=== PATIENT | female | born 1965 | race Caucasian/White ===

== ENCOUNTER 2023-07-24 09:09 | Outpatient (OUT) | payer MEDICARE, MEDICAID, SELFPAY ==
[2023-07-24 09:40] LABS: Hematocrit 47.3 % (36.0-48.0); Hemoglobin 15.9 g/dL (12.0-16.0)
[2023-07-24 09:42] LABS: Bilirubin Urine NEGATIVE (NEGATIVE); Blood Urine NEGATIVE (NEGATIVE); Clarity Urine CLEAR (CLEAR); Color Urine LT. YELLOW (YELLOW); Glucose Urine UA NEGATIVE (NEGATIVE); Ketones Urine NEGATIVE (NEGATIVE); Leukocyte Esterase Urine NEGATIVE (NEGATIVE); Nitrite Urine NEGATIVE (NEGATIVE); Protein Urine NEGATIVE (NEG/TRACE); Specific Gravity Urine <=1.005 (1.005-1.025); Urobilinogen Urine 0.2 EU/dL (0.2-1.0); pH Urine 5.5 (5.0-9.0)
[2023-07-24 09:51] LABS: Bacteria Urine NONE SEEN #/HPF (NONE SEEN); Cast Seen? NONE SEEN #/LPF (NONE SEEN); Crystals Seen? None Seen #/HPF (None Seen); Mucus Urine NONE SEEN (NONE SEEN); RBC Urine 0-2 #/HPF (0-2); Squamous Epithelial Cell Urine RARE #/LPF (NONE/RARE); Urine Culture Indicated NO; WBC Urine 0-2 #/HPF (NONE SEEN)
[2023-07-24 11:53] LABS: Creatinine Urine Random 17.96 mg/dL (20.00-300.00)
[2023-07-24 11:56] LABS: Protein Creatinine Ratio Urine 0.33; Total Protein Urine Random <6.0 mg/dL (<=11.9)
[2023-07-24 13:15] LABS: Albumin Level 3.8 g/dL (3.4-5.0); Anion Gap 16.3; BUN Creatinine Ratio 10.1; Calcium 9.7 mg/dL (8.5-10.1); Carbon Dioxide 26.9 mmol/L (21.0-32.0); Chloride 102 mmol/L (98-107); Estimated GFR (African America 52 (>=60); Estimated GFR (Non-African Ame 43 (>=60); Glucose 92 mg/dL (74-106); Magnesium 1.8 mg/dL (1.8-2.4); Potassium 4.2 mmol/L (3.5-5.1); Sodium 141 mmol/L (136-145); Uric Acid 7.2 mg/dL (2.6-6.0)
[2023-07-25 13:08] LABS: PTH, Intact 34 pg/mL (15-65)
== END 2023-07-24 09:10 | disposition home or self-care (01) ==
PROVIDERS: PCP Nurse Practitioner; Visit Provider Internal Medicine
DX: I12.9 Hypertensive chronic kidney disease with stage 1 through stage 4 chronic kidney disease, or unspecified chronic kidney disease (principal); N18.30 Chronic kidney disease, stage 3 unspecified; E55.9 Vitamin D deficiency, unspecified; E79.0 Hyperuricemia without signs of inflammatory arthritis and tophaceous disease; E87.6 Hypokalemia; E83.42 Hypomagnesemia
CPT/HCPCS: 36415; 80069; 81001; 82306; 82570; 83735; 83970; 84156; 84550; 85014; 85018

== ENCOUNTER 2023-09-24 08:15 | Outpatient (OUT) | payer MEDICARE, MEDICAID, SELFPAY ==
--- NOTE | 2023-09-24 08:18 | MM_ITS ---
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 MG MAMM SCREEN 3D KYLEE CAD, 05/16/2021. MG MAMM RT DIAG W CAD, 08/29/2020. MG MAMM KYLEE SCRN W CAD DIG, 04/23/2013. INDICATIONS: Screening Calculator Name NCI Breast Cancer Risk Assessment Tool 5 Year Breast Cancer Risk 1.00% Lifetime Breast Cancer Risk 6.30% Personal Breast Cancer No Personal Ovarian Cancer No Treatments None Family Cancers Father with lung cancer at age 60. LOCATION: [facility] BREAST COMPOSITION: Scattered areas fibroglandular density. FINDINGS: DIAGNOSTIC CATEGORY 2--BENIGN FINDING: RIGHT BREAST: No significant suspicious finding. No significant change has occurred. LEFT BREAST: No significant suspicious finding. Stable biopsy marker clip upper-outer quadrant. No significant change has occurred. RECOMMENDATIONS: ROUTINE MAMMOGRAM AND CLINICAL EVALUATION IN 12 MONTHS. PLEASE NOTE: A NORMAL MAMMOGRAM DOES NOT EXCLUDE THE POSSIBILITY OF BREAST CANCER. A CLINICALLY SUSPICIOUS PALPABLE LUMP SHOULD BE BIOPSIED. Dictated by: Jim Gabriel M.D. on 09/29/2023 at 12:40 Approved by: Jim Gabriel M.D. on 09/29/2023 at 12:45
== END 2023-09-24 08:16 | disposition home or self-care (01) ==
LOC: MAMMO 08:16
PROVIDERS: PCP Nurse Practitioner; Visit Provider Nurse Practitioner
DX: Z12.31 Encounter for screening mammogram for malignant neoplasm of breast (principal)
CPT/HCPCS: 77063; 77067

== ENCOUNTER 2024-02-17 08:21 | Outpatient (OUT) | payer MEDICARE, MEDICAID, SELFPAY ==
--- OUTSIDE RECORDS SUMMARY | 2024-02-17 08:26 | XMS_ITS | CCD ---
Author Organization [facility] Care Team Providers Care Blind Stitch Machine Operator Name Role Phone Michael Mcguire Unavailable Berny, Rosanna Unavailable AICHHOLZ, ANODE MACHINE OPERATOR ZEE Primary Care Unavailable AICHHOLZ, ANODE MACHINE OPERATOR ZEE Admitting Unavailable AICHHOLZ, ANODE MACHINE OPERATOR ZEE Consulting Unavailable AICHHOLZ, ANODE MACHINE OPERATOR ZEE Attending Unavailable AICHHOLZ, ANODE MACHINE OPERATOR ZEE Attending Unavailable AICHHOLZ, ANODE MACHINE OPERATOR ZEE Consulting Unavailable AICHHOLZ, ANODE MACHINE OPERATOR ZEE Primary Care Unavailable AICHHOLZ, ANODE MACHINE OPERATOR ZEE Admitting Unavailable BERNY, ROSANNA Consulting Unavailable BERNY, ROSANNA Attending Unavailable BERNY, ROSANNA Admitting Unavailable FAWWAD, HARVEY H Primary Care Unavailable AICHHOLZ, ANODE MACHINE OPERATOR ZEE Attending Unavailable AICHHOLZ, ANODE MACHINE OPERATOR ZEE Consulting Unavailable AICHHOLZ, ANODE MACHINE OPERATOR ZEE Primary Care Unavailable AICHHOLZ, ANODE MACHINE OPERATOR ZEE Admitting Unavailable AICHHOLZ, ANODE MACHINE OPERATOR ZEE Attending Unavailable AICHHOLZ, ANODE MACHINE OPERATOR ZEE Primary Care Unavailable AICHHOLZ, ANODE MACHINE OPERATOR ZEE Admitting Unavailable DR MICHAEL PATTERSON V Consulting Unavailable AICHHOLZ, ANODE MACHINE OPERATOR ZEE Consulting Unavailable AICHHOLZ, ANODE MACHINE OPERATOR ZEE Attending Unavailable AICHHOLZ, ANODE MACHINE OPERATOR ZEE Primary Care Unavailable AICHHOLZ, ANODE MACHINE OPERATOR ZEE Consulting Unavailable AICHHOLZ, ANODE MACHINE OPERATOR ZEE Admitting Unavailable BERNY, ROSANNA Admitting Unavailable BERNY, ROSANNA Consulting Unavailable BERNY, ROSANNA Attending Unavailable AICHHOLZ, ANODE MACHINE OPERATOR ZEE Primary Care Unavailable AICHHOLZ, ANODE MACHINE OPERATOR ZEE Attending Unavailable AICHHOLZ, ANODE MACHINE OPERATOR ZEE Primary Care Unavailable DR MICHAEL PATTERSON V Consulting Unavailable AICHHOLZ, ANODE MACHINE OPERATOR ZEE Admitting Unavailable AICHHOLZ, ANODE MACHINE OPERATOR ZEE Consulting Unavailable AICHHOLZ, ANODE MACHINE OPERATOR ZEE Attending Unavailable PRAVIN STEVENS Primary Care Unavailable PRAVIN STEVENS Consulting Unavailable PRAVIN STEVENS Admitting Unavailable Ry Tillman MD Primary Care Provider [phone] ZEE STEVENS Attending Unavailable Allergies Allergy Classification Reported Allergen(s) Allergy Type Date of Onset Reaction(s) Facility (1 source) Codeine Drug Allergy 06-18-2023 [facility] Work Phone: Medications Current Medications Medication Drug Class(es) Dates Sig (Normalized) Sig (Original) [id number] 200 actuat albuterol 0.09 mg/actuat metered dose inhaler (6 sources) beta2-Adrenergic Agonist Start: 04-15-2023 take 2 puff(s) by mouth every six hours as needed for wheezing albuterol HFA 90 mcg/act inhaler INHALE 2 PUFFS BY MOUTH EVERY 6 HOURS NEEDED FOR WHEEZING SHORTNESS OF BREATH 0 04/15/2023 Active albuterol (2.5 M G/3ML) 0.083% nebulizer solution Take 3 mL by nebulization every 6 (six) hours if needed for wheezing or shortness of breath 0 Active amitriptyline hydrochloride 150 mg oral tablet (8 sources) Tricyclic Antidepressant Start: 11-07-2023 take 1 tablet by mouth at bedtime amitriptyline (Elavil) 150 MG tablet Indications: Polyneuropathy, unspecified Take 1 tablet (150 mg) by mouth at bedtime 30 tablet 5 11/07/2023 Active take 1 tablet by juanita th every twenty-four hours Amitriptyline HCl 150 MG 1 tablet at bedtime Orally Once a day Active amoxicillin 875 mg / clavulanate 125 mg oral tablet (5 sources) Penicillin-class Antibacterial Start: 01-13-2024 End: 01-23-2024 take 1 tablet by mouth in the morning amoxicillin-clavulanate (Augmentin) 875-125 MG tablet Indications: Acute non-recurrent sinusitis of other sinus Take 1 tablet (875 mg) by mouth in the morning and 1 tablet (875 mg) before bedtime. Do all this for 10 days. 20 tablet 0 01/13/2024 01/23/2024 Active Start: 04-15-2023 take 1 tablet by juanita th in the morning amoxicillin-clavulanate (Augmentin) 875-125 MG tablet Take 1 tablet by mouth in the morning and 1 tablet in the evening. Take with meals. 0 04/15/2023 Active atorvastatin 80 mg oral tablet (8 sources) HMG-CoA Reductase Inhibitor Start: 12-22-2023 End: 03-21-2024 take 1 tablet by mouth in the morning atorvastatin (Lipitor) 80 MG tablet Indications: Hyperlipidemia, unspecified (CMS/HCC) Take 1 tablet (80 mg) by mouth in the morning. 90 tablet 0 12/22/2023 03/21/2024 Active take 1 tablet by mouth once anshul y Atorvastatin Calcium 80 MG TAKE 1 TABLET BY MOUTH DAILY Oral for 30 Active benzonatate 100 mg oral capsule (2 sources) Non-narcotic Antitussive Start: 04-15-2023 End: 01-13-2024 take 1 capsule by mouth every eight hours as needed benzonatate (Tessalon) 100 MG capsule TAKE 1 CAPSULE BY MOUTH EVERY 8 HOURS NEEDED (with full glass OF water) 0 04/15/2023 01/13/2024 Discontinued (Therapy completed) calcium carbonate 1250 mg / cholecalciferol 600 unt chewable tablet (3 sources) Vitamin D take 1 tablet by mouth every twenty-four hours Os-Osvaldo 500-600 MG-UNIT 1 tablet with a meal Orally Once a day Active celecoxib 200 mg oral capsule (3 sources) Nonsteroidal Anti-inflammatory Drug Start: 10-15-2023 take 1 capsule by mouth in the morning celecoxib (CeleBREX) 200 MG capsule Take 1 capsule by mouth in the morning. 0 10/15/2023 Active cholecalciferol 1.25 mg oral capsule (1 source) Vitamin D take 1 capsule by mouth every week Vitamin D3 1.25 MG (19527 UT) 1 capsule Orally once a week Active ciclopirox 7.7 mg/ml topical cream (3 sources) Start: 12-09-2022 ciclopirox (Loprox) 0.77 % cream APPLY TO THE AFFECTED AREA(S) TWICE DAILY NEEDED 0 12/09/2022 Active cyclobenzaprine hydrochloride 10 mg oral tablet (8 sources) Muscle Relaxant take 1 tablet by mouth at bedtime cyclobenzaprine (Flexeril) 10 MG tablet Take 10 mg by mouth at bedtime. 0 Active DULoxetine 60 mg delayed release oral capsule (8 sources) Serotonin and Norepinephrine Reuptake Inhibitor Start: 12-22-2023 End: 03-21-2024 take 1 capsule by mouth in the morning DULoxetine (Cymbalta) [address] capsule Indications: Depression, unspecified (CMS/HCC) Take 1 capsule (60 mg) by mouth in the morning. 90 capsule 0 12/22/2023 03/21/2024 Active take 1 capsule by mo ut every twenty-four hours DULoxetine HCl 60 MG 1 capsule Orally Once a day Active ergocalciferol 1.25 mg oral capsule (7 sources) Provitamin D2 Compound Start: 12-22-2023 End: 03-15-2024 take 1 capsule by mouth every week ergocalciferol (Vitamin D2) 1.25 MG (52104 UT) capsule Indications: Vitamin D deficiency, unspecified Take 1 capsule (1.25 mg) by mouth 1 (one) time per week 12 capsule 0 12/22/2023 03/15/2024 Active take 1 capsule by mouth every we ek Vitamin D (Ergocalciferol) 50 MCG (1999 UT) 1 capsule Orally once a week Active take 1 capsule by mo uth every twenty-four hours Vitamin D (Ergocalciferol) 50 MCG (1999 UT) 1 capsule Orally Once a day Active gabapentin 600 mg oral tablet (8 sources) Anti-epileptic Agent Start: 11-07-2023 take 1 tablet by mouth every eight hours gabapentin (Neurontin) 600 MG tablet Indications: Fibromyalgia Take 1 tablet (600 mg) by mouth every 8 (eight) hours 90 tablet 5 11/07/2023 Active take 1 tablet by mouth every eig ht hours Gabapentin 600 MG 1 tablet Orally three times a day Active levothyroxine sodium 0.137 mg oral tablet (8 sources) l-Thyroxine Start: 11-07-2023 take 1 tablet by mouth before mealtime levothyroxine (Synthroid, Levoxyl) 137 MCG tablet Indications: Hypothyroidism, unspecified (CMS/HCC) Take 137 mcg by mouth in the morning. Take before meals. 30 tablet 5 11/07/2023 Active take 1 tablet by juanita th once daily in the morning Levoxyl 137 MCG 1 tablet in the morning on an empty stomach Orally Once a day Active take 1 tablet by juanita th once daily in the morning Levoxyl 125 MCG 1 tablet in the morning on an empty stomach Orally Once a day Active linaclotide 0.145 mg oral capsule (8 sources) Guanylate Cyclase-C Agonist Start: 11-21-2022 Linzess 145 MCG capsule TAKE 1 CAPSULE BY MOUTH 30 MINUTES BEFORE the first meal OF the day ON AN EMPTY STOMACH 0 11/21/2022 Active Start: 08-01-2021 Linzess 145 MC G 1 capsule at least 30 minutes before the first meal of the day on an empty stomach Orally Once a day for 30 day(s) Aug, Active magnesium oxide 400 mg oral tablet (5 sources) Start: 06-06-2022 take 1 tablet by mouth in the morning magnesium oxide (Mag-Ox) 400 (240 Mg) MG tablet Take 400 mg by mouth in the morning. 0 06/18/2023 Active Magnesium Oxide -Mg Supplement 400 (240 Mg) MG (1 source) take 1 tablet by mouth once daily Magnesium Oxide -Mg Supplement 400 (240 Mg) MG TAKE 1 TABLET BY MOUTH DAILY for 90 Active 24 hr metoprolol succinate 100 mg extended release oral tablet (8 sources) beta-Adrenergic Arsenio Start: 05-20-2023 take 1 tablet by mouth every twenty-four hours in the morning metoprolol succinate XL (Toprol-XL) 100 MG 24 hr tablet Take 100 mg by mouth in the morning. 0 05/20/2023 Active take 1 tablet by juanita th every twenty-four hours Toprol XL 100 MG 1 tablet Orally Once a day Active take 1 tablet by juanita th every twenty-four hours Toprol XL 50 MG 1 tablet Orally Once a day Active Multiple Vitamin (Tab-A-Flavio) tablet (3 sources) Start: 11-21-2022 take 1 tablet by mouth in the morning Multiple Vitamin (Tab-A-Flavio) tablet Take 1 tablet by mouth in the morning. 0 11/21/2022 Active omeprazole 40 mg delayed release oral capsule (5 sources) Proton Pump Inhibitor take 1 capsule by mouth once daily Omeprazole 40 MG 1 capsule 30 minutes before morning meal Orally Once a day Active pantoprazole 40 mg delayed release oral tablet (3 sources) Proton Pump Inhibitor Start: 11-07-2023 take 1 tablet by mouth in the morning pantoprazole (ProtoNix) 40 MG EC tablet Indications: Gastro-esophageal reflux disease without esophagitis Take 1 tablet (40 mg) by mouth in the morning. 30 tablet 5 11/07/2023 Active phentermine hydrochloride 37.5 mg oral tablet (2 sources) Sympathomimetic Amine Anorectic Start: 01-13-2024 End: 02-12-2024 take 1 tablet by mouth before mealtime phentermine (Adipex-P) 37.5 MG tablet Indications: BMI 40.0-44.9, adult (CMS/HCC) Take 1 tablet (37.5 mg) by mouth in the morning. Take before meals. 30 tablet 0 01/13/2024 02/12/2024 Active spironolactone 50 mg oral tablet (8 sources) Aldosterone Antagonist Start: 05-20-2023 take 1 tablet by mouth in the morning spironolactone (Aldactone) 50 MG tablet Take 50 mg by mouth in the morning. 0 05/20/2023 Active Tab-A-Flavio - (4 sources) take 1 tablet by mouth every twenty-four hours Tab-A-Flavio - 1 tablet Orally Once a day Active traMADol hydrochloride 50 mg oral tablet (3 sources) Opioid Agonist traMADol (Ultram ) 50 MG tablet Take by mouth. 0 Active Completed/Discontinued Medications Medication Drug Class(es) Dates Sig (Normalized) Sig (Original) dicyclomine hydrochloride 20 mg oral tablet (4 sources) Anticholinergic Start: 09-12-2021 take 1 tablet by mouth twice daily as needed Dicyclomine HCl 20 MG 1 tablet Orally TWICE A DAY prn for 30 day(s) Aug, Not-Taking ondansetron 4 mg oral tablet (7 sources) Serotonin-3 Receptor Antagonist Start: 08-01-2021 take 1 tablet by mouth three times daily as needed Ondansetron HCl 4 MG 1 tablet Orally TID PRN for 30 day(s) Aug, Not-Taking Problems Active Problems Problem Classification Problem Date Documented Da te Episodic/Chronic Anxiety disorders (2 sources) Mixed anxiety and depressive disorder; Translations: [Anxiety disorder, unspecified] Onset: 4 01-13-2024 Chronic Chronic kidney disease (10 sources) Chronic kidney disease stage 3; Translations: [Chronic kidney disease, stage 3 (moderate)] Onset: 4 01-13-2024 Chronic Chronic kidney disease (5 sources) Chronic kidney disease; Translations: [Chronic kidney disease, stage III (moderate)] Onset: 1 Resolved: Chronic obstructive pulmonary disease and bronchiectasis (3 sources) Chronic obstructive lung disease; Translations: [Chronic obstructive pulmonary disease, unspecified] Onset: 4 01-13-2024 Chronic Disorders of lipid metabolism (6 sources) Hyperlipidemia, unspecified; Translations: [Hyperlipidemia] Onset: 3 01-13-2024 Chronic Esophageal disorders (3 sources) Gastroesophageal reflux disease; Translations: [Gastro-esophageal reflux disease without esophagitis] Onset: 4 01-13-2024 Chronic Essential hypertension (11 sources) Hypertensive disorder; Translations: [Essential (primary) hypertension] Onset: 3 01-13-2024 Chronic Fluid and electrolyte disorders (3 sources) Hypokalemia; Translations: [HYPOKALEMIA] Onset: Resolved: Episodic Headache; including migraine (3 sources) Migraine; Translations: [Migraine, unspecified, not intractable, without status migrainosus] Onset: 4 01-13-2024 Chronic Hypertension with complications and secondary hypertension (11 sources) Chronic kidney disease due to hypertension; Translations: [Hypertensive chronic kidney disease with stage 1 through stage 4 chronic kidney disease, or unspecified chronic kidney disease] Onset: 1 Resolved: 1 Chronic Immunizations and screening for infectious disease (3 sources) Anti-nuclear factor positive; Translations: [Other specified abnormal immunological findings in serum] Onset: 4 01-13-2024 Episodic Mood disorders (3 sources) Major depressive disorder; Translations: [Major depressive disorder, single episode, unspecified] Onset: 4 01-13-2024 Chronic Nausea and vomiting (5 sources) Nausea; Translations: [Nausea] Episodic Nutritional deficiencies (11 sources) Vitamin D deficiency; Translations: [Vitamin D deficiency, unspecified] Onset: 1 Resolved: 1 Chronic Nutritional deficiencies (4 sources) Deficiency of other specified B group vitamins; Translations: [Cobalamin deficiency] Onset: 3 01-13-2024 Episodic Other acquired deformities (3 sources) Spondylolisthesis; Translations: [Spondylolisthesis, site unspecified] Onset: 4 01-13-2024 Episodic Other circulatory disease (3 sources) Raynaud's phenomenon; Translations: [Raynaud's syndrome without gangrene] Onset: 4 01-13-2024 Chronic Other connective tissue disease (3 sources) Fibromyalgia; Translations: [Fibromyalgia] Onset: 4 01-13-2024 Episodic Other disorders of stomach and duodenum (5 sources) Gastroparesis syndrome; Translations: [Gastroparesis] Episodic Other gastrointestinal disorders (5 sources) Irritable bowel syndrome characterized by constipation; Translations: [Irritable bowel syndrome with constipation] Chronic Other gastrointestinal disorders (1 source) Irritable bowel syndrome with constipation; Translations: [Irritable bowel syndrome with constipation K58.1] Onset: 1 Resolved: 1 Chronic Other gastrointestinal disorders (8 sources) Constipation; Translations: [Constipation, unspecified] Onset: 4 01-13-2024 Episodic Other liver diseases (3 sources) Alkaline phosphatase raised; Translations: [Abnormal levels of other serum enzymes] Onset: 4 01-13-2024 Episodic Other nervous system disorders (3 sources) Peripheral nerve disease ; Translations: [Polyneuropathy, unspecified] Onset: 4 01-13-2024 Chronic Other nervous system disorders (3 sources) Paresthesia of lower extremity; Translations: [Paresthesia of skin] Onset: 4 01-13-2024 Episodic Other nutritional; endocrine; and metabolic disorders (2 sources) Hypomagnesemia; Translations: [Hypomagnesemia] Chronic Other nutritional; endocrine; and metabolic disorders (1 source) Hypomagnesemia Chronic Other nutritional; endocrine; and metabolic disorders (4 sources) Body mass index 40+ - severely obese; Translations: [Body mass index (BMI) 40.0-44.9, adult] Onset: 4 01-13-2024 Chronic Other nutritional; endocrine; and metabolic disorders (4 sources) Severe obesity; Translations: [Morbid (severe) obesity due to excess calories] Onset: 4 01-13-2024 Chronic Other nutritional; endocrine; and metabolic disorders (3 sources) Hyperuricemia without signs of inflammatory arthritis and tophaceous disease; Translations: [HU W/O SIGNS IA AND TOPHACEOUS DZ] Onset: 1 Resolved: 1 Episodic Other nutritional; endocrine; and metabolic disorders (3 sources) Hyperuricemia; Translations: [Hyperuricemia without signs of inflammatory arthritis and tophaceous disease] Onset: 4 01-13-2024 Episodic Other upper respiratory disease (3 sources) Allergic disposition; Translations: [Other allergic rhinitis] Onset: 4 01-13-2024 Chronic Other upper respiratory infections (4 sources) Acute sinusitis; Translations: [Other acute sinusitis] Onset: 4 01-13-2024 Episodic Peripheral and visceral atherosclerosis (4 sources) Peripheral vascular disease, unspecified; Translations: [PERIPHERAL VASCULAR DISEASE UNS] Onset: 2 Chronic Residual codes; unclassified (5 sources) Obstructive sleep apnea syndrome; Translations: [Obstructive sleep apnea (adult) (pediatric)] Onset: 4 01-13-2024 Chronic Residual codes; unclassified (5 sources) Tobacco user; Translations: [Tobacco use] Onset: 4 01-13-2024 Episodic Spondylosis; intervertebral disc disorders; other back problems (16 sources) Intervertebral disc disorder of cervical region with myelopathy; Translations: [Cervical disc disorder with myelopathy, unspecified cervical region] Onset: 4 01-13-2024 Chronic Spondylosis; intervertebral disc disorders; other back problems (3 sources) Spinal stenosis; Translations: [Spinal stenosis, site unspecified] Onset: 4 01-13-2024 Episodic Thyroid disorders (15 sources) Hypothyroidism; Translations: [Unspecified hypothyroidism] Onset: 2 Chronic Unclassified (4 sources) CHRN KIDNEY DISEASE STG 3 UNSP; Translations: [CHRN KIDNEY DISEASE STG 3 UNSP] Onset: 2 Past or Other Problems Problem Classification Problem Date Documented Da te Episodic/Chronic Abdominal pain (1 source) Upper abdominal pain, unspecified; Translations: [Upper abdominal pain R10.10] Onset: 09-12-2021 Resolved: 09-12-2021 Episodic Malaise and fatigue (4 sources) Other fatigue; Translations: [OTHER FATIGUE] Onset: 03-05-2022 Episodic Other disorders of stomach and duodenum (1 source) Gastroparesis; Translations: [Gastroparesis K31.84] Onset: 09-12-2021 Resolved: 09-12-2021 Episodic Other gastrointestinal disorders (1 source) Constipation, unspecified Onset: 06-27-2022 Resolved: 06-27-2022 Episodic Other liver diseases (4 sources) Abnormal levels of other serum enzymes; Translations: [ABNORMAL LEVELS OTHER SERUM ENZYMES] Onset: 03-29-2022 Episodic Other screening for suspected conditions (not mental disorders or infectious disease) (4 sources) Encounter for screening mammogram for malignant neoplasm of breast; Translations: [ENC SCR MAMMO MALIG NEOPLASM BREAST] Onset: 08-13-2022 Episodic Residual codes; unclassified (1 source) Family history of malignant neoplasm of trachea, bronchus and lung; Translations: [FAM HX MALIG NEOPLSM TRACH BRON LNG] Onset: 08-18-2022 Episodic Thyroid disorders (3 sources) Disorder of thyroid gland; Translations: [Disorder of thyroid, unspecified] Onset: 10-16-2023 Resolved: 10-16-2023 10-16-2023 Episodic Unclassified (1 source) CHRN KIDNEY DISEASE STG 3 UNSP; Translations: [CHRN KIDNEY DISEASE STG 3 UNSP] Onset: 12-31-2022 Results Test Name Value Interpretation Reference Range Facility FREE T4on 02-03-2023 Free T4 [Mass/Vol] 1.10 ng/dL Normal 0.76-1.46 [facility] Comment on above: Performed By: #### U AMIC #### [facility] [address] [address] [address] Son Higgins TSHon 02-03-2023 TSH 1.871 uIU/mL Normal 0.358-3.740 [facility] Comment on above: Performed By: #### U AMIC #### [facility] [address] [place], [place] [address] Dr. Son Higgins PTH INTACTon 01-01-2023 PTH, Intact 18 pg/mL Normal 15-65 [facility] Comment on above: Performed By: #### P THINT #### [facility] [address] [place] [address] Dr. Son Higgins HEMOGRAM AND PLATELon 2022 Hematocrit (Bld) [Volume fraction] 47.4 % Normal 36.0-48.0 [facility] Comment on above: Performed By: #### U AMIC #### [facility] [address] [place] [address] Dr. Son Higgins Hemoglobin (Bld) [Mass/Vol] 15.5 g/dL Normal 12.0-16.0 [facility] Comment on above: Performed By: #### U AMIC #### [facility] [address] [place] [address] Dr. Son Higgins MCH (RBC) [Entitic mass] 30.3 pg Normal 26.7-34.0 [facility] Comment on above: Performed By: #### U AMIC #### [facility] [address] [place] [address] Dr. Son Higgins MCHC (RBC) [Mass/Vol] 32.7 g/dL Normal 29.9-35.2 [facility] Comment on above: Performed By: #### U AMIC #### [facility] [address] [place] [address] Dr. Son Higgins MCV (RBC) [Entitic vol] 92.6 fL Normal 81.0-99.0 [facility] Comment on above: Performed By: #### U AMIC #### [facility] [address] [place] [address] Dr. Son Higgins PLT 271 103/ul Normal 150-450 [facility] Comment on above: Performed By: #### U AMIC #### [facility] [address] [place] [address] Dr. Son Higgins RBC 5.12 106/ul Normal 4.20-5.40 [facility] Comment on above: Performed By: #### U AMIC #### [facility] [address] [place] [address] Dr. Son Higgins WBC 11.5 103/ul Critically high 4.0-11.0 [facility] Comment on above: Performed By: #### U AMIC #### [facility] [address] [address] [address] Son Higgins MAGNESIUMon 12-31-2022 Magnesium [Mass/Vol] 1.5 mg/dL Critically low 1.8-2.4 [facility] Comment on above: Performed By: #### M G, URIC, RENAL #### [facility] [address] [address] [address] Son Higgins RENAL FUNCTION PANELon 12-31 Albumin [Mass/Vol] 3.6 g/dL Normal 3.4-5.0 [facility] Comment on above: Performed By: #### M G, URIC, RENAL #### [facility] [address] [place] [address] Dr. Son Higgins Calcium [Mass/Vol] 9.5 mg/dL Normal 8.5-10.1 [facility] Comment on above: Performed By: #### M G, URIC, RENAL #### [facility] [address] [place] [address] Dr. Son Higgins Chloride [Moles/Vol] 100 mmol/L Normal 98-107 [facility] Comment on above: Performed By: #### M G, URIC, RENAL #### [facility] [address] [place] [address] Dr. Son Higgins CO2 [Moles/Vol] 29.3 mmol/L Normal 21.0-32.0 [facility] Comment on above: Performed By: #### M G, URIC, RENAL #### [facility] [address] [place] [address] Dr. Son Higgins Creatinine [Mass/Vol] 1.32 mg/dL Critically high 0.55-1.02 [facility] Comment on above: Performed By: #### M G, URIC, RENAL #### [facility] [address] [place] [address] Dr. Son Higgins EGFR-AF NEPALESE 51 mL/min/1.73m2 Critically low >=60 [facility] Comment on above: Performed By: #### M G, URIC, RENAL #### [facility] [address] [address] [address] Son Higgins EGFR-NON AF NEPALESE 42 mL/min/1.73m2 Critically low >=60 [facility] Comment on above: Performed By: #### M G, URIC, RENAL #### [facility] [address] [address] [address] Son Higgins Glucose [Mass/Vol] 110 mg/dL Critically high 74-106 [facility] Comment on above: Performed By: #### M G, URIC, RENAL #### [facility] [address] [address] [address] Son Higgins Phosphate [Mass/Vol] 4.3 mg/dL Normal 2.6-4.7 [facility] Comment on above: Performed By: #### M G, URIC, RENAL #### [facility] [address] [address] [address] Son Higgins Potassium [Moles/Vol] 3.5 mmol/L Normal 3.5-5.1 [facility] Comment on above: Performed By: #### M G, URIC, RENAL #### [facility] [address] [address] [address] Son Higgins Sodium [Moles/Vol] 140 mmol/L Normal 136-145 [facility] Comment on above: Performed By: #### M G, URIC, RENAL #### [facility] [address] [address] [address] Son Higgins Urea nitrogen [Mass/Vol] 12.0 mg/dL Normal 7.0-18.0 [facility] Comment on above: Performed By: #### M G, URIC, RENAL #### [facility] [address] [address] [address] Son Higgins UA RANDOM W/MICROSCOPICon BACTERIA NONE SEEN Normal NONE SEEN [facility] Comment on above: Performed By: #### U AMIC #### [facility] [address] [address] [address] Son Higgins Bilirubin Ql (U) Negative Normal NEGATIVE [facility] Comment on above: Performed By: #### U AMIC #### [facility] [address] [address] [address] Son Higgins CAST NONE SEEN Normal NONE SEEN [facility] Comment on above: Performed By: #### U AMIC #### [facility] [address] [address] [address] Son Higgins Clarity (U) CLEAR Normal CLEAR [facility] Comment on above: Performed By: #### U AMIC #### [facility] [address] [address] [address] Son Higgins Color (U) LT. YELLOW Normal YELLOW [facility] Comment on above: Performed By: #### U AMIC #### [facility] [address] [address] [address] Son Higgins Crystals LM Nom (Urine sed) NONE SEEN Normal NONE SEEN [facility] Comment on above: Performed By: #### U AMIC #### [facility] [address] [address] [address] Son Higgins Epithelial cells LM Ql (Urine sed) NONE SEEN Normal NONE SEEN /RARE [facility] Comment on above: Performed By: #### U AMIC #### [facility] [address] [place] [address] Dr. Son Higgins Glucose Ql (U) Negative Normal NEGATIVE [facility] Comment on above: Performed By: #### U AMIC #### [facility] [address] [address] [address] Son Higgins Hemoglobin Ql (U) Negative Normal NEGATIVE [facility] Comment on above: Performed By: #### U AMIC #### [facility] [address] [address] [address] Son Higgins Ketones Ql (U) Negative Normal NEGATIVE [facility] Comment on above: Performed By: #### U AMIC #### [facility] [address] [address] [address] Son Higgins LEUKOCYTES Negative Normal NEGATIVE [facility] Comment on above: Performed By: #### U AMIC #### [facility] [address] [address] [address] Son Higgins MUCOUS NONE SEEN Normal NONE SEEN [facility] Comment on above: Performed By: #### U AMIC #### [facility] [address] [address] [address] Son Higgins Nitrite Ql (U) Negative Normal NEGATIVE [facility] Comment on above: Performed By: #### U AMIC #### [facility] [address] [place] [address] Dr. Son Higgins pH (U) 5.5 [pH] Normal 5-9 [facility] Comment on above: Performed By: #### U AMIC #### [facility] [address] [place] [address] Dr. Son Higgins RBC 0-2 Normal 0-2 [facility] Comment on above: Performed By: #### U AMIC #### [facility] [address] [place] [address] Dr. Son Higgins SPEC GRAVITY <=1.005 Abnormal 1.005-<=1.025 [facility] Comment on above: Performed By: #### U AMIC #### [facility] [address] [address] [address] Son Higgins UA PROTEIN Negative Normal NEGATIVE/ TRACE [facility] Comment on above: Performed By: #### U AMIC #### [facility] [address] [place] [address] Dr. Son Higgins Urobilinogen Qn (U) 0.2 {Lopez'U}/dL Normal 0.2 - 1. 0 [facility] Comment on above: Performed By: #### U AMIC #### [facility] [address] [place] [address] Dr. Son Higgins WBC NONE SEEN Normal NONE SEEN [facility] Comment on above: Performed By: #### U AMIC #### [facility] [address] [place] [address] Dr. Son Higgins URIC ACID SERUMon 12-31-2022 Urate [Mass/Vol] 6.8 mg/dL Critically high 2.6-6.0 [facility] Comment on above: Performed By: #### M G, URIC, RENAL #### [facility] [address] [place] [address] Dr. Son Higgins URINE T PROTEIN CREAT RATIOo n 12-31-2022 UR PROT CREAT RAT 0.37 Normal [facility] Comment on above: Result Comment: Prev iously reported as: 0.30 On 12/31/2022 09:37 By [email or web address] Performed By: #### M G, URIC, RENAL #### [facility] [address] [place] [address] Dr. Son Higgins UR TOTAL PROTEIN <6.0 Normal <=12.0 [facility] Comment on above: Result Comment: Prev iously reported as: 4.8 On 12/31/2022 09:37 By [email or web address] Performed By: #### M G, URIC, RENAL #### [facility] [address] [place] [address] Dr. Son Higgins URINE CREAT 16.27 mg/dL Critically low 20.00-300.00 [facility] Comment on above: Performed By: #### M G, URIC, RENAL #### [facility] [address] [place] [address] Dr. Son Higgins VITAMIN D 25 OHon 12-31-2022 VIT D 25-OH 45.7 ng/mL Normal [facility] Comment on above: Performed By: #### V ITAD #### [facility] [address] [place] [address] Dr. Son Higgins VIT D RANGES SEE BELOW Normal [facility] Comment on above: Result Comment: <20 ng/mL Vit D deficient 20 - <30 ng/mL Vit D insufficient 30 - 100 ng/mL Vit D sufficient >100 ng/mL Potential Toxicity Performed By: #### V ITAD #### [facility] [address] [place] [address] Dr. Son Higgins CBC AUTO DIFFon 12-10-2022 BASO # 0.1 103/ul Normal 0.0-0.1 [facility] Comment on above: Performed By: #### C BC #### [facility] [address] [address] [address] Son Higgins Basophils/100 WBC (Bld) 0.9 % Normal 0.2-2.0 [facility] Comment on above: Performed By: #### C BC #### [facility] [address] [place] [address] Dr. Son Higgins EO # 0.4 103/ul Normal 0.0-0.7 [facility] Comment on above: Performed By: #### C BC #### [facility] [address] [place] [address] Dr. Son Higgins Eosinophils/100 WBC (Bld) 3.1 % Normal 0.9-7.0 [facility] Comment on above: Performed By: #### C BC #### [facility] [address] [place] [address] Dr. Son Higgins Erythrocyte distribution width (RBC) [Ratio] 15.0 % Normal 11.0-15.0 [facility] Comment on above: Performed By: #### C BC #### [facility] [address] [place] [address] Dr. Son Higgins Hematocrit (Bld) [Volume fraction] 44.5 % Normal 36.0-48.0 [facility] Comment on above: Performed By: #### C BC #### [facility] [address] [place] [address] Dr. Son Higgins Hemoglobin (Bld) [Mass/Vol] 15.0 g/dL Normal 12.0-16.0 [facility] Comment on above: Performed By: #### C BC #### [facility] [address] [place] [address] Dr. Son Higgins IG # 0.07 10e3/ul Critically high 0.00-0.03 [facility] Comment on above: Performed By: #### C BC #### [facility] [address] [place] [address] Dr. Son Higgins IG % 0.6 % Critically high 0.0-0.5 [facility] Comment on above: Performed By: #### C BC #### [facility] [address] [place] [address] Dr. Son Higgins LYMPH # 3.7 103/ul Normal 1.2-3.8 [facility] Comment on above: Performed By: #### C BC #### [facility] [address] [place] [address] Dr. Son Higgins Lymphocytes/100 WBC (Bld) 31.8 % Normal 20.5-60.0 [facility] Comment on above: Performed By: #### C BC #### [facility] [address] [place] [address] Dr. Son Higgins MANUAL DIFF REQ NO Normal [facility] Comment on above: Performed By: #### C BC #### [facility] [address] [place] [address] Dr. Son Higgins MCH (RBC) [Entitic mass] 30.4 pg Normal 26.7-34.0 [facility] Comment on above: Performed By: #### C BC #### [facility] [address] [place] [address] Dr. Son Higgins MCHC (RBC) [Mass/Vol] 33.7 g/dL Normal 29.9-35.2 [facility] Comment on above: Performed By: #### C BC #### [facility] [address] [place] [address] Dr. Son Higgins MCV (RBC) [Entitic vol] 90.3 fL Normal 81.0-99.0 [facility] Comment on above: Performed By: #### C BC #### [facility] [address] [place] [address] Dr. Son Higgins MONO # 0.6 103/ul Normal 0.3-0.8 [facility] Comment on above: Performed By: #### C BC #### [facility] [address] [place] [address] Dr. Son Higgins Monocytes/100 WBC (Bld) 5.1 % Normal 1.7-12.0 [facility] Comment on above: Performed By: #### C BC #### [facility] [address] [place] [address] Dr. Son Higgins NEUT # 6.8 103/ul Critically high 1.4-6.5 [facility] Comment on above: Performed By: #### C BC #### [facility] [address] [address] [address] Son Higgins Neutrophils/100 WBC (Bld) 58.5 % Normal 43.0-75.0 [facility] Comment on above: Performed By: #### C BC #### [facility] [address] [address] [address] Son Higgins Platelet mean volume (Bld) [Entitic vol] 10.5 fL Normal 9.5-13.5 [facility] Comment on above: Performed By: #### C BC #### [facility] [address] [place] [address] Dr. Son Higgins PLT 300 103/ul Normal 150-450 [facility] Comment on above: Performed By: #### C BC #### [facility] [address] [address] [address] Son Higgins RBC 4.93 106/ul Normal 4.20-5.40 [facility] Comment on above: Performed By: #### C BC #### [facility] [address] [address] [address] Son Higgins WBC 11.7 103/ul Critically high 4.0-11.0 [facility] Comment on above: Performed By: #### C BC #### [facility] [address] [place] [address] Dr. Son Higgins FREE T4on 12-10-2022 Free T4 [Mass/Vol] 0.99 ng/dL Normal 0.76-1.46 [facility] Comment on above: Performed By: #### M G, URIC, RENAL #### [facility] [address] [place] [address] Dr. Son Higgins LIPID PROFILEon 12-10-2022 CHOL-HDL RATIO NORM SEE BELOW Normal [facility] Comment on above: Result Comment: 3.3 - 4.4 LOW RISK 4.4 - 7.1 AVERAGE RISK 7.1 - 11.0 MODERATE RISK >11.0 HIGH RISK Performed By: #### M G, URIC, RENAL #### [facility] [address] [address] [address] Son Higgins Cholesterol [Mass/Vol] 160 mg/dL Normal <=200 [facility] Comment on above: Performed By: #### M G, URIC, RENAL #### [facility] [address] [address] [address] Son Higgins Cholesterol in HDL [Mass/Vol] 37 mg/dL Critically low 40-60 [facility] Comment on above: Performed By: #### M G, URIC, RENAL #### [facility] [address] [address] [address] Son Higgins Cholesterol in LDL [Mass/Vol] 86.4 mg/dL Normal [facility] Comment on above: Performed By: #### M G, URIC, RENAL #### [facility] [address] [address] [address] Son Higgins Cholesterol.total/C holesterol in HDL [Mass ratio] 4.3 {ratio} Normal [facility] Comment on above: Performed By: #### M G, URIC, RENAL #### [facility] [address] [address] [address] Son Higgins HDL NORMAL > or = 60 mg/dl - LO W CARDIOVASCULAR RISK <40 mg/dl - HIGH CARDIOVASCULAR RISK Normal [facility] Comment on above: Performed By: #### M G, URIC, RENAL #### [facility] [address] [address] [address] Son Higgins LDL CALC NORMAL SEE BELOW Normal [facility] Comment on above: Result Comment: <100 mg/dl OPTIMAL 100 - 129 mg/dl NEAR OR ABOVE OPTIMAL 130 - 159 mg/dl BORDERLINE HIGH 160 - 189 mg/dl HIGH >190 mg/dl VERY HIGH Performed By: #### M G, URIC, RENAL #### [facility] [address] [address] [address] Son Higgins Triglyceride [Mass/Vol] 183 mg/dL Critically high <=150 [facility] Comment on above: Performed By: #### M G, URIC, RENAL #### [facility] [address] [address] [address] Son Higgnis VLDL CALC 36.6 mg/dL Normal [facility] Comment on above: Performed By: #### M G, URIC, RENAL #### [facility] [address] [address] [address] Son Higgins PROF 14(COMP METB)on 023 Albumin [Mass/Vol] 3.7 g/dL Normal 3.4-5.0 [facility] Comment on above: Performed By: #### U AMIC #### [facility] [address] [address] [address] Son Higgins Albumin/Globulin [Mass ratio] 0.8 {ratio} Normal [facility] Comment on above: Performed By: #### U AMIC #### [facility] [address] [place] [address] Dr. Son Higgins ALP [Catalytic activity/Vol] 135 U/L Critically high 46-116 [facility] Comment on above: Performed By: #### U AMIC #### [facility] [address] [address] [address] Son Higgins ALT [Catalytic activity/Vol] 39 U/L Normal 14-59 [facility] Comment on above: Performed By: #### U AMIC #### [facility] [address] [address] [address] Son Higgins Anion gap [Moles/Vol] 14.0 mmol/L Normal [facility] Comment on above: Performed By: #### U AMIC #### [facility] [address] [address] [address] Son Higgins AST [Catalytic activity/Vol] 36 U/L Normal 15-37 [facility] Comment on above: Performed By: #### U AMIC #### [facility] [address] [address] [address] Son Higgins Bilirubin [Mass/Vol] 0.5 mg/dL Normal 0.2-1.0 [facility] Comment on above: Performed By: #### U AMIC #### [facility] [address] [address] [address] Son Higgins Calcium [Mass/Vol] 9.4 mg/dL Normal 8.5-10.1 [facility] Comment on above: Performed By: #### U AMIC #### [facility] [address] [address] [address] Son Higgins Chloride [Moles/Vol] 101 mmol/L Normal 98-107 [facility] Comment on above: Performed By: #### U AMIC #### [facility] [address] [address] [address] Son Higgins CO2 [Moles/Vol] 30.5 mmol/L Normal 21.0-32.0 [facility] Comment on above: Performed By: #### U AMIC #### [facility] [address] [address] [address] Son Higgins Creatinine [Mass/Vol] 1.40 mg/dL Critically high 0.55-1.02 [facility] Comment on above: Performed By: #### U AMIC #### [facility] [address] [address] [address] Son Higgins EGFR-AF NEPALESE 47 mL/min/1.73m2 Critically low >=60 [facility] Comment on above: Performed By: #### U AMIC #### [facility] [address] [address] [address] Son Higgins EGFR-NON AF NEPALESE 39 mL/min/1.73m2 Critically low >=60 [facility] Comment on above: Performed By: #### U AMIC #### [facility] [address] [address] [address] Son Higgins Globulin (S) [Mass/Vol] 4.9 g/dL Normal [facility] Comment on above: Performed By: #### U AMIC #### [facility] [address] [address] [address] Son Higgins Glucose [Mass/Vol] 92 mg/dL Normal 74-106 [facility] Comment on above: Performed By: #### U AMIC #### [facility] [address] [address] [address] Son Higgins Potassium [Moles/Vol] 3.5 mmol/L Normal 3.5-5.1 [facility] Comment on above: Performed By: #### U AMIC #### [facility] [address] [address] [address] Son Higgins Protein [Mass/Vol] 8.6 g/dL Critically high 6.4-8.2 [facility] Comment on above: Performed By: #### U AMIC #### [facility] [address] [address] [address] Son Higgins Sodium [Moles/Vol] 142 mmol/L Normal 136-145 [facility] Comment on above: Performed By: #### U AMIC #### [facility] [address] [place] [address] Dr. Son Higgins Urea nitrogen [Mass/Vol] 12.0 mg/dL Normal 7.0-18.0 [facility] Comment on above: Performed By: #### U AMIC #### [facility] [address] [address] [address] Son Higgins Urea nitrogen/Creatinine [Mass ratio] 8.6 mg/mg Normal [facility] Comment on above: Performed By: #### U AMIC #### [facility] [address] [place] [address] Dr. Son Higgins TSHon 12-10-2022 TSH 4.005 uIU/mL Critically high 0.358-3.740 [facility] Comment on above: Performed By: #### M G, URIC, RENAL #### [facility] [id number] Son Higgins UA RANDOM W/MICROSCOPICon BACTERIA NONE SEEN Normal NONE SEEN [facility] Comment on above: Performed By: #### U AMIC #### [facility] [address] [address] [address] Son Higgins Bilirubin Ql (U) Negative Normal NEGATIVE [facility] Comment on above: Performed By: #### U AMIC #### [facility] [address] [address] [address] Son Higgins CAST NONE SEEN Normal NONE SEEN [facility] Comment on above: Performed By: #### U AMIC #### [facility] [address] [address] [address] Son Higgins Clarity (U) CLEAR Normal CLEAR [facility] Comment on above: Performed By: #### U AMIC #### [facility] [address] [address] [address] Son Higgins Color (U) LT. YELLOW Normal YELLOW [facility] Comment on above: Performed By: #### U AMIC #### [facility] [address] [address] [address] Son Higgins Crystals LM Nom (Urine sed) NONE SEEN Normal NONE SEEN [facility] Comment on above: Performed By: #### U AMIC #### [facility] [address] [place] [address] Dr. Son Higgins Epithelial cells LM Ql (Urine sed) FEW Abnormal NONE SEEN /RARE [facility] Comment on above: Performed By: #### U AMIC #### [facility] [address] [place] [address] Dr. Son Higgins Glucose Ql (U) Negative Normal NEGATIVE [facility] Comment on above: Performed By: #### U AMIC #### [facility] [address] [place] [address] Dr. Son Higgins Hemoglobin Ql (U) Negative Normal NEGATIVE [facility] Comment on above: Performed By: #### U AMIC #### [facility] [address] [place] [address] Dr. Son Higgins Ketones Ql (U) Negative Normal NEGATIVE [facility] Comment on above: Performed By: #### U AMIC #### [facility] [address] [address] [address] Son Higgins LEUKOCYTES Negative Normal NEGATIVE [facility] Comment on above: Performed By: #### U AMIC #### [facility] [address] [address] [address] Son Higgins MUCOUS NONE SEEN Normal NONE SEEN [facility] Comment on above: Performed By: #### U AMIC #### [facility] [address] [address] [address] Son Higgins Nitrite Ql (U) Negative Normal NEGATIVE [facility] Comment on above: Performed By: #### U AMIC #### [facility] [id number] Son Higgins pH (U) 6.0 [pH] Normal 5-9 [facility] Comment on above: Performed By: #### U AMIC #### [facility] [address] [address] [address] Son Higgins RBC 0-2 Normal 0-2 [facility] Comment on above: Performed By: #### U AMIC #### [facility] [address] [place] [address] Dr. Son Higgins SPEC GRAVITY <=1.005 Abnormal 1.005-<=1.025 [facility] Comment on above: Performed By: #### U AMIC #### [facility] [address] [place] [address] Dr. Son Higgins UA PROTEIN Negative Normal NEGATIVE/ TRACE [facility] Comment on above: Performed By: #### U AMIC #### [facility] [address] [place] [address] Dr. Son Higgins Urobilinogen Qn (U) 0.2 {Lopez'U}/dL Normal 0.2 - 1. 0 [facility] Comment on above: Performed By: #### U AMIC #### [facility] [address] [place] [address] Dr. Son Higgins WBC NONE SEEN Normal NONE SEEN [facility] Comment on above: Performed By: #### U AMIC #### [facility] [address] [place] [address] Dr. Son iHggins VITAMIN B12on 12-10-2022 Cobalamin (Vitamin B12) [Mass/Vol] 448.0 pg/mL Normal 193.0-986.0 [facility] Comment on above: Performed By: #### M G, URIC, RENAL #### [facility] [address] [place], [place] [address] Dr. Son Higgins VITAMIN D 25 OHon 12-10-2022 VIT D 25-OH 48.2 ng/mL Normal [facility] Comment on above: Performed By: #### M G, URIC, RENAL #### [facility] [address] [place], [place] [address] Dr. Son Higgins VIT D RANGES SEE BELOW Normal [facility] Comment on above: Result Comment: <20 ng/mL Vit D deficient 20 - <30 ng/mL Vit D insufficient 30 - 100 ng/mL Vit D sufficient >100 ng/mL Potential Toxicity Performed By: #### M G, URIC, RENAL #### [facility] [id number] Son Higgins MG MAMM SCREEN 3D KYLEE CADon 08-13-2022 MG MAMM SCREEN 3D KYLEE CAD Patient: DAMIEN DOVER Exam Date: 08/13/2022 : 1965 Gender:F Ordering : [facility] Admission #: [id number] Family : Order #: [id number] CLICK HERE TO VIEW EXAM RADIOLOGY REPORT PROCEDURE: MAMMOGRAM SCREENING 3D BILATERAL CAD COMPARISON: MG MAMM RT DIAG W CAD, 08/29/2020. MG MAMM SCREEN 3D KYLEE CAD, 05/16/2021. INDICATIONS: Screening mammography Calculator Name NCI Breast Cancer Risk Assessment Tool 5 Year Breast Cancer Risk 0.90% Lifetime Breast Cancer Risk 6.40% Personal Breast Cancer No Personal Ovarian Cancer No Treatments None Family Cancers Father with lung cancer at age 60. LOCATION: [facility] BREAST COMPOSITION: Scattered areas fibroglandular density. FINDINGS: DIAGNOSTIC CATEGORY 2--BENIGN FINDING. NO CHANGE FROM COMPARISON. Scattered benign-appearing calcifications are present. Scattered benign-appearing lymph nodes are present. RIGHT BREAST: No significant suspicious finding. LEFT BREAST: No significant suspicious finding. Stable nodule upper outer quadrant mid breast with micro clip marker. RECOMMENDATIONS: ROUTINE MAMMOGRAM AND CLINICAL EVALUATION IN 12 MONTHS. PLEASE NOTE: A NORMAL MAMMOGRAM DOES NOT EXCLUDE THE POSSIBILITY OF BREAST CANCER. A CLINICALLY SUSPICIOUS PALPABLE LUMP SHOULD BE BIOPSIED. Dictated by: Michael Patterson MD on 08/13/2022 at 13:41 Approved by: Michael Patterson MD on 08/13/2022 at 13:43 Normal [facility] US THYROIDon 08-13-2022 US THYROID EXAMINATION: US THYR OID HISTORY: Non-toxic uninodular goiter COMPARISON: No relevant comparison available. TECHNIQUE: Sonographic images of the thyroid gland were obtained. FINDINGS: The right thyroid lobe is small in size measuring 3.4 x 1.5 x 1.0 cm. Heterogeneous echotexture with no solid nodules. The thyroid isthmus measures 3 mm, heterogeneous. The left thyroid lobe is small in size measuring 2.2 x 1.0 x 0.8 cm. Heterogeneous echotexture with no solid nodules IMPRESSION: Atrophic heterogeneous thyroid gland with no focal nodule Electronically authenticated by: MICHAEL PATTERSON Date: 2022-08-13 15:05 Normal [facility] PTH INTACTon 05-29-2022 PTH, Intact 49 pg/mL Normal 15-65 [facility] Comment on above: Performed By: #### M G, URIC, RENAL #### [facility] [address] [address] [address] Son Higgins HEMOGRAM AND PLATELon 2021 Hematocrit (Bld) [Volume fraction] 43.1 % Normal 36.0-48.0 [facility] Comment on above: Performed By: #### U AMIC #### [facility] [address] [place] [address] Dr. Son Higgins Hemoglobin (Bld) [Mass/Vol] 14.0 g/dL Normal 12.0-16.0 [facility] Comment on above: Performed By: #### U AMIC #### [facility] [address] [place] [address] Dr. Son Higgins MCH (RBC) [Entitic mass] 30.4 pg Normal 26.7-34.0 [facility] Comment on above: Performed By: #### U AMIC #### [facility] [address] [place] [address] Dr. Son Higgins MCHC (RBC) [Mass/Vol] 32.5 g/dL Normal 29.9-35.2 [facility] Comment on above: Performed By: #### U AMIC #### [facility] [address] [address] [address] Son Higgins MCV (RBC) [Entitic vol] 93.5 fL Normal 81.0-99.0 [facility] Comment on above: Performed By: #### U AMIC #### [facility] [address] [address] [address] Son Higgins PLT 218 103/ul Normal 150-450 [facility] Comment on above: Performed By: #### U AMIC #### [facility] [address] [address] [address] Son Higgins RBC 4.61 106/ul Normal 4.20-5.40 [facility] Comment on above: Performed By: #### U AMIC #### [facility] [address] [place] [address] Dr. Son Higgins WBC 9.0 103/ul Normal 4.0-11.0 [facility] Comment on above: Performed By: #### U AMIC #### [facility] [address] [place] [address] Dr. Son Higgins MAGNESIUMon 05-28-2022 Magnesium [Mass/Vol] 1.7 mg/dL Critically low 1.8-2.4 [facility] Comment on above: Performed By: #### M G, URIC, RENAL #### [facility] [address] [place] [address] Dr. Son Higgins RENAL FUNCTION PANELon 05-28 Albumin [Mass/Vol] 3.3 g/dL Critically low 3.4-5.0 [facility] Comment on above: Performed By: #### M G, URIC, RENAL #### [facility] [address] [place] [address] Dr. Son Higgins Calcium [Mass/Vol] 8.9 mg/dL Normal 8.5-10.1 [facility] Comment on above: Performed By: #### M G, URIC, RENAL #### [facility] [address] [place] [address] Dr. Son Higgins Chloride [Moles/Vol] 107 mmol/L Normal 98-107 [facility] Comment on above: Performed By: #### M G, URIC, RENAL #### [facility] [address] [place] [address] Dr. Son Higgins CO2 [Moles/Vol] 29.1 mmol/L Normal 21.0-32.0 [facility] Comment on above: Performed By: #### M G, URIC, RENAL #### [facility] [address] [place] [address] Dr. Son Higgins Creatinine [Mass/Vol] 1.36 mg/dL Critically high 0.55-1.02 [facility] Comment on above: Performed By: #### M G, URIC, RENAL #### [facility] [address] [place] [address] Dr. Son Higgins EGFR-AF NEPALESE 49 mL/min/1.73m2 Critically low >=60 [facility] Comment on above: Performed By: #### M G, URIC, RENAL #### [facility] [address] [place] [address] Dr. Son Higgins EGFR-NON AF NEPALESE 41 mL/min/1.73m2 Critically low >=60 [facility] Comment on above: Performed By: #### M G, URIC, RENAL #### [facility] [address] [place] [address] Dr. Son Higgins Glucose [Mass/Vol] 91 mg/dL Normal 74-106 [facility] Comment on above: Performed By: #### M G, URIC, RENAL #### [facility] [address] [place] [address] Dr. Son Higgins Phosphate [Mass/Vol] 3.6 mg/dL Normal 2.6-4.7 [facility] Comment on above: Performed By: #### M G, URIC, RENAL #### [facility] [address] [place] [address] Dr. Son Higgins Potassium [Moles/Vol] 3.8 mmol/L Normal 3.5-5.1 [facility] Comment on above: Performed By: #### M G, URIC, RENAL #### [facility] [address] [place] [address] Dr. Son Higgins Sodium [Moles/Vol] 143 mmol/L Normal 136-145 [facility] Comment on above: Performed By: #### M G, URIC, RENAL #### [facility] [address] [place] [address] Dr. Son Higgins Urea nitrogen [Mass/Vol] 9.0 mg/dL Normal 7.0-18.0 [facility] Comment on above: Performed By: #### M G, URIC, RENAL #### [facility] [address] [place] [address] Dr. Son Higgins UA RANDOM W/MICROSCOPICon BACTERIA NONE SEEN Normal NONE SEEN [facility] Comment on above: Performed By: #### M G, URIC, RENAL #### [facility] [address] [place] [address] Dr. Son Higgins Bilirubin Ql (U) Negative Normal NEGATIVE [facility] Comment on above: Performed By: #### M G, URIC, RENAL #### [facility] [address] [place] [address] Dr. Son Higgins CAST NONE SEEN Normal NONE SEEN [facility] Comment on above: Performed By: #### M G, URIC, RENAL #### [facility] [address] [place] [address] Dr. Son Higgins Clarity (U) CLEAR Normal CLEAR [facility] Comment on above: Performed By: #### M G, URIC, RENAL #### [facility] [address] [place] [address] Dr. Son Higgins Color (U) LT. YELLOW Normal YELLOW [facility] Comment on above: Performed By: #### M G, URIC, RENAL #### [facility] [address] [place] [address] Dr. Son Higgins Crystals LM Nom (Urine sed) NONE SEEN Normal NONE SEEN [facility] Comment on above: Performed By: #### M G, URIC, RENAL #### [facility] [address] [place] [address] Dr. Son Higgins Epithelial cells LM Ql (Urine sed) RARE Normal NONE SEEN /RARE [facility] Comment on above: Performed By: #### M G, URIC, RENAL #### [facility] [address] [address] [address] Son Higgins Glucose Ql (U) Negative Normal NEGATIVE [facility] Comment on above: Performed By: #### M G, URIC, RENAL #### [facility] [address] [address] [address] Son Higgins Hemoglobin Ql (U) Negative Normal NEGATIVE [facility] Comment on above: Performed By: #### M G, URIC, RENAL #### [facility] [address] [address] [address] Son Higgins Ketones Ql (U) Negative Normal NEGATIVE [facility] Comment on above: Performed By: #### M G, URIC, RENAL #### [facility] [address] [address] [address] Son Higgins LEUKOCYTES Negative Normal NEGATIVE [facility] Comment on above: Performed By: #### M G, URIC, RENAL #### [facility] [address] [address] [address] Son Higgins MUCOUS NONE SEEN Normal NONE SEEN [facility] Comment on above: Performed By: #### M G, URIC, RENAL #### [facility] [address] [address] [address] Son Higgins Nitrite Ql (U) Negative Normal NEGATIVE [facility] Comment on above: Performed By: #### M G, URIC, RENAL #### [facility] [address] [address] [address] Son Higgins pH (U) 6.0 [pH] Normal 5-9 [facility] Comment on above: Performed By: #### M G, URIC, RENAL #### [facility] [address] [address] [address] Son Higgins RBC NONE SEEN Abnormal 0-2 [facility] Comment on above: Performed By: #### M G, URIC, RENAL #### [facility] [address] [place] [address] Dr. Son Higgins SPEC GRAVITY <=1.005 Abnormal 1.005-<=1.025 [facility] Comment on above: Performed By: #### M G, URIC, RENAL #### [facility] [address] [address] [address] Son Higgins UA PROTEIN Negative Normal NEGATIVE/ TRACE [facility] Comment on above: Performed By: #### M G, URIC, RENAL #### [facility] [address] [place] [address] Dr. Son Higgins Urobilinogen Qn (U) 0.2 {Lopez'U}/dL Normal 0.2 - 1. 0 [facility] Comment on above: Performed By: #### M G, URIC, RENAL #### [facility] [address] [place] [address] Dr. Son Higgins WBC NONE SEEN Normal NONE SEEN [facility] Comment on above: Performed By: #### M G, URIC, RENAL #### [facility] [address] [place] [address] Dr. Son Higgisn URIC ACID SERUMon 05-28-2022 Urate [Mass/Vol] 6.7 mg/dL Critically high 2.6-6.0 [facility] Comment on above: Performed By: #### M G, URIC, RENAL #### [facility] [address] [place] [address] Dr. Son Higgins URINE T PROTEIN CREAT RATIOo n 05-28-2022 UR TOTAL PROTEIN <6.0 Normal <=12.0 [facility] Comment on above: Performed By: #### U RTPCR #### [facility] [address] [place] [address] Dr. Son Higgins URINE CREAT 9.79 mg/dL Critically low 20.00-300.00 [facility] Comment on above: Performed By: #### U RTPCR #### [facility] [address] [place] [address] Dr. Son Higgins VITAMIN D 25 OHon 05-28-2022 VIT D 25-OH 38.3 ng/mL Normal [facility] Comment on above: Performed By: #### U AMIC #### [facility] [address] [place] [address] Dr. Son Higgins VIT D RANGES SEE BELOW Normal [facility] Comment on above: Result Comment: <20 ng/mL Vit D deficient 20 - <30 ng/mL Vit D insufficient 30 - 100 ng/mL Vit D sufficient >100 ng/mL Potential Toxicity Performed By: #### U AMIC #### [facility] [address] [address] [address] Son Higgins US SINGLE QUAD RT UPPERon US SINGLE QUAD RT UPPER EXAMINATION: US SINGLE QUAD RT UPPER HISTORY: High enzyme level in serum COMPARISON: No relevant comparison available. FINDINGS: The liver is normal in size and contour. Diffuse increase in hepatic echotexture with no focal mass. Normal hepatopedal flow in the main portal vein with a velocity of 3 cm/s. The gallbladder is absent. The common bile measures 6.4 mm. Negative sonographic Longo sign. The visualized pancreas is normal in appearance The right kidney measures 9.0 x 5.2 x 4.7 cm. No solid mass or hydronephrosis. The cortex measures 1.2 cm thick IMPRESSION: Increase in hepatic echotexture suggesting hepatic steatosis Electronically authenticated by: MICHAEL PATTERSON Date: 2022-03-29 10:00 Normal [facility] LIVER PROFILEon 03-26-2022 Albumin [Mass/Vol] 3.6 g/dL Normal 3.4-5.0 [facility] Comment on above: Performed By: #### U AMIC #### [facility] [address] [place] [address] Dr. Son Higgins Albumin/Globulin [Mass ratio] 0.8 {ratio} Normal [facility] Comment on above: Performed By: #### U AMIC #### [facility] [address] [address] [address] Son Higgins ALP [Catalytic activity/Vol] 141 U/L Critically high 46-116 [facility] Comment on above: Performed By: #### U AMIC #### [facility] [address] [address] [address] Son Higgins ALT [Catalytic activity/Vol] 50 U/L Normal 14-59 [facility] Comment on above: Performed By: #### U AMIC #### [facility] [address] [address] [address] Son Higgins AST [Catalytic activity/Vol] 32 U/L Normal 15-37 [facility] Comment on above: Performed By: #### U AMIC #### [facility] [address] [place] [address] Dr. Son Higgins BILI, CONJUGATED 0.1 mg/dL Normal 0.0-0.2 [facility] Comment on above: Performed By: #### U AMIC #### [facility] [address] [place] [address] Dr. Son Higgins Bilirubin [Mass/Vol] 0.5 mg/dL Normal 0.2-1.0 [facility] Comment on above: Performed By: #### U AMIC #### [facility] [address] [place] [address] Dr. Son Higgins Globulin (S) [Mass/Vol] 4.4 g/dL Normal [facility] Comment on above: Performed By: #### U AMIC #### [facility] [address] [place] [address] Dr. Son Higgins Protein [Mass/Vol] 8.0 g/dL Normal 6.1-8.2 [facility] Comment on above: Performed By: #### U AMIC #### [facility] [address] [place] [address] Dr. Son Higgins CBC AUTO DIFFon 03-05-2022 BASO # 0.1 103/ul Normal 0.0-0.1 [facility] Comment on above: Performed By: #### C BC #### [facility] [address] [place] [address] Dr. Son Higgins Basophils/100 WBC (Bld) 0.6 % Normal 0.2-2.0 [facility] Comment on above: Performed By: #### C BC #### [facility] [address] [place] [address] Dr. Son Higgins EO # 0.3 103/ul Normal 0.0-0.7 [facility] Comment on above: Performed By: #### C BC #### [facility] [address] [place] [address] Dr. Son Higgins Eosinophils/100 WBC (Bld) 3.2 % Normal 0.9-7.0 [facility] Comment on above: Performed By: #### C BC #### [facility] [address] [place] [address] Dr. Son Higgins Erythrocyte distribution width (RBC) [Ratio] 15.9 % Critically high 11.0-15.0 [facility] Comment on above: Performed By: #### C BC #### [facility] [address] [place] [address] Dr. Son Higgins Hematocrit (Bld) [Volume fraction] 43.6 % Normal 36.0-48.0 [facility] Comment on above: Performed By: #### C BC #### [facility] [address] [place] [address] Dr. Son Higgins Hemoglobin (Bld) [Mass/Vol] 14.1 g/dL Normal 12.0-16.0 [facility] Comment on above: Performed By: #### C BC #### [facility] [address] [place] [address] Dr. Son Higgins IG # 0.04 10e3/ul Critically high 0.00-0.03 [facility] Comment on above: Performed By: #### C BC #### [facility] [address] [place] [address] Dr. Son Higgins IG % 0.4 % Normal 0.0-0.5 [facility] Comment on above: Performed By: #### C BC #### [facility] [address] [place] [address] Dr. Son Higgins LYMPH # 2.9 103/ul Normal 1.2-3.8 [facility] Comment on above: Performed By: #### C BC #### [facility] [address] [place] [address] Dr. Son Higgins Lymphocytes/100 WBC (Bld) 29.5 % Normal 20.5-60.0 [facility] Comment on above: Performed By: #### C BC #### [facility] [address] [place] [address] Dr. Son Higgins MANUAL DIFF REQ NO Normal [facility] Comment on above: Performed By: #### C BC #### [facility] [address] [place] [address] Dr. Son Higgins MCH (RBC) [Entitic mass] 30.3 pg Normal 26.7-34.0 [facility] Comment on above: Performed By: #### C BC #### [facility] [address] [place] [address] Dr. Son Higgins MCHC (RBC) [Mass/Vol] 32.3 g/dL Normal 29.9-35.2 [facility] Comment on above: Performed By: #### C BC #### [facility] [address] [place] [address] Dr. Son Higgins MCV (RBC) [Entitic vol] 93.6 fL Normal 81.0-99.0 [facility] Comment on above: Performed By: #### C BC #### [facility] [address] [place] [address] Dr. Sno Higgins MONO # 0.5 103/ul Normal 0.3-0.8 [facility] Comment on above: Performed By: #### C BC #### [facility] [address] [place] [address] Dr. Son Higgins Monocytes/100 WBC (Bld) 4.8 % Normal 1.7-12.0 [facility] Comment on above: Performed By: #### C BC #### [facility] [address] [place] [address] Dr. Son Higgins NEUT # 6.1 103/ul Normal 1.4-6.5 [facility] Comment on above: Performed By: #### C BC #### [facility] [address] [place] [address] Dr. Son Higgins Neutrophils/100 WBC (Bld) 61.5 % Normal 43.0-75.0 [facility] Comment on above: Performed By: #### C BC #### [facility] [address] [place] [address] Dr. Son Higgins Platelet mean volume (Bld) [Entitic vol] 10.3 fL Normal 9.5-13.5 [facility] Comment on above: Performed By: #### C BC #### [facility] [address] [place] [address] Dr. Son Higgins PLT 225 103/ul Normal 150-450 [facility] Comment on above: Performed By: #### C BC #### [facility] [address] [address] [address] Son Higgins RBC 4.66 106/ul Normal 4.20-5.40 [facility] Comment on above: Performed By: #### C BC #### [facility] [address] [place] [address] Dr. Son Higgins WBC 9.9 103/ul Normal 4.0-11.0 [facility] Comment on above: Performed By: #### C BC #### [facility] [address] [place] [address] Dr. Son Higgins FREE T4on 03-05-2022 Free T4 [Mass/Vol] 1.07 ng/dL Normal 0.78-2.19 [facility] Comment on above: Performed By: #### M G, URIC, RENAL #### [facility] [address] [place] [address] Dr. Son Higgins PROF 14(COMP METB)on 022 Albumin [Mass/Vol] 3.4 g/dL Normal 3.4-5.0 [facility] Comment on above: Performed By: #### M G, URIC, RENAL #### [facility] [address] [place] [address] Dr. Son Higgins Albumin/Globulin [Mass ratio] 0.8 {ratio} Normal [facility] Comment on above: Performed By: #### M G, URIC, RENAL #### [facility] [address] [place] [address] Dr. Son Higgins ALP [Catalytic activity/Vol] 134 U/L Critically high 46-116 [facility] Comment on above: Performed By: #### M G, URIC, RENAL #### [facility] [address] [address] [address] Son Higgins ALT [Catalytic activity/Vol] 35 U/L Normal 14-59 [facility] Comment on above: Performed By: #### M G, URIC, RENAL #### [facility] [address] [address] [address] Son Higgins Anion gap [Moles/Vol] 10.8 mmol/L Normal [facility] Comment on above: Performed By: #### M G, URIC, RENAL #### [facility] [address] [address] [address] Son Higgins AST [Catalytic activity/Vol] 22 U/L Normal 15-37 [facility] Comment on above: Performed By: #### M G, URIC, RENAL #### [facility] [address] [place] [address] Dr. Son Higgins Bilirubin [Mass/Vol] 0.5 mg/dL Normal 0.2-1.3 [facility] Comment on above: Performed By: #### M G, URIC, RENAL #### [facility] [address] [address] [address] Son Higgins Calcium [Mass/Vol] 9.3 mg/dL Normal 8.5-10.1 [facility] Comment on above: Performed By: #### M G, URIC, RENAL #### [facility] [address] [address] [address] Son Higgins Chloride [Moles/Vol] 105 mmol/L Normal 98-107 [facility] Comment on above: Performed By: #### M G, URIC, RENAL #### [facility] [address] [address] [address] Son Higgins CO2 [Moles/Vol] 26.9 mmol/L Normal 22.0-30.0 [facility] Comment on above: Performed By: #### M G, URIC, RENAL #### [facility] [address] [address] [address] Son Higgins Creatinine [Mass/Vol] 1.32 mg/dL Critically high 0.52-1.04 [facility] Comment on above: Performed By: #### M G, URIC, RENAL #### [facility] [address] [address] [address] Son Higgins EGFR-AF NEPALESE 51 mL/min/1.73m2 Critically low >=60 [facility] Comment on above: Performed By: #### M G, URIC, RENAL #### [facility] [address] [place] [address] Dr. Son Higgins EGFR-NON AF NEPALESE 42 mL/min/1.73m2 Critically low >=60 [facility] Comment on above: Performed By: #### M G, URIC, RENAL #### [facility] [address] [place] [address] Dr. Son Higgins Globulin (S) [Mass/Vol] 4.4 g/dL Normal [facility] Comment on above: Performed By: #### M G, URIC, RENAL #### [facility] [address] [place] [address] Dr. Son Higgins Glucose [Mass/Vol] 92 mg/dL Normal 74-106 [facility] Comment on above: Performed By: #### M G, URIC, RENAL #### [facility] [address] [place] [address] Dr. Son Higgins Potassium [Moles/Vol] 3.7 mmol/L Normal 3.4-5.0 [facility] Comment on above: Performed By: #### M G, URIC, RENAL #### [facility] [address] [place] [address] Dr. Son Higgins Protein [Mass/Vol] 7.8 g/dL Normal 6.1-8.2 [facility] Comment on above: Performed By: #### M G, URIC, RENAL #### [facility] [address] [place] [address] Dr. Son Higgins Sodium [Moles/Vol] 139 mmol/L Normal 137-145 [facility] Comment on above: Performed By: #### M G, URIC, RENAL #### [facility] [address] [place] [address] Dr. Son Higgins Urea nitrogen [Mass/Vol] 11.0 mg/dL Normal 7.0-18.0 [facility] Comment on above: Performed By: #### M Jacqui URIC, RENAL #### [facility] [address] [place] [address] Dr. Son Higgins Urea nitrogen/Creatinine [Mass ratio] 8.3 mg/mg Normal [facility] Comment on above: Performed By: #### M Jacqui URIC, RENAL #### [facility] [address] [address] [address] Son Higgins TSHon 03-05-2022 TSH 1.935 uIU/mL Normal 0.470-4.680 [facility] Comment on above: Performed By: #### M JEIMY Osman, RENAL #### [facility] [address] [place] [address] Dr. Son Higgins TSH RANGE SEE BELOW Normal [facility] Comment on above: Result Comment: <0.3 4 UIU/ml HYPERTHYROID 0.34-5.60 UIU/ml EUTHYROID >5.60 UIU/ml HYPOTHYROID Performed By: #### JEIMY Mills, RENAL #### [facility] [address] [place] [address] Dr. Son Higgins VITAMIN B12on 03-05-2022 Cobalamin (Vitamin B12) [Mass/Vol] 361.0 pg/mL Normal 239.0-931.0 [facility] Comment on above: Performed By: #### M JEIMY Osman, RENAL #### [facility] [address] [place] [address] Dr. Son Higgins VITAMIN D 25 OHon 03-05-2022 VIT D 25-OH 39.4 ng/mL Normal [facility] Comment on above: Performed By: #### M JEIMY Osman, RENAL #### [facility] [address] [place] [address] Dr. Son Higgins VIT D RANGES SEE BELOW Normal [facility] Comment on above: Result Comment: <20 ng/mL Vit D deficient 20 - <30 ng/mL Vit D insufficient 30 - 100 ng/mL Vit D sufficient >100 ng/mL Potential Toxicity Performed By: #### M G, URIC, RENAL #### [facility] [address] [address] [address] Son Higgins NM gastric emptying studyon 07-03-2021 NM gastric emptying study [facility] [place] [address] Nuclear Medicine Report Signed Patient: Damien Dover MR#: [id number] : 1965 Acct:[id number] Age/Sex: 55 / F ADM Date: 07/03/21 Loc: NM Room: Type: [facility] Attending Dr: Michael Mcguire DO Ordering Provider: Michael Mcguire Jr, DO Date of Service: 07/03/21 NM/NM gastric emptying study: Nausea Copies to: NON STAFF DO Ron Alexandra Jr, Jeffrey S DO Nuclear medicine gastric emptying study TECHNIQUE: Patient ingested oatmeal containing 1.1 mCi of technetium 99m labeled sulfur colloid. Planar imaging performed. HISTORY: Early satiety. Hiatal hernia. Heartburn. COMPARISON: None The one half emptying time of the stomach is 60 minutes. NM/NM gastric emptying study IMPRESSION: Delayed gastric emptying. Impression dictated by: Lex Velasquez M.D.07/03/2021 10:58 AM Dictation Location: [place] [address] Transcribed By: [facility] 07/03/21 1058 Dictated By: Lex Velasquez DO 07/03/21 1054 Signed By: 07/03/21 1058 Normal [facility] BASIC METABOLIC PANELon Anion gap [Moles/Vol] 14 mmol/L Normal 10 - 20 [facility] Comment on above: Performed By: #### B MP #### [facility] [address] [place] [address] Calcium [Mass/Vol] 9.7 mg/dL Normal 8.6 - 10.3 [facility] Comment on above: Performed By: #### B MP #### [facility] [address] [place] [address] Chloride [Moles/Vol] 103 mmol/L Normal 98 - 107 [facility] Comment on above: Performed By: #### B MP #### [address] [address] Creatinine [Mass/Vol] 1.20 mg/dL High 0.50 - 1.05 [facility] Comment on above: Performed By: #### B MP #### [address] [address] GFR- AM. 57 mL/min/1.73m2 Abnormal >60 [facility] Comment on above: Result Comment: CALC ULATIONS OF ESTIMATED GFR ARE PERFORMED USING THE MDRD STUDY EQUATION FOR THE IDMS-TRACEABLE CREATININE METHODS. CLIN CHEM 2007;53:766-72 Performed By: #### B MP #### [address] [address] GFR-NON AM. 47 mL/min/1.73m2 Abnormal >60 [facility] Comment on above: Performed By: #### B MP #### [address] [address] Glucose [Mass/Vol] 108 mg/dL High 74 - 99 [facility] Comment on above: Performed By: #### B MP #### [address] [address] HCO3 (Bld) [Moles/Vol] 27 mmol/L Normal 21 - 32 [facility] Comment on above: Performed By: #### B MP #### [address] [address] Potassium [Moles/Vol] 3.6 mmol/L Normal 3.5 - 5.3 [facility] Comment on above: Performed By: #### B MP #### [address] [address] Sodium [Moles/Vol] 140 mmol/L Normal 136 - 145 [facility] Comment on above: Performed By: #### B MP #### [address] [address] Urea nitrogen [Mass/Vol] 11 mg/dL Normal 6 - 23 [facility] Comment on above: Performed By: #### B MP #### [address] [place] [address] CBC AND DIFFERENTIALon 08-09 % AUTOMATED IMMATURE GRAN 0.2 % Normal 0.0 - 0.9 [facility] Comment on above: Result Comment: Perc ent differential counts (%) should be interpreted in the context of the absolute cell counts (cells/L). Performed By: #### C BCDF #### [facility] [address] [place] [address] Basophils (Bld) [#/Vol] 0.08 10*3/uL Normal 0.00 - 0.10 [facility] Comment on above: Performed By: #### C BCDF #### [facility] [address] [place] [address] Basophils/100 WBC (Bld) 0.8 % Normal 0.0 - 2.0 [facility] Comment on above: Performed By: #### C BCDF #### [facility] [address] [place] [address] Eosinophils (Bld) [#/Vol] 0.61 10*3/uL Normal 0.00 - 0.70 [facility] Comment on above: Performed By: #### C BCDF #### [address] [address] Eosinophils/100 WBC (Bld) 6.4 % Normal 0.0 - 6.0 [facility] Comment on above: Performed By: #### C BCDF #### [facility] [address] [place] [address] Lymphocytes (Bld) [#/Vol] 3.25 10*3/uL Normal 1.20 - 4.80 [facility] Comment on above: Performed By: #### C BCDF #### [address] [address] Lymphocytes/100 WBC (Bld) 33.9 % Normal 13.0 - 44.0 [facility] Comment on above: Performed By: #### C BCDF #### [facility] [address] [place] [address] Monocytes (Bld) [#/Vol] 0.62 10*3/uL Normal 0.10 - 1.00 [facility] Comment on above: Performed By: #### C BCDF #### [facility] [address] [place] [address] Monocytes/100 WBC (Bld) 6.5 % Normal 2.0 - 10.0 [facility] Comment on above: Performed By: #### C BCDF #### [facility] [address] [place] [address] Neutrophils (Bld) [#/Vol] 5.00 10*3/uL Normal 1.20 - 7.70 [facility] Comment on above: Performed By: #### C BCDF #### [facility] [address] [place] [address] Neutrophils/100 WBC (Bld) 52.2 % Normal 40.0 - 80.0 [facility] Comment on above: Performed By: #### C BCDF #### [facility] [address] [place] [address] Erythrocyte distribution width (RBC) [Ratio] 16.1 % High 11.5 - 14.5 [facility] Comment on above: Performed By: #### C BCDF #### [facility] [address] [place] [address] Hematocrit (Bld) [Volume fraction] 41.2 % Normal 36.0 - 46.0 [facility] Comment on above: Performed By: #### C BCDF #### [facility] [address] [place] [address] Hemoglobin (Bld) [Mass/Vol] 13.2 g/dL Normal 12.0 - 16.0 [facility] Comment on above: Performed By: #### C BCDF #### [facility] [address] [place] [address] MCHC (RBC) [Mass/Vol] 32.0 g/dL Normal 32.0 - 36.0 [facility] Comment on above: Performed By: #### C BCDF #### [facility] [address] [place] [address] MCV (RBC) [Entitic vol] 91 fL Normal 80 - 100 [facility] Comment on above: Performed By: #### C BCDF #### [facility] [address] [place] [address] Platelets (Bld) [#/Vol] 224 10*3/uL Normal 150 - 450 [facility] Comment on above: Performed By: #### C BCDF #### [facility] [address] [place] [address] RBC (Bld) [#/Vol] 4.52 x10E12/L Normal 4.00 - 5.20 [facility] Comment on above: Performed By: #### C BCDF #### [facility] [address] [place] [address] WBC (Bld) [#/Vol] 9.6 10*3/uL Normal 4.4 - 11.3 [facility] Comment on above: Performed By: #### C BCDF #### [facility] [address] [place] [address] DUPLEX LOWER EXTREMITY VEINS , RIGHT, UNILATERALon 08-09-2019 DUPLEX LOWER EXTREMITY VEINS, RIGHT, UNILATERAL Patient Name: DAMIEN DOVER STUDY: DUPLEX LOWER EXTREMITY VEINS, RIGHT, UNILATERAL; 08/09/2019 3:08 pm INDICATION: rle swelling and rt thigh numbness. COMPARISON: None. ACCESSION NUMBER(S): [id number] ORDERING CLINICIAN: MARLEY MONAE TECHNIQUE: Vascular ultrasound of the right lower extremity was performed. Real time compression views as well as Queen scale, color Doppler and spectral Doppler waveform analysis was performed. FINDINGS: Evaluation of the visualized portions of the right common femoral vein, proximal, mid, and distal femoral vein, and popliteal vein were performed. Evaluation of the visualized portions of the posterior tibial and peroneal veins were also performed. In addition, evaluation of the contralateral common femoral vein was performed. Limitations: None The evaluated veins demonstrate normal compressibility. There is intact venous flow demonstrating normal respiratory variability and normal augmentation of flow with calf compression. Therefore, there is no ultrasonographic evidence for deep vein thrombosis within the evaluated veins. Respiratory variation and augmentation to calf pressure was noted. There is a complex cyst in the right popliteal fossa measuring 1.9 x 1.0 x 1.1 cm most consistent with Crawford cyst. IMPRESSION: 1. No sonographic evidence for deep vein thrombosis within the evaluated veins of the right lower extremity. 2. 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 Electronically signed by: MICHELLE BHARDWAJ MD Normal [facility] PT/INRon 08-09-2019 INR Coag (PPP) [Relative time] 1.0 {INR} Normal 0.9 - 1.1 [facility] Comment on above: Performed By: #### P TINR #### [place] [address] PT Coag (PPP) [Time] 11.4 s Normal 9.7 - 12.7 [facility] Comment on above: Performed By: #### P TINR #### [place] [id number] Provider Note - ED v2on Provider Note - ED v2 Provider Note - ED v2: Attestation: Chart Review: ED NOTES ED NOTES: CHIEF COMPLAINT: 54-year-old female complains of right leg numbness HISTORY OF PRESENT ILLNESS: [Patient is a 54-year-old female complaining of right leg numbness, she was shopping at a local mall here when she felt her right leg go numb, she has a history of peripheral neuropathy due to back problems and is followed by a neurologist Dr. Donohue at [facility] in [place] she is pending epidural shots in her back, she's had previous EMG and neurology evaluation has been diagnosed with peripheral neuropathy due to back pain she's currently taking Lyrica and tramadol] REVIEW OF SYSTEMS: All other systems were reviewed and negative. Positives noted in HPI.[] PAST MEDICAL HISTORY: Nursing notes were reviewed. [Peripheral neuropathy renal insufficiency, hypertension hypothyroidism and COPD chronic low back pain] FAMILY HISTORY: No relevant family history.[] SOCIAL HISTORY: This patient is a local resident. [Lives in [facility].] MEDICATIONS: Nursing notes were reviewed. Medication list reviewed includes Lyrica tramadol Toprol Levoxyl, brio ALLERGIES: Nurses notes were reviewed. PHYSICAL EXAM: Constitutional: This is a well-developed well nourished [] in [no acute] distress, AAOx4. [] Vital signs were reviewed: [within normal limits] EYES: No scleral icterus or orbital trauma noted. No conjunctival injection. PERRLA. No nystagmus. ENT: Head and face are unremarkable and atraumatic. Mucous membranes moist. Nares are patent without copious rhinorrhea. LUNGS: CTAB, no r/r/w. CARDIOVASCULAR: RRR, no m/r/g. Nl S1/S2. ABDOMEN: Nontender, nondistended, with no obvious masses, and no peritoneal signs. MUSCULOSKELETAL: No obvious deformities. BLANTON with equal strength. Gait [observed to be normal.] Normal strength, no drift of upper or lower extremities, tender her lower back, good strength and pulses of both lower extremities, the right calf is 2 cm greater circumference than the left calf at the tibial tuberosity SKIN: Good color, with no significant rashes, pallor, cyanosis, wounds. NEURO: Normal baseline mental status. No obvious neurological deficits, normal sensation and strength bilaterally. PSYCH: Appropriate mood and affect. HISTORY OF PRESENTING ILLNESS DAMIEN is a 54 year old Female and was seen by me at 09-Aug-2019 13:32 for a chief complaint of stroke symptoms . Other complaints include: PT C/O LEFT LEG NUMBNESS- SUDDEN ONSET WHILE SHOPPING. SENT BY URGENT CARE TO R/O CVA (1). Triage Information: Most recent Vital Sign Value Date Temp (F): 97.3 08-09-2019 13:23 Temp (C): 36.3 08-09-2019 13:23 Heart Rate (beats/min): 99 08-09-2019 13:23 Respirations (breaths/min): 20 08-09-2019 13:23 SpO2 (%): 97 08-09-2019 13:23 BP Systolic (mm Hg): 111 08-09-2019 13:23 BP Diastolic (mm Hg): 72 08-09-2019 13:23 PAST MEDICAL HISTORY ATTESTATION: I have reviewed and confirmed nurse's/medic's notes for patient's medications, allergies, medical history, and surgical history ALLERGIES/INTOLERANCES: No Known Allergies HEALTH HISTORY: No documented data. OUTPATIENT MEDICATIONS: Home Medications Review Status for Reconciliation: Complete Med Status: Patient Currently Takes Medications Drug Name: Breo Ellipta 100 mcg-25 mcg/inh inhalation powder Instructions: 1 puff(s) inhaled once a day Drug Name: meloxicam 15 mg oral tablet Instructions: 1 tab(s) orally once a day Drug Name: Flexeril 10 mg oral tablet Instructions: 1 tab(s) orally once (at bedtime) Drug Name: Vitamin D3 2000 intl units oral capsule Instructions: 1 cap(s) orally once a day Drug Name: NIFEdipine 10 mg oral capsule Instructions: 1 cap(s) orally 3 times a day Drug Name: Lyrica 200 mg oral capsule Instructions: orally 2 times a day Drug Name: Nicoderm C-Q 14 mg/24 hr transdermal film, extended release Instructions: 1 patch transdermal once a day Drug Name: DULoxetine Instructions: 90 milligram(s) orally once a day Drug Name: Calcium 500+D Instructions: orally 2 times a day Drug Name: omeprazole 40 mg oral delayed release capsule Instructions: 1 cap(s) orally once a day Drug Name: atorvastatin 40 mg oral tablet Instructions: 1 tab(s) orally once a day Drug Name: levothyroxine 125 mcg (0.125 mg) oral capsule Instructions: 1 cap(s) orally once a day Drug Name: amitriptyline 150 mg oral tablet Instructions: 1 tab(s) orally once a day (at bedtime) SIGNIFICANT EVENTS: Past Medical History Description:peripheral neuropathy Description:hypothyroid Description:tricuspid valve problems Description:auto immune disease Past Surgical History Description:prolapsed bladder/rectum surgery 2018 Description:Cholecystec ivanna Description:carpal tunnel SWITCH MAKER: Is : no(1) Is : no(1) MEDICAL DECISION MAKING/ED COURSE MDM/ED COURSE: Patient's symptoms remaining constant- numbness and tingling of anterior right thigh. Patient is been notified of the normal laboratory results as well as a unremarkable venous ultrasound of her right lower extremity, she instructed to follow up with her neurologist CLINICAL IMPRESSION Diagnosis/Annotation: ED Dx Name:Peripheral neuropathy Code:G62.9 Dispostion: discharged Type: home ATTESTATION Attestation: Supervising physician on site, available for consultation, non-participatory in the evaluation of the care of this patient. Comments/Additional Findings: Attending note: After review of this patient's presentation, this is not a central nervous system stroke alert. Shins presentation is indicative of a peripheral neuropathy and the case will be evaluated accordingly. Patient essentially is complaining of right lower extremity. Neuro pathic discomfort described as numbness and tingling . CRITICAL CARE TIME Is this a critically ill patient: no Electronic Signatures: Marley Monae (PAC) (Signed 09-Aug-2019 16:01) Authored: Provider Note - ED v2 Yadiel Ballard () (Signed 10-Aug-2019 07:14) Authored: Provider Note - ED v2 Co-Signer: Provider Note - ED v2 Last Updated: 10-Aug-2019 07:14 by Yadiel Ballard () References: 1. Data Referenced From Triage - ED 09-Aug-2019 13:[address] [facility] Risk Screen - Adult Emergenc yon 08-09-2019 Risk Screen - Adult Emergency Preferred Language: Preferred Language: Preferred Language for Discussing Health Care (patient/designee)Loyd [place] Advanced Directives: Advance Directive/DNRno Family Violence Adult: Abuse Screen: Are you or have you been threatened or abused physically, emotionally, or sexually by anyoneno Learning Assessment (Patient): Learning Assessment (Patient): Patient is Able to be Assessed for Learningyes Factors Influencing Readiness to Learnacuteness of illness Factors that Impact Ability to Learnnone Devices/Methods Used to Communicatenone Learning Preferenceswritten material Cultural Considerationsnone Developmental Considerationsnone Sabianism Considerationsnone Learning Assessment (Other Learner): Learning Assessment (Other Learner): Other learner availableno Pressure Injury/TB/Substance: Pressure Injury: Do you have a coughno Admission Risk Screen: Significant IndicatorsComplete CAGE: CAGE: Is this an injured patient at a Trauma Center ([facility]/[place]/[facility]/[place]): no Electronic Signatures: Kimberly Reyes (BRYANT) (Signed 09-Aug-2019 14:09) Authored: Preferred Language, Advanced Directives, Family Violence Adult, Learning Assessment (Patient), Learning Assessment (Other Learner), Pressure Injury/TB/Substance, CAGE Last Updated: 09-Aug-2019 14:09 by Kimberly Reyes (BRYANT) Normal [facility] Triage - EDon 08-09-2019 Triage - ED Quick Triage: The patient and/or guardian verbally acknowledges placement for services into the following (when Urgent Care Service hours are operating):emergency department Are You no Have You Given In The Last 6 Weeksno Are You Currently Breastfeedingno Chart Review: CHIEF COMPLAINT DAMIEN DOVER is a Female patient with a chief complaint of stroke symptoms. Onset of the Complaint: 09-Aug-2019 13:00 Other Complaints: PT C/O RIGHT LEG NUMBNESS- SUDDEN ONSET WHILE SHOPPING. SENT BY URGENT CARE TO R/O CVA Triage Date/Time: 09-Aug-2019 13:23 Vital Signs: Temperature: 97.3F ( 36.3C) taken forehead Blood Pressure: 111/72 Mean: 93 Heart Rate: 99 Respiratory Rate: 20 Pulse Oximetry: 97% on room air, no respiratory support. Height: 5 feet 4.00 inches. 162.5 CM Weight: 238.5 pounds. Calculated 108.2 kg. (scale measurement) Calculated BMI (kg/m2): 40.975 Calculated BSA (m2) 2.21 Desi Coma Scale: Best Eye Response: (E4) spontaneous Best Motor Response: (M6) obeys commands Best Verbal Response: (V5) oriented Desi Score: 15 Cough lasting greater than 3 weeks: no Patient immunocompromised related to: N/A Travel outside of [facility]: no Allergies: no SWITCH MAKER History: hysterectomy Patient has homicidal thoughts: no ZAMZAM: 2 Symptoms Are POSITIVE For: numbness. Symptoms Are Negative For: aphasia, ataxia, confusion, diaphoresis, facial droop, headache, seizure and vomiting. Last Known Well: known Time Last Known Well Date/Time: 09-Aug-2019 Risk Screens Suicide Risk Screen In the Past Month: Have you wished you were or wished you could go to sleep and not wake up no In the Past Month: Have you had any actual thoughts of killing yourself no In Your Lifetime: Have you ever done anything, started to do anything, or prepared to do anything to end your life no Ashraf Fall Scale Screening Has the patient fallen before (or is the patient in the ED as a result of a fall) has not had a fall Does the patient have an impaired gait has impaired gait Is the patient cognitively impaired not cognitively impaired Ashraf Fall Scale History of falling (immediate or previous) no (0) Secondary Diagnosis no (0) Intravenous Therapy/ Heparin/Saline Lock no (0 Gait/Transferring normal/bedrest/wheelcha ir (0) Ambulatory Aids none/bedrest/nurse assist (0) Mental Status oriented to own ability (0) Ashraf Fall Risk Score: 0 Interventions: Low Risk 0 - 24 interventions: bed in low position with brakes locked and side rails up, call light provided to patient, complete hourly rounding on patient for safety, falls risk band applied to patient, patient oriented to surroundings, patient/family education completed, patients fall status communicated during handoff, nonslip footwear placed on patient and mode of toileting discussed with patient PAIN Pain Scale Used: JOSE R Past Medical History: Past Medical History Reviewedyes carpal tunnel: Past Surgical History, Active Cholecystectomy: Past Surgical History, Active prolapsed bladder/rectum surgery 2018: Past Surgical History, Active auto immune disease: Past Medical History, Active tricuspid valve problems: Past Medical History, Active hypothyroid: Past Medical History, Active peripheral neuropathy: Past Medical History, Active Electronic Signatures: Gurdeep Delgado (STAFF N) (Signed 09-Aug-2019 13:42) Authored: Triage, Past Medical History Lacey Gilmore (RN) (Signed 09-Aug-2019 13:50) Authored: Triage Last Updated: 09-Aug-2019 13:50 by Lacey Gilmore (RN) Normal [facility] UA MICROSCOPICon 08-09-2019 BACTERIA 1+ /HPF Abnormal [facility] Comment on above: Performed By: #### U AMIC #### [facility] [address] [place] [address] RBC (Bld) [#/Vol] NONE Normal 0-5 [facility] Comment on above: Performed By: #### U AMIC #### [facility] [address] [place] [address] SQUAMOUS EPITH. CELLS 3+ /HPF Normal [facility] Comment on above: Performed By: #### U AMIC #### [facility] [address] [place] [address] WBC (Bld) [#/Vol] 0-5 Normal 0-5 [facility] Comment on above: Performed By: #### U AMIC #### [address] [address] URINALYSIS WITH REFLEX TO CU LTUREon 08-09-2019 Appearance (U) HAZY Normal CLEAR [facility] Comment on above: Performed By: #### U ARFX #### [facility] [address] [place] [address] Bilirubin (U) [Mass/Vol] Negative Normal NEGATIVE [facility] Comment on above: Performed By: #### U ARFX #### [facility] [address] [place] [address] BLOOD Negative Normal NEGATIVE [facility] Comment on above: Performed By: #### U ARFX #### [address] [address] Color (U) YELLOW Normal STRAW,YELLOW [facility] Comment on above: Performed By: #### U ARFX #### [address] [address] Glucose [Mass/Vol] Negative Normal NEGATIVE [facility] Comment on above: Performed By: #### U ARFX #### [address] [address] Ketones Ql (U) Negative Normal NEGATIVE [facility] Comment on above: Performed By: #### U ARFX #### [address] [address] Leukocyte esterase Test strip Ql (U) TRACE Abnormal NEGATIVE [facility] Comment on above: Performed By: #### U ARFX #### [address] [address] Nitrite Ql (U) Negative Normal NEGATIVE [facility] Comment on above: Performed By: #### U ARFX #### [address] [address] pH (Bld) 7.0 Normal 5.0 - 8.0 [facility] Comment on above: Performed By: #### U ARFX #### [address] [address] Protein (U) [Mass/Vol] Negative Normal NEGATIVE [facility] Comment on above: Performed By: #### U ARFX #### [address] [address] Specific gravity (U) [Rel density] 1.004 Low 1.005 - 1.035 [facility] Comment on above: Performed By: #### U ARFX #### [facility] [address] [place] [address] Urobilinogen Qn (U) <2.0 Normal 0.0 - 1.9 [facility] Comment on above: Performed By: #### U ARFX #### [facility] [address] [place] [address] URINE CULTURE,BACTERIALon URINE CULTURE,BACTERIAL PATIENT: DAMIEN DOVER LOCATION: MAYDA OSORIO#: [id number] : 69 AGE: SEX: F ORDERED BY: MARLEY MONAE SOURCE: URINE COLLECTED: 08/09/19 14:55 ANTIBIOTICS AT MARY LOU.: RECEIVED : 08/10/19 01:11 SITE: R E S U L T S URINE CULTURE,BACTERIAL FINAL 08/10/19 21:42 NO SIGNIFICANT GROWTH. Normal [facility] Comment on above: Performed By: #### U RINC #### [facility] [address] [place] [address] Coding Summary.on 11-09-2018 Coding Summary. 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 However, the narrative phrase printed from the coding software may appear abbreviated, or result in slightly different terminology. Revised Coded By: Lynda Rocha Revised Date Saved: 11/09/2018 11:49 am [facility] Main OR Intraoperative Recor don 11-05-2018 Main OR Intraoperative Record IntraOp Document Type FTURO Summary Primary Physician: Bradnon Mahmood Jr., MD Finalized Date/Time: 11/05/18 16:12:35 Pt. Name: DAMIEN DOVER Rubina Toscano/Sex: 1965 Female Med Rec #: [id number] Physician: Brandon Mahmood Jr., MD Financial #: [id number] Pt. Type: O Room/Bed: / Admit/Disch: 11/05/18 15:16:33 - Institution: Case Times FTURO Entry 1 Patient Times In Room 11/05/18 16:02:00 Out Room 11/05/18 16:13:00 Procedure Times Start 11/05/18 16:05:00 Stop 11/05/18 16:07:00 Anesthesia Times Last Modified By: MISHA Khan RN, Lou Ann 11/05/18 16:12:20 Case Attendance FTURO Entry 1 Entry 2 Entry 3 Case Attendee Brandon Mahmood Jr., MD, RN, BRYANTORShanna [facility] R Role Performed Surgeon - Primary Keg Filler - Primary Scrub - Primary Time In 11/05/18 16:02:00 11/05/18 16:02:00 11/05/18 16:02:00 Time Out 11/05/18 16:13:00 11/05/18 16:13:00 11/05/18 16:13:00 Procedure CYSTOSCOPY LOCAL WITH CYSTOSCOPY LOCAL WITH CYSTOSCOPY LOCAL WITH URETHRAL DILATION(.) URETHRAL DILATION(.) URETHRAL DILATION(.) Comments Last Modified By: MISHA Khan RN, Lou Ann Blank RN, CNOR, Lou Ann Blank RN, Shanna CABRAL 11/05/18 16:12:21 11/05/18 16:12:21 11/05/18 16:12:21 Surgical Procedures FTURO Entry 1 Procedure Description Procedure CYSTOSCOPY LOCAL WITH Modifiers . URETHRAL DILATION Surgeon Description CYSTOSCOPY UD WITH PELVIC EXAM Primary Procedure Yes Primary Surgeon Brandon Mahmood Jr., MD Start 11/05/18 16:05:00 Stop 11/05/18 16:07:00 Anesthesia Type Local Surgical Service Urology Wound Class 2 - Clean-Contaminated Last Modified By: MISHA Khan RN, Lou Ann 11/05/18 16:07:02 General Case Data FTURO Pre-Care Text: Classifies surgical wound, implements aseptic technique, initiates traffic control Entry 1 Case Information OR URO 1 FT Case Level None Wound Class 2 - Clean-Contaminated Specialty Urology Preop Diagnosis CYSTOCELE, SUPRAPUBIC Postop Same As Preop No PAIN Postop Diagnosis CYSTOCELE, SUPRAPUBIC Outcomes Met? Yes PAIN, rectocele, urethral stricture Last Modified By: MISAH Khan RN, Lou Ann 11/05/18 16:07:39 Post-Care Text: The patient is free from signs and symptoms of infection EU IntraOp - FTURO Pre-Care Text: Implements protective measures prior to operative or invasive procedure, confirms identity before the operative or invasive procedure, verifies operative procedure, surgical site, and laterality Entry 1 EU Perioperative Protocols Procedure(s) CYSTOSCOPY LOCAL WITH Patient Identity Birthday, ID Band URETHRAL DILATION(.) Verified (select at Check, Patient least 2): Participation Consents / H and P HandP, Surgery/Procedure Operative Site N/A Verified Consent Marking Verified Surgical Site Yes Laterality Verified n/a Verified Procedure Verified Yes Correct Patient Yes Position Verified Availability Equipment, Medication Time Out Brandon Mahmood Jr., MD, Verified (If Participants MISHA Khan RN, Lou Applicable) Zuly Oshea TOW MOTOR OPERATOR, Mini R Time Out Complete 11/05/18 16:03:00 Allergies Reviewed? Yes Allergies Reviewed Self/Patient With Body Position Frog Legged Prep Area perinium Prep Agents Betadine Solution Skin. Condition Intact, Bangs, Warm, and Dry Additional None Specimens Collected Vitals - EU Blood Pressure Pulse Respirations SPO2 EBL 0 IandO - EU Total Intake 0 mL Total Output 0 mL Outcomes Met? Yes Last Modified By: MISHA Khan RN, Lou Ann 11/05/18 16:06:50 Post-Care Text: The patient is free from signs and symptoms of injury caused by extraneous objects Case Comments Finalized By: MISHA Khan RN, Lou Ann Document Signatures Signed By: MISHA Khan RN, Lou Ann 11/05/18 16:12 Normal [facility] Main OR Preoperative Recordo n 11-05-2018 Main OR Preoperative Record Holding Area Document Type FTURO Summary Primary Physician: Brandon Mahmood Jr., MD Finalized Date/Time: 11/05/18 16:12:55 Pt. Name: DAMIEN DOVER /Sex: 1965 Female Med Rec #: [id number] Physician: Brandon Mahmood Jr., MD Financial #: [id number] Pt. Type: O Room/Bed: / Admit/Disch: 11/05/18 15:16:33 - Institution: Case Times Holding FTURO Pre-Care Text: Verifies consent for planned procedure, identifies individual values and wishes concerning care, includes family members in perioperative teaching Secures patient's records' belongings, and valuables, maintains patient's dignity and privacy, and maintains patient confidentiality Entry 1 In Holding 11/05/18 15:30:00 Outcomes Met? Yes Last Modified By: Jojo Barba LPN 11/05/18 15:30:13 Post-Care Text: The patient participates in decisions affecting his or her perioperative plan of care The patient's right to privacy is maintained Surgery Checklist FTURO Entry 1 Patient Birthday, ID Band Procedure History and Physical, Identification: Check, Patient Verification: Surgical Consent, With Participation Patient NPO after Midnight: n/a Complaints of Pain: No Skin Integrity Intact, Bangs, Warm, & Dry Vitals - EU Blood Pressure 165/98 Pulse 100 bpm Respirations 18 br/min SPO2 RN Reviewed Yes Last Modified By: MISHA Khan RN, Lou Ann 11/05/18 16:05:02 Finalized By: MISHA Khan RN, Lou Ann Document Signatures Signed By: MISHA Khan RN, Lou Ann 11/05/18 16:05 Jojo Barba LPN 11/05/18 15:34 MISHA Khan RN, Lou Ann 11/05/18 16:12 Normal [facility] Operative Reporton 8 Operative Report Patient: KYLE DOVER Age: 53 years Sex: Female : 1965 Associated Diagnoses: None Author: Brandon Mahmood Jr., MD Procedure Operative Information Details: Date/ Time: 11/05/18 16:11:00. Pre-Op Dx: Urgency Incontinence - N39.41, Frequency - R35.0, Urgency - R39.15, Urethral Stricture - Female Post Trauma Urethral Stricture Female - N35.028. Post-Op Dx: Same. Anesthesia Type: Local. Procedure: Local Cystoscopy with Urethral Dilation. Complications: None. Risks/Benefits/Informed Consent: Surgical risks, benefits, details of the procedure have been explained to the patient, Full informed consent has been obtained. Intraoperative Information Prepped: Patient is brought back to the endoscopy suite, Patient is placed in modified dorso/lithotomy position, Patient prepped in the usual fashion with Betadine solution, 2% Xylocaine Jelly is placed per Urethra, After waiting several minutes the Cystoscope is introduced. The Urethra is: Tight. The Bladder is: There is a grade 2 cystocele noted. Also noted is a significant prolapse of the rectum. This was easily reducible and did not result any worsening of the cystocele. This was done with the patient in the recumbent position with the legs raised.. The ureteral orifices: Show efflux of clear urine. The Urethra was dilated to: 26 Swedish w/ sounds. Devices Implanted: None. Removal: Cystoscope is removed, The patient tolerated it well. Postoperative Information Discharge: Patient is discharged home with antibiotic coverage, Follow up arranged, The patient will follow-up in the office and 2-3 weeks. We will likely refer her to general surgery for repair of her rectocele once she is recovered from this procedure.. Normal [facility] Comment on above: Result Comment: Elec tronically Signed By: Timoteo Swann MD, Brandon Barajas\.br\Date and Time Signed: 11/05/18 16:13 EST Vital Signs Date Time Vital Sign Value Performing Clinician Facility 01-13-2024 09:44-0500 Body height 162.6 cm Zee Stevens NP Work Phone: [facility] 01-13-2024 09:44-0500 Body mass index (BMI) [Ratio] 40.51 kg/m2 Zee Stevens NP Work Phone: [facility] 01-13-2024 09:44-0500 Body temperature 97.3 [degF] Zee Stevens NP Work Phone: [facility] 01-13-2024 09:44-0500 Body weight 107.05 kg Zee Stevens NP Work Phone: [facility] 01-13-2024 09:44-0500 Diastolic blood pressure 82 mm[Hg] Zee Stevens SENIOR WAREHOUSE CLERK Work Phone: [facility] 01-13-2024 09:44-0500 Heart rate 83 /min Zee Stevens SENIOR WAREHOUSE CLERK Work Phone: [facility] 01-13-2024 09:44-0500 Respiratory rate 18 /min Zee Stevens SENIOR WAREHOUSE CLERK Work Phone: [facility] 01-13-2024 09:44-0500 SaO2% (BldA) [Mass fraction] 94 % Zee Stevens SENIOR WAREHOUSE CLERK Work Phone: [facility] 01-13-2024 09:44-0500 Systolic blood pressure 136 mm[Hg] Zee Stevens SENIOR WAREHOUSE CLERK Work Phone: [facility] 07-31-2023 09:00-0400 Body height 162.56 cm Rosanna Berny Other [facility] Other 07-31-2023 09:00-0400 Body mass index (BMI) [Ratio] 38.82 kg/m2 Rosanna Berny Other [facility] Other 07-31-2023 09:00-0400 Body temperature 96.9 [degF] Rosanna Berny Other [facility] Other 07-31-2023 09:00-0400 Body weight 102.6 kg Rosanna Berny Other [facility] Other 07-31-2023 09:00-0400 Diastolic blood pressure 80 mm[Hg] Rosanna Berny Other [facility] Other 07-31-2023 09:00-0400 Respiratory rate 18 /min Rosanna Berny Other [facility] Other 07-31-2023 09:00-0400 SaO2% (BldA) [Mass fraction] 97 % Rosanna Berny Other [facility] Other 07-31-2023 09:00-0400 Systolic blood pressure 130 mm[Hg] Rosanna Berny Other [facility] Other 11-01-2021 10:00-0500 Body height 162.56 cm Rosanna Berny Other [facility] Other 11-01-2021 10:00-0500 Body mass index (BMI) [Ratio] 39.92 kg/m2 Rosanna Berny Other [facility] Other 11-01-2021 10:00-0500 Body temperature 98.9 [degF] Rosanna Berny Other [facility] Other 11-01-2021 10:00-0500 Body weight 105.51 kg Rosanna Berny Other [facility] Other 11-01-2021 10:00-0500 Diastolic blood pressure 84 mm[Hg] Rosanna Berny Other [facility] Other 11-01-2021 10:00-0500 Respiratory rate 18 /min Rosanna Berny Other [facility] Other 11-01-2021 10:00-0500 SaO2% (BldA) [Mass fraction] 98 % Rosanna Berny Other [facility] Other 11-01-2021 10:00-0500 Systolic blood pressure 140 mm[Hg] Rosanna Sifuentes Other [facility] Other 09-12-2021 14:00-0400 Body height 162.56 cm Michael Mcguire Other [facility] Other 09-12-2021 14:00-0400 Body mass index (BMI) [Ratio] 39.65 kg/m2 Michael Maynor Other [facility] Other 09-12-2021 14:00-0400 Body weight 104.78 kg Michael Maynor Other [facility] Other 09-12-2021 14:00-0400 Diastolic blood pressure 100 mm[Hg] Michael Maynor Other [facility] Other 09-12-2021 14:00-0400 Systolic blood pressure 164 mm[Hg] Michael Maynor Other [facility] Other Encounters Encounter Date Encounter Type Care Provider Facility Start: 01-13-2024 Bamboo flowsheet Zee Stevens SENIOR WAREHOUSE CLERK Work Phone: [facility] Start: 01-13-2024 Bamboo flowsheet Zee Stevens SENIOR WAREHOUSE CLERK Work Phone: [facility] Start: 01-13-2024 End: 01-13-2024 ambulatory ZEE STEVENS Not Available Start: 01-13-2024 End: 01-13-2024 Office outpatient visit 25 minutes Zee Stevens SENIOR WAREHOUSE CLERK Work Phone: [facility] Comment on above: Primary hypertension (CMS/HCC) (Primary Dx); Tobacco user; BMI 40.0-44.9, adult (CMS/HCC); Hypothyroidism, unspecified type (CMS/HCC); Mixed hyperlipidemia (CMS/HCC); Acute non-recurrent sinusitis of other sinus; AYAH (obstructive sleep apnea); Stage 3 chronic kidney disease, unspecified whether stage 3a or 3b CKD (HCC) ([facility]); Class 3 severe obesity with serious comorbidity and body mass index (BMI) of 40.0 to 44.9 in adult, unspecified obesity type ([facility]) Start: 07-31-2023 End: 07-31-2023 ambulatory Rosanna Berny Other [facility] Other Start: 07-31-2023 Office outpatient vi sit 25 minutes Rosanna Berny [facility] Start: 02-03-2023 End: 02-04-2023 ambulatory ANODE MACHINE OPERATOR ZEE AICHHOLZ Facility:[facility] Start: 12-31-2022 End: 01-01-2023 ambulatory ROSANNA BERNY Facility:[facility] Start: 12-10-2022 End: 12-11-2022 ambulatory ANODE MACHINE OPERATOR ZEE AICHHOLZ Facility:[facility] Start: 08-13-2022 End: 08-14-2022 ambulatory ANODE MACHINE OPERATOR EZE AICHHOLZ Facility:[facility] Start: 06-27-2022 Telephone encounter Michael Mcguire [facility] Start: 06-27-2022 End: 06-28-2022 ambulatory ANODE MACHINE OPERATOR ZEE AICHHOLZ [place] [employer] [facility] Other Start: 05-28-2022 End: 05-29-2022 ambulatory ROSANNA BERNY Facility:[facility] Start: 03-29-2022 End: 03-30-2022 ambulatory ANODE MACHINE OPERATOR ZEE AICHHOLZ Facility:[facility] Start: 03-26-2022 End: 03-27-2022 ambulatory ANODE MACHINE OPERATOR ZEE AICHHOLZ Facility:[facility] Start: 03-05-2022 End: 03-06-2022 ambulatory ANODE MACHINE OPERATOR ZEE AICHHOLZ Facility:[facility] Start: 11-01-2021 End: 11-01-2021 ambulatory Rosanna Berny Other [facility] Other Start: 11-01-2021 Office outpatient vi sit 15 minutes Rosanna Berny [facility] Start: 10-05-2021 End: 10-05-2021 ambulatory Michael Mcguire Other [facility] [employer] Other Start: 10-05-2021 Telephone encounter Michael Mcguire [facility] G[facility]enter[facility] Start: 09-12-2021 Office outpatient vi sit 25 minutes Michael Weissmargarita [facility] Gastro[facility] Procedures Date Procedure Procedure Detail Performing Clinician Start: 09-24-2023 Mammography Zee lopez SENIOR WAREHOUSE CLERK Work Phone: Plan of Treatment Date Care Activity Detail Author Start: 09-26-2026 Screening for malignant neoplasm of colon [facility] Start: 09-24-2024 Screening for malignant neoplasm of breast Mammogram [facility] Start: 05-30-2024 Influenza vaccination Influenza Vacc ine (#1) [facility] Comment on above: Postponed from 08/01 (Patient Refused) Start: 02-24-2024 End: 02-24-2024 Patient encounter procedure 02/24/2024 10:00 AM EDT Office Visit [facility] [address] [place] [address] Zee Stevens, PHILIPP [address] [place] [address] [facility] Start: 01-13-2024 End: 01-13-2025 Lipid 1996 panel - Serum or Plasma Lipid panel Lab Routine Mixed hyperlipidemia (CMS/HCC) Expected: 01/13/2024 (Approximate), Expires: 01/13/2025 [facility] Comment on above: Expected: 01/13/2024 (Approximate), Expires: 01/13/2025 Start: 01-13-2024 End: 01-13-2025 Thyrotropin [Units/volume] in Serum or Plasma TSH Lab Routine Hypothyroidism, unspecified type (CMS/HCC) Expected: 01/13/2024 (Approximate), Expires: 01/13/2025 [facility] Work Phone: Comment on above: Expected: 01/13/2024 (Approximate), Expires: 01/13/2025 Start: 01-13-2024 End: 01-13-2025 Thyroxine (T4) free [Mass/volume] in Serum or Plasma T4, free Lab Routine Hypothyroidism, unspecified type (CMS/HCC) Expected: 01/13/2024 (Approximate), Expires: 01/13/2025 [facility] Comment on above: Expected: 01/13/2024 (Approximate), Expires: 01/13/2025 Start: 01-13-2024 End: 01-13-2024 Patient encounter procedure 01/13/2024 9:40 AM EST Office Visit [facility] [address] [place] [phone] Zee Stevens NP [address] [place] [phone] Arrived [facility] Comment on above: Arrived Start: 08-01-2023 Influenza vaccination Influenza Vacc ine (#1) [facility] Start: 1965 Medicare Annual Wellness (AWV) Medicare Annual Wellness (AWV) [facility] Start: 1965 Screening for malignant neoplasm of colon [facility] Immunizations Immunization Date Immunization Notes Care Provider [facility] 09-10-2022 influenza virus vacc ine, unspecified formulation Zee Stevens NP Work Phone: [facility] Payers Date Payer Category Payer Medicaid MEDICAID [facility] [id number] 2022-Present [phone] [address] [place] [address] Medicaid [id number] 2020 Medicare MEDICARE MEDICAR E PART B [id number] 2020-Present [address] [address] [place] [address] Medicare [id number] 1965 Unknown [id number] 1965 Unknown [id number] 1965 Unknown [id number] 1965 Unknown [id number] 1965 Unknown [id number] 1965 Unknown [id number] 1965 Unknown [id number] 1965 Unknown [id number] 1965 Unknown [id number] 1965 Unknown [id number] 1957 Medicaid [id number] 1957 Medicare [id number] Social History Date Type Detail Facility Unknown if ever smoked [facility] Other Start: 10-08-2023 End: 01-13-2024 Sex Assigned At [facility] Start: 06-18-2023 Tobacco smoking stat [facility] Smokes tobacco daily [facility] History of tobacco use Cigarette Smoker [facility] Start: 06-18-2023 End: 01-13-2024 Cigarettes smoked current (pack per day) - Reported 1 [facility] Start: 06-18-2023 Tobacco use and exposure Smokeless tobacco non-user [facility] Start: 01-13-2024 Alcohol intake Lifetime non-d liz (finding) [facility] Within the last year , have you been afraid of your partner or ex-partner? Patient refused [facility] Are you now , , , , never or living with a partner? Refused [facility] Do you feel stress - tense, restless, nervous, or anxious, or unable to sleep at night because your mind is troubled all the time - these days [OSQ] To some extent [facility] (I/We) worried wheth er (my/our) food would run out before (I/we) got money to buy more. DK or Refused [facility] Start: 10-16-2023 Alcohol Comment caffeine more than 4 cups per day; coffee/soda [facility] Start: 1965 Sex Assigned At Not on file [facility] History of Present illness Narrative 01-13-2024 Zee Stevens NP - 01/13/2024 11:07 AM Fe Stevens, PHILIPP - 01/13/2024 11:04 AM Fe Stevens, PHILIPP - 01/13/2024 11:04 AM Fe Stevens, PHILIPP - 01/13/2024 11:02 AM EST Note Date & Type Note Facility 01-13-2024 History of Presen t illness Narrative Associated Problem(s): Class 3 severe obesity with serious comorbidity and body mass index (BMI) of 40.0 to 44.9 in adult ([facility]) Would like to take adipex again Pt meets qualifications of OAC 4731-10-04 for weight loss. BMI>30 or >27 with comorbid conditions. Notify office with any symptoms of chest pain, dyspnea, heart palpitations, or any anxiety symptoms. F/U in 4 weeks to document weight loss. Increase physical activity as tolerated, and lower caloric intake to 1600 calories daily if no contraindications OARRS reviewed Associated Problem(s): Other acute sinusitis Nasal and sinus exam support sinusitis Will trial atb to see if this also helps SALINAS Associated Problem(s): Hypothyroidism ([facility]) Check labs with next nephrology draw Associated Problem(s): Chronic renal disease, stage III (HCC) (CMS/HCC) Continue with Nephrology Associated Problem(s): Hypertension (CMS/HCC) Stable at this time No changes in med dose Associated Problem(s): AYAH (obstructive sleep apnea) Not compliant with use of PAP I have explained that this could also cause some degree of SALINAS Images from the original note were not included. Damien Dover is a 58 y.o. female presents with chief complaint of No chief complaint on file. HPI: Would also like to start back on adipex d/t weight gain Headache This is a new problem. The current episode started 1 to 4 weeks ago. The problem occurs constantly. The problem has been waxing and waning. The pain is located in the Frontal region. Radiates to: back of head. The pain quality is not similar to prior headaches. The quality of the pain is described as throbbing. The pain is mild. Associated symptoms include sinus pressure. Pertinent negatives include no blurred vision, phonophobia, photophobia, scalp tenderness or visual change. Nothing aggravates the symptoms. Her past medical history is significant for hypertension, migraine headaches, obesity and sinus disease. Hypertension This is a chronic problem. The current episode started more than 1 year ago. The problem is unchanged. The problem is controlled. Associated symptoms include headaches. Pertinent negatives include no blurred vision. There are no associated agents to hypertension. Risk factors for coronary artery disease include dyslipidemia, obesity and sedentary lifestyle. Past treatments include beta blockers. The current treatment provides significant improvement. There are no compliance problems. Identifiable causes of hypertension include chronic renal disease. SUBJECTIVE: MEDICATIONS: Current Outpatient Medications Medication Instructions albuterol (2.5 MG/3ML) 0.083% nebulizer solution 3 mL, Nebulization, Every 6 hours PRN albuterol HFA 90 mcg/act inhaler INHALE 2 PUFFS BY MOUTH EVERY 6 HOURS NEEDED FOR WHEEZING SHORTNESS OF BREATH amitriptyline (ELAVIL) 150 mg, Oral, Nightly amoxicillin-clavulanate (Augmentin) 875-125 MG tablet 1 tablet, Oral, 2 times daily with meals amoxicillin-clavulanate (Augmentin) 875-125 MG tablet 875 mg, Oral, 2 times daily atorvastatin (LIPITOR) 80 mg, Oral, Daily celecoxib (CeleBREX) 200 MG capsule 1 capsule, Oral, Daily ciclopirox (Loprox) 0.77 % cream APPLY TO THE AFFECTED AREA(S) TWICE DAILY NEEDED cyclobenzaprine (FLEXERIL) 10 mg, Oral, Nightly DULoxetine (CYMBALTA) 60 mg, Oral, Daily ergocalciferol (VITAMIN D2) 1.25 mg, Oral, Weekly gabapentin (NEURONTIN) 600 mg, Oral, Every 8 hours levothyroxine (SYNTHROID, LEVOXYL) 137 mcg, Oral, Daily before breakfast Linzess 145 MCG capsule TAKE 1 CAPSULE BY MOUTH 30 MINUTES BEFORE the first meal OF the day ON AN EMPTY STOMACH magnesium oxide (MAG-OX) 400 mg, Oral, Daily metoprolol succinate XL (TOPROL-XL) 100 mg, Oral, Daily Multiple Vitamin (Tab-A-Flavio) tablet 1 tablet, Oral, Daily ondansetron (Zofran) 4 MG tablet Oral pantoprazole (PROTONIX) 40 mg, Oral, Daily phentermine (ADIPEX-P) 37.5 mg, Oral, Daily before breakfast spironolactone (ALDACTONE) 50 mg, Oral, Daily traMADol (Ultram) 50 MG tablet Oral ALLERGIES: No Known Allergies REVIEW OF SYMPTOMS: Review of Systems HENT: Positive for sinus pressure. Eyes: Negative for blurred vision and photophobia. Neurological: Positive for headaches. PAST MEDICAL HISTORY Past Medical History: Diagnosis Date Anxiety and depression ([facility]) 01/13/2024 Bilateral leg paresthesia Chronic renal disease, stage III (HCC) ([facility]) Constipation COPD (chronic obstructive pulmonary disease) ([facility]) 01/13/2024 COVID-19 virus infection DDD (degenerative disc disease), cervical Elevated alkaline phosphatase level Elevated blood uric acid level Environmental and seasonal allergies Fibromyalgia GERD (gastroesophageal reflux disease) HLD (hyperlipidemia) (CMS/HCC) Hypertension (CMS/HCC) Hypothyroidism (CMS/HCC) Lumbar degenerative disc disease Major depression, chronic (CMS/HCC) Migraine headache (CMS/HCC) Neuropathy, peripheral AYAH (obstructive sleep apnea) CPAP titration @10cm H2O, small air touch, ramp time 20 minutes Positive MINI (antinuclear antibody) PVD (peripheral vascular disease) (CMS/HCC) Raynauds phenomenon Spinal stenosis Spondylolisthesis Thyroid disease (CMS/HCC) Tobacco user Vitamin B12 deficiency Vitamin D deficiency Past Surgical History: Procedure Laterality Date BLADDER REPAIR 06/08/2019 Bladder and rectum repair CARPAL TUNNEL RELEASE CHOLECYSTECTOMY CYSTOSCOPY 11/15/2018 EMG 2012 TOTAL ABDOMINAL HYSTERECTOMY W/ BILATERAL SALPINGOOPHORECTOMY family history includes COPD in her mother; Cancer in her father; Diabetes in her father; Emphysema in her mother; Hypertension in her father; Lung cancer in her father; Seizures in her father; Stroke in her father and mother. OBJECTIVE: Visit Vitals BP 136/82 (BP Location: Right arm, Patient Position: Sitting, BP Cuff Size: Large adult long) Pulse 83 Temp 97.3 F (Temporal) Resp 18 Ht 5' 4 Wt 236 lb SpO2 94% BMI 40.51 kg/m Smoking Status Every Day BSA 2.2 m Physical Exam ASSESSMENT AND PLAN: No follow-ups on file. Problem List Items Addressed This Visit AYAH (obstructive sleep apnea) Not compliant with use of PAP I have explained that this could also cause some degree of SALINAS Hypertension (CMS/HCC) Stable at this time No changes in med dose Chronic renal disease, stage III (HCC) (CMS/HCC) Continue with Nephrology Hypothyroidism ([facility]) - Primary Check labs with next nephrology draw Relevant Orders TSH T4, free Tobacco user HLD (hyperlipidemia) ([facility]) Relevant Orders Lipid panel BMI 40.0-44.9, adult (CMS/HCC) Relevant Medications phentermine (Adipex-P) 37.5 MG tablet Other acute sinusitis Nasal and sinus exam support sinusitis Will trial atb to see if this also helps SALINAS Relevant Medications amoxicillin-clavulanate (Augmentin) 875-125 MG tablet Class 3 severe obesity with serious comorbidity and body mass index (BMI) of 40.0 to 44.9 in adult ([facility]) Would like to take adipex again Pt meets qualifications of OAC 4731-10-04 for weight loss. BMI>30 or >27 with comorbid conditions. Notify office with any symptoms of chest pain, dyspnea, heart palpitations, or any anxiety symptoms. F/U in 4 weeks to document weight loss. Increase physical activity as tolerated, and lower caloric intake to 1600 calories daily if no contraindications OARRS reviewed documented in this encounter [facility] Evaluation note 07-31-2023 Note Date & Type Note Facility 07-31-2023 Evaluation note Encounter Date Diagnosis Assessment Notes Jul, Holger hy kid w cr kid I-IV (ICD-10 - I12.9) Blood pressure is controlled. She appears to be euvolemic. Continue spironolactone and ToproL. I have advised her to monitor blood pressure at home and call office if stays above 140/90 mmHg. I also advised her to monitor weight and if she gains 2 pounds in 24 hours or 5 pounds in 1 week call office. Jul, Chronic kidney disease, stage III (moderate) (ICD-10 - N18.30) She has a CKD possibly due to the hypertension and AIN in the setting of NSAIDs use. Her b/l serum creatinine is 1.2-1.4 mg/dL. She has no evidence of hematuria or proteinuria so suspicion for chronic GN is low. Her renal ultrasound showed no evidence of obstructive uropathy but postvoid residual volume of 100 mL. She had postvoid residual urine volume likely due to the amitriptyline. Jul, Vitamin D deficiency (ICD-10 - E55.9) Her calcium, phosphorus and vitamin D are within the goal. Continue oral vitamin D Jul, Hyperuricemia (ICD-10 - E79.0) She has hyperuricemia due to the CKD and currently she is asymptomatic. Will monitor without any medications Jul, Hypokalemia (ICD-10 - E87.6) Continue spironolactone. Jul, Hypomagnesemia (ICD-10 - E83.42) She has hypomagnesemia due to the PPI. Continue oral magnesium [facility] Other Evaluation note 06-27-2022 Note Date & Type Note Facility 06-27-2022 Evaluation note Encounter Date Diagnosis Assessment Notes May, Constipation (ICD-10 - K59.00) [facility] Other Evaluation note 11-01-2021 Note Date & Type Note Facility 11-01-2021 Evaluation note Encounter Date Diagnosis Assessment Notes Oct, Holger hy kid w cr kid I-IV (ICD-10 - I12.9) Blood pressure is uncontrolled. She appears to be hypervolemic. Continue spironolactone and ToproL. I have refilled the prescription for spironolactone. I will advise her to take spironolactone daily for blood pressure and leg edema. Oct, Chronic kidney disease, stage III (moderate) (ICD-10 - N18.30) She has a CKD possibly due to the hypertension and AIN in the setting of NSAIDs use. Her b/l serum creatinine is 1.2-1.4 mg/dL. She has no evidence of hematuria or proteinuria so suspicion for chronic GN is low. Her renal ultrasound showed no evidence of obstructive uropathy but postvoid residual volume of 100 mL. She had postvoid residual urine volume likely due to the amitriptyline. Oct, Vitamin D deficiency (ICD-10 - E55.9) She has a vitamin D deficiency but her calcium is within normal limit. Continue oral vitamin D supplement Oct, Hyperuricemia (ICD-10 - E79.0) She has hyperuricemia due to the CKD and currently she is asymptomatic. Will monitor without any medications Oct, Hypokalemia (ICD-10 - E87.6) Continue spironolactone. [facility] Other Evaluation note 09-12-2021 Note Date & Type Note Facility 09-12-2021 Evaluation note Encounter Date Diagnosis Assessment Notes Aug, Irritable bowel syndrome with constipation (ICD-10 - K58.1) PT TO REPORT PROGRESS Aug, Gastroparesis (ICD-10 - K31.84) Aug, Upper abdominal pain (ICD-10 - R10.10) [facility] Other Evaluation note Note Date & Type Note Facility Evaluation note No Information [employer] Other Evaluation note Note Date & Type Note Facility Evaluation note Diagnosis Primary hypertension (CMS/HCC)- Primary Unspecified essential hypertension Tobacco user Tobacco use disorder BMI 40.0-44.9, adult (CMS/HCC) Hypothyroidism, unspecified type (CMS/HCC) Mixed hyperlipidemia (CMS/HCC) Mixed hyperlipidemia Acute non-recurrent sinusitis of other sinus AYAH (obstructive sleep apnea) Obstructive sleep apnea (adult) (pediatric) Stage 3 chronic kidney disease, unspecified whether stage 3a or 3b CKD (HCC) (CMS/HCC) Class 3 severe obesity with serious comorbidity and body mass index (BMI) of 40.0 to 44.9 in adult, unspecified obesity type (CMS/HCC) documented in this encounter [facility] History general Narrative - Reported Note Date & Type Note Facility History general Narrative - Reported Type Medical History Hypothyroidism Medical History peripheral neuropath y sensory neuropathy Medical History fibromyalgia Medical History rheumatic heart disease Medical History COPD Medical History anxiety Medical History chronic depression Medical History kidney issues Medical History low back nerve issues Medical History gastro issues Surgical History hysterectomy Surgical History ganglion cyst Surgical History carpal tunnel release Surgical History cholecystectomy Surgical History ORAL SURGERY 12/13/2019 Surgical History RECTAL PROLAPSE AND BLADDER SUSPENSION 05/2019 Hospitalization History see above [facility] Other History general Narrative - Reported Note Date & Type Note Facility History general Narrative - Reported Type Medical History Hypothyroidism Medical History peripheral neuropath y sensory neuropathy Medical History fibromyalgia Medical History rheumatic heart disease Medical History COPD Medical History anxiety Medical History chronic depression Medical History kidney issues Medical History low back nerve issues Medical History gastro issues Medical History FATTY LIVER Surgical History hysterectomy Surgical History ganglion cyst Surgical History carpal tunnel release Surgical History cholecystectomy Surgical History ORAL SURGERY 12/13/2019 Surgical History RECTAL PROLAPSE AND BLADDER SUSPENSION 05/2019 Hospitalization History see above [facility] Other History general Narrative - Reported Note Date & Type Note Facility History general Narrative - Reported Type Medical History Hypothyroidism Medical History peripheral neuropath y sensory neuropathy Medical History fibromyalgia Medical History rheumatic heart disease Medical History COPD Medical History anxiety Medical History chronic depression Medical History kidney issues Medical History low back nerve issues Medical History gastro issues Medical History FATTY LIVER Surgical History hysterectomy Surgical History ganglion cyst Surgical History carpal tunnel release Surgical History cholecystectomy Surgical History ORAL SURGERY 12/13/2019 Surgical History RECTAL PROLAPSE AND BLADDER SUSPENSION 05/2019 Surgical History INJECTIONS IN LEFT HIP Hospitalization History see above [facility] Other Summary Purpose Family History No Family History Records FoundNo Family History Records FoundNo Family History Records FoundNo Family History Records FoundNo Family History Records Found Advance Directives No Advanced Directives Records FoundNo Advanced Directives Records FoundNo Advanced Directives Records FoundNo Advanced Directives Records FoundNo Advanced Directives Records Found Additional Source Comments INFORMATION SOURCE (unrecogn ized section and content) DATE CREATED AUTHOR 08/12/2019 [facility] DATE CREATED AUTHOR AUTHOR'S ORGANIZ ATION 09/16/2019 [facility] DATE CREATED AUTHOR AUTHOR'S ORGANIZ ATION 01/15/2022 [facility] DATE CREATED AUTHOR AUTHOR'S ORGANIZ ATION 02/05/2023 [facility] DATE CREATED AUTHOR AUTHOR'S ORGANIZ ATION 01/14/2024 [facility] EPIC REASON FOR VISIT (unrecogniz ed section and content) PT HERE FOR 4-6 WEEK FOLLOW UP SHE WAS TO INCREASE LINZESS TO 145 MCG AND START ZOFRAN AND CARAFATE AT LAST OFFICE VISITClinical Acute IllnessCKDRefillsCKD and HTN Care Teams (unrecognized sec tion and content) 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 This clinical summary was aggregated from multiple sources. Caution should be exercised in using it in the provision of clinical care. This summary normalizes information from multiple sources, and as a consequence, information in this document may materially change the coding, format and clinical context of patient data. In addition, data may be omitted in some cases. CLINICAL DECISIONS SHOULD BE BASED ON THE PRIMARY CLINICAL RECORDS. [facility]. provides no warranty or guarantee of the accuracy or completeness of information in this document.
[2024-02-17 08:59] LABS: Hematocrit 46.7 % (36.0-48.0); Hemoglobin 14.9 g/dL (12.0-16.0); Mean Corpuscular HGB Conc 31.9 g/dL (29.9-35.2); Mean Corpuscular Hemoglobin 30.8 pg (26.7-34.0); Mean Corpuscular Volume 96.7 fL (81.0-99.0); Mean Platelet Volume 10.5 fL (9.5-13.5); Platelet Count 314 10^3/uL (150-450); Red Blood Count 4.83 10^6/uL (4.20-5.40); Red Cell Distribution Width 14.8 % (11.0-15.0); White Blood Count 11.4 10^3/uL (4.0-11.0)
[2024-02-17 09:00] LABS: Bilirubin Urine NEGATIVE (NEGATIVE); Blood Urine NEGATIVE (NEGATIVE); Clarity Urine CLEAR (CLEAR); Color Urine LT. YELLOW (YELLOW); Glucose Urine UA NEGATIVE (NEGATIVE); Ketones Urine NEGATIVE (NEGATIVE); Leukocyte Esterase Urine NEGATIVE (NEGATIVE); Nitrite Urine NEGATIVE (NEGATIVE); Protein Urine NEGATIVE (NEG/TRACE); Specific Gravity Urine <=1.005 (1.005-1.025); Urobilinogen Urine 0.2 EU/dL (0.2-1.0); pH Urine 5.5 (5.0-9.0)
[2024-02-17 09:03] LABS: Creatinine Urine Random 15.47 mg/dL (20.00-300.00)
[2024-02-17 09:06] LABS: Protein Creatinine Ratio Urine 0.39; Total Protein Urine Random <6.0 mg/dL (<=11.9)
[2024-02-17 09:13] LABS: Bacteria Urine NONE SEEN #/HPF (NONE SEEN); Mucus Urine NONE SEEN (NONE SEEN); RBC Urine NONE SEEN #/HPF (0-2); Squamous Epithelial Cell Urine FEW #/LPF (NONE/RARE); WBC Urine NONE SEEN #/HPF (NONE SEEN)
[2024-02-17 11:24] LABS: Albumin Level 3.7 g/dL (3.4-5.0); Anion Gap 16.6; BUN Creatinine Ratio 9.8; Calcium 9.9 mg/dL (8.5-10.1); Carbon Dioxide 26.9 mmol/L (21.0-32.0); Chloride 100 mmol/L (98-107); Estimated GFR (African America 50 (>=60); Estimated GFR (Non-African Ame 42 (>=60); Glucose 77 mg/dL (74-106); Magnesium 2.1 mg/dL (1.8-2.4); Phosphorus 4.3 mg/dL (2.6-4.7); Potassium 3.5 mmol/L (3.5-5.1); Sodium 140 mmol/L (136-145); Uric Acid 6.9 mg/dL (2.6-6.0)
[2024-02-18 13:08] LABS: PTH, Intact 35 pg/mL (15-65)
== END 2024-02-17 08:22 | disposition home or self-care (01) ==
LOC: LAB 08:23
PROVIDERS: PCP Nurse Practitioner; Visit Provider Internal Medicine
DX: E03.9 Hypothyroidism, unspecified (principal); E78.2 Mixed hyperlipidemia; N18.30 Chronic kidney disease, stage 3 unspecified; I12.9 Hypertensive chronic kidney disease with stage 1 through stage 4 chronic kidney disease, or unspecified chronic kidney disease; E55.9 Vitamin D deficiency, unspecified; E79.0 Hyperuricemia without signs of inflammatory arthritis and tophaceous disease; E87.6 Hypokalemia; E83.42 Hypomagnesemia
CPT/HCPCS: 36415; 80061; 80069; 81001; 82306; 82570; 83735; 83970; 84156; 84439; 84443; 84550; 85027

== ENCOUNTER 2024-02-17 08:27 | Outpatient (OUT) | payer MEDICARE, MEDICAID, SELFPAY ==
--- OUTSIDE RECORDS SUMMARY | 2024-02-17 08:40 | XMS_ITS | CCD ---
Author Organization [facility] Care Team Providers Care Entry Level Installation Technician Name Role Phone Michael Mcguire Unavailable Berny, Rosanna Unavailable AICHHOLZ, NEUROCRITICAL CARE PHYSICIAN ZEE Primary Care Unavailable AICHHOLZ, NEUROCRITICAL CARE PHYSICIAN ZEE Admitting Unavailable AICHHOLZ, NEUROCRITICAL CARE PHYSICIAN ZEE Consulting Unavailable AICHHOLZ, NEUROCRITICAL CARE PHYSICIAN ZEE Attending Unavailable AICHHOLZ, NEUROCRITICAL CARE PHYSICIAN ZEE Attending Unavailable AICHHOLZ, NEUROCRITICAL CARE PHYSICIAN ZEE Consulting Unavailable AICHHOLZ, NEUROCRITICAL CARE PHYSICIAN ZEE Primary Care Unavailable AICHHOLZ, NEUROCRITICAL CARE PHYSICIAN ZEE Admitting Unavailable BERNY, ROSANNA Consulting Unavailable BERNY, ROSANNA Attending Unavailable BERNY, ROSANNA Admitting Unavailable FAWWAD, HARVEY H Primary Care Unavailable AICHHOLZ, NEUROCRITICAL CARE PHYSICIAN ZEE Attending Unavailable AICHHOLZ, NEUROCRITICAL CARE PHYSICIAN ZEE Consulting Unavailable AICHHOLZ, NEUROCRITICAL CARE PHYSICIAN ZEE Primary Care Unavailable AICHHOLZ, NEUROCRITICAL CARE PHYSICIAN ZEE Admitting Unavailable AICHHOLZ, NEUROCRITICAL CARE PHYSICIAN ZEE Attending Unavailable AICHHOLZ, NEUROCRITICAL CARE PHYSICIAN ZEE Primary Care Unavailable AICHHOLZ, NEUROCRITICAL CARE PHYSICIAN ZEE Admitting Unavailable DR MICHAEL PATTERSON V Consulting Unavailable AICHHOLZ, NEUROCRITICAL CARE PHYSICIAN ZEE Consulting Unavailable AICHHOLZ, NEUROCRITICAL CARE PHYSICIAN ZEE Attending Unavailable AICHHOLZ, NEUROCRITICAL CARE PHYSICIAN ZEE Primary Care Unavailable AICHHOLZ, NEUROCRITICAL CARE PHYSICIAN ZEE Consulting Unavailable AICHHOLZ, NEUROCRITICAL CARE PHYSICIAN ZEE Admitting Unavailable BERNY, ROSANNA Admitting Unavailable BERNY, ROSANNA Consulting Unavailable BERNY, ROSANNA Attending Unavailable AICHHOLZ, NEUROCRITICAL CARE PHYSICIAN ZEE Primary Care Unavailable AICHHOLZ, NEUROCRITICAL CARE PHYSICIAN ZEE Attending Unavailable AICHHOLZ, NEUROCRITICAL CARE PHYSICIAN ZEE Primary Care Unavailable DR MICHAEL PATTERSON V Consulting Unavailable AICHHOLZ, NEUROCRITICAL CARE PHYSICIAN ZEE Admitting Unavailable AICHHOLZ, NEUROCRITICAL CARE PHYSICIAN ZEE Consulting Unavailable AICHHOLZ, NEUROCRITICAL CARE PHYSICIAN ZEE Attending Unavailable PRAVIN STEVENS Primary Care Unavailable PRAVIN STEVENS Consulting Unavailable PRAVIN STEVENS Admitting Unavailable Ry Tillman MD Primary Care Provider ZEE STEVENS Attending Unavailable Allergies Allergy Classification Reported Allergen(s) Allergy Type Date of Onset Reaction(s) Facility (1 source) Codeine Drug Allergy 06-18-2023 [facility] Work Phone: Medications Current Medications Medication Drug Class(es) Dates Sig (Normalized) Sig (Original) [id number] 200 actuat albuterol 0.09 mg/actuat metered dose [...] mouth every week Vitamin D3 1.25 MG (53695 UT) 1 capsule Orally once a week [...] every week ergocalciferol (Vitamin D2) 1.25 MG (84109 UT) capsule Indications: Vitamin D deficiency, unspecified [...] Free T4 [Mass/Vol] 1.10 ng/dL Normal 0.76-1.46 [facility] Comment on above: Performed By: #### U AMIC #### [facility] [address] [address] [address] Son Higgins TSHon 02-03-2023 TSH 1.871 uIU/mL Normal 0.358-3.740 [facility] Comment on above: Performed By: #### U AMIC #### [facility] [address], [place] [address] Dr. Son Higgins PTH INTACTon 01-01-2023 PTH, Intact 18 pg/mL Normal 15-65 [facility] Comment on above: Performed By: #### P THINT #### [facility] [address] [place] [address] Dr. Son Higgins HEMOGRAM AND PLATELon 2022 Hematocrit (Bld) [Volume fraction] 47.4 % Normal 36.0-48.0 [facility] Comment on above: Performed By: #### U AMIC #### [facility] [address] [place] [address] Dr. Son Higgins Hemoglobin (Bld) [Mass/Vol] 15.5 g/dL Normal 12.0-16.0 [facility] Comment on above: Performed By: #### U AMIC #### [facility] [address] [place] [address] Dr. Son Higgins MCH (RBC) [Entitic mass] 30.3 pg Normal 26.7-34.0 [facility] Comment on above: Performed By: #### U AMIC #### [facility] [address] [place] [address] Dr. Son Higgins MCHC (RBC) [Mass/Vol] 32.7 g/dL Normal 29.9-35.2 [facility] Comment on above: Performed By: #### U AMIC #### [facility] [address] [place] [address] Dr. Son Higgins MCV (RBC) [Entitic vol] 92.6 fL Normal 81.0-99.0 [facility] Comment on above: Performed By: #### U AMIC #### [facility] [address] [place] [address] Dr. Son Higgins PLT 271 103/ul Normal 150-450 [facility] Comment on above: Performed By: #### U AMIC #### [facility] [address] [place] [address] Dr. Son Higgins RBC 5.12 106/ul Normal 4.20-5.40 [facility] Comment on above: Performed By: #### U AMIC #### [facility] [address] [place] [address] Dr. Son Higgins WBC 11.5 103/ul Critically high 4.0-11.0 [facility] Comment on above: Performed By: #### U AMIC #### [facility] [address] [address] [address] Son Higgins MAGNESIUMon 12-31-2022 Magnesium [Mass/Vol] 1.5 mg/dL Critically low 1.8-2.4 [facility] Comment on above: Performed By: #### M G, URIC, RENAL #### [facility] [address] [address] [address] Son Higgins RENAL FUNCTION PANELon 12-31 Albumin [Mass/Vol] 3.6 g/dL Normal 3.4-5.0 [facility] Comment on above: Performed By: #### M G, URIC, RENAL #### [facility] [address] [place] [address] Dr. Son Higgins Calcium [Mass/Vol] 9.5 mg/dL Normal 8.5-10.1 [facility] Comment on above: Performed By: #### M G, URIC, RENAL #### [facility] [address] [place] [address] Dr. Son Higgins Chloride [Moles/Vol] 100 mmol/L Normal 98-107 [facility] Comment on above: Performed By: #### M G, URIC, RENAL #### [facility] [address] [place] [address] Dr. Son Higgins CO2 [Moles/Vol] 29.3 mmol/L Normal 21.0-32.0 [facility] Comment on above: Performed By: #### M G, URIC, RENAL #### [facility] [address] [place] [address] Dr. Son Higgins Creatinine [Mass/Vol] 1.32 mg/dL Critically high 0.55-1.02 [facility] Comment on above: Performed By: #### M G, URIC, RENAL #### [facility] [address] [place] [address] Dr. Son Higgins EGFR-AF MALAYSIAN 51 mL/min/1.73m2 Critically low >=60 [facility] Comment on above: Performed By: #### M G, URIC, RENAL #### [facility] [address] [address] [address] Son Higgins EGFR-NON AF MALAYSIAN 42 mL/min/1.73m2 Critically low >=60 [facility] Comment on above: Performed By: #### M G, URIC, RENAL #### [facility] [address] [address] [address] Son Higgins Glucose [Mass/Vol] 110 mg/dL Critically high 74-106 [facility] [place] [facility] Comment on above: Performed By: #### M G, URIC, RENAL #### [facility] [address] [address] [address] Son Higgins Phosphate [Mass/Vol] 4.3 mg/dL Normal 2.6-4.7 [facility] Comment on above: Performed By: #### M G, URIC, RENAL #### [facility] [address] [address] [address] Son Higgins Potassium [Moles/Vol] 3.5 mmol/L Normal 3.5-5.1 [facility] Comment on above: Performed By: #### M G, URIC, RENAL #### [facility] [address] [address] [address] Son Higgins Sodium [Moles/Vol] 140 mmol/L Normal 136-145 [facility] Comment on above: Performed By: #### M G, URIC, RENAL #### [facility] [address] [address] [address] Son Higgins Urea nitrogen [Mass/Vol] 12.0 mg/dL Normal 7.0-18.0 [facility] Comment on above: Performed By: #### M G, URIC, RENAL #### [facility] [address] [address] [address] Son Higgins UA RANDOM W/MICROSCOPICon BACTERIA NONE SEEN Normal NONE SEEN [facility] Comment on above: Performed By: #### U AMIC #### [facility] [address] [address] [address] Son Higgins Bilirubin Ql (U) Negative Normal NEGATIVE [facility] Comment on above: Performed By: #### U AMIC #### [facility] [address] [address] [address] Son Higgins CAST NONE SEEN Normal NONE SEEN [facility] Comment on above: Performed By: #### U AMIC #### [facility] [address] [address] [address] Son Higgins Clarity (U) CLEAR Normal CLEAR [facility] Comment on above: Performed By: #### U AMIC #### [facility] [address] [address] [address] Son Higgins Color (U) LT. YELLOW Normal YELLOW [facility] Comment on above: Performed By: #### U AMIC #### [facility] [address] [address] [address] Son Higgins Crystals LM Nom (Urine sed) NONE SEEN Normal NONE SEEN [facility] Comment on above: Performed By: #### U AMIC #### [facility] [address] [address] [address] Son Higgins Epithelial cells LM Ql (Urine sed) NONE SEEN Normal NONE SEEN /RARE [facility] Comment on above: Performed By: #### U AMIC #### [facility] [address] [place] [address] Dr. Son Higgins Glucose Ql (U) Negative Normal NEGATIVE [facility] Comment on above: Performed By: #### U AMIC #### [facility] [address] [address] [address] Son Higgins Hemoglobin Ql (U) Negative Normal NEGATIVE [facility] Comment on above: Performed By: #### U AMIC #### [facility] [address] [address] [address] Son Higgins Ketones Ql (U) Negative Normal NEGATIVE [facility] Comment on above: Performed By: #### U AMIC #### [facility] [address] [address] [address] Son Higgins LEUKOCYTES Negative Normal NEGATIVE [facility] Comment on above: Performed By: #### U AMIC #### [facility] [address] [address] [address] Son Higgins MUCOUS NONE SEEN Normal NONE SEEN [facility] Comment on above: Performed By: #### U AMIC #### [facility] [address] [address] [address] Son Higgins Nitrite Ql (U) Negative Normal NEGATIVE [facility] Comment on above: Performed By: #### U AMIC #### [facility] [address] [place] [address] Dr. Son Higgins pH (U) 5.5 [pH] Normal 5-9 [facility] Comment on above: Performed By: #### U AMIC #### [facility] [address] [place] [address] Dr. Son Higgins RBC 0-2 Normal 0-2 [facility] Comment on above: Performed By: #### U AMIC #### [facility] [address] [place] [address] Dr. Son Higgins SPEC GRAVITY <=1.005 Abnormal 1.005-<=1.025 [facility] Comment on above: Performed By: #### U AMIC #### [facility] [address] [address] [address] Son Higgins UA PROTEIN Negative Normal NEGATIVE/ TRACE [facility] Comment on above: Performed By: #### U AMIC #### [facility] [address] [place] [address] Dr. Son Higgins Urobilinogen Qn (U) 0.2 {Lopez'U}/dL Normal 0.2 - 1. 0 [facility] Comment on above: Performed By: #### U AMIC #### [facility] [address] [place] [address] Dr. Son Higgins WBC NONE SEEN Normal NONE SEEN [facility] Comment on above: Performed By: #### U AMIC #### [facility] [address] [place] [address] Dr. Son Higgins URIC ACID SERUMon 12-31-2022 Urate [Mass/Vol] 6.8 mg/dL Critically high 2.6-6.0 [facility] Comment on above: Performed By: #### M G, URIC, RENAL #### [facility] [address] [place] [address] Dr. Son Higgins URINE T PROTEIN CREAT RATIOo n 12-31-2022 UR PROT CREAT RAT 0.37 Normal [facility] Comment on above: Result Comment: Prev iously reported as: 0.30 On 12/31/2022 09:37 By [email or web address] Performed By: #### M G, URIC, RENAL #### [facility] [address] [place] [address] Dr. Son Higgins UR TOTAL PROTEIN <6.0 Normal <=12.0 [facility] Comment on above: Result Comment: Prev iously reported as: 4.8 On 12/31/2022 09:37 By [email or web address] Performed By: #### M G, URIC, RENAL #### [facility] [address] [place] [address] Dr. Son Higgins URINE CREAT 16.27 mg/dL Critically low 20.00-300.00 [facility] Comment on above: Performed By: #### M G, URIC, RENAL #### [facility] [address] [place] [address] Dr. Son Higgins VITAMIN D 25 OHon 12-31-2022 VIT D 25-OH 45.7 ng/mL Normal [facility] Comment on above: Performed By: #### V ITAD #### [facility] [address] [place] [address] Dr. Son Higgins VIT D RANGES SEE BELOW Normal [facility] Comment on above: Result Comment: <20 ng/mL Vit D deficient 20 - <30 ng/mL Vit D insufficient 30 - 100 ng/mL Vit D sufficient >100 ng/mL Potential Toxicity Performed By: #### V ITAD #### [facility] [address] [place] [address] Dr. Son Higgins CBC AUTO DIFFon 12-10-2022 BASO # 0.1 103/ul Normal 0.0-0.1 [facility] Comment on above: Performed By: #### C BC #### [facility] [address] [address] [address] Son Higgins Basophils/100 WBC (Bld) 0.9 % Normal 0.2-2.0 [facility] Comment on above: Performed By: #### C BC #### [facility] [address] [place] [address] Dr. Son Higgins EO # 0.4 103/ul Normal 0.0-0.7 [facility] Comment on above: Performed By: #### C BC #### [facility] [address] [place] [address] Dr. Son Higgins Eosinophils/100 WBC (Bld) 3.1 % Normal 0.9-7.0 [facility] Comment on above: Performed By: #### C BC #### [facility] [address] [place] [address] Dr. Son Higgins Erythrocyte distribution width (RBC) [Ratio] 15.0 % Normal 11.0-15.0 [facility] Comment on above: Performed By: #### C BC #### [facility] [address] [place] [address] Dr. Son Higgins Hematocrit (Bld) [Volume fraction] 44.5 % Normal 36.0-48.0 [facility] Comment on above: Performed By: #### C BC #### [facility] [address] [place] [address] Dr. Son Higgins Hemoglobin (Bld) [Mass/Vol] 15.0 g/dL Normal 12.0-16.0 [facility] Comment on above: Performed By: #### C BC #### [facility] [address] [place] [address] Dr. Son Higgins IG # 0.07 10e3/ul Critically high 0.00-0.03 [facility] Comment on above: Performed By: #### C BC #### [facility] [address] [place] [address] Dr. Son Higgins IG % 0.6 % Critically high 0.0-0.5 [facility] Comment on above: Performed By: #### C BC #### [facility] [address] [place] [address] Dr. Son Higgins LYMPH # 3.7 103/ul Normal 1.2-3.8 [facility] Comment on above: Performed By: #### C BC #### [facility] [address] [place] [address] Dr. Son Higgins Lymphocytes/100 WBC (Bld) 31.8 % Normal 20.5-60.0 [facility] Comment on above: Performed By: #### C BC #### [facility] [address] [place] [address] Dr. Son Higgins MANUAL DIFF REQ NO Normal [facility] Comment on above: Performed By: #### C BC #### [facility] [address] [place] [address] Dr. Son Higgins MCH (RBC) [Entitic mass] 30.4 pg Normal 26.7-34.0 [facility] Comment on above: Performed By: #### C BC #### [facility] [address] [place] [address] Dr. Son Higgins MCHC (RBC) [Mass/Vol] 33.7 g/dL Normal 29.9-35.2 [facility] Comment on above: Performed By: #### C BC #### [facility] [address] [place] [address] Dr. Son Higgins MCV (RBC) [Entitic vol] 90.3 fL Normal 81.0-99.0 [facility] Comment on above: Performed By: #### C BC #### [facility] [address] [place] [address] Dr. Son Higgins MONO # 0.6 103/ul Normal 0.3-0.8 [facility] Comment on above: Performed By: #### C BC #### [facility] [address] [place] [address] Dr. Son Higgins Monocytes/100 WBC (Bld) 5.1 % Normal 1.7-12.0 [facility] Comment on above: Performed By: #### C BC #### [facility] [address] [place] [address] Dr. Son Higgins NEUT # 6.8 103/ul Critically high 1.4-6.5 [facility] Comment on above: Performed By: #### C BC #### [facility] [address] [address] [address] Son Higgins Neutrophils/100 WBC (Bld) 58.5 % Normal 43.0-75.0 [facility] Comment on above: Performed By: #### C BC #### [facility] [address] [address] [address] Son Higgins Platelet mean volume (Bld) [Entitic vol] 10.5 fL Normal 9.5-13.5 [facility] Comment on above: Performed By: #### C BC #### [facility] [address] [place] [address] Dr. Son Higgins PLT 300 103/ul Normal 150-450 [facility] Comment on above: Performed By: #### C BC #### [facility] [address] [address] [address] Son Higgins RBC 4.93 106/ul Normal 4.20-5.40 [facility] Comment on above: Performed By: #### C BC #### [facility] [address] [address] [address] Son Higgins WBC 11.7 103/ul Critically high 4.0-11.0 [facility] Comment on above: Performed By: #### C BC #### [facility] [address] [place] [address] Dr. Son Higgins FREE T4on 12-10-2022 Free T4 [Mass/Vol] 0.99 ng/dL Normal 0.76-1.46 [facility] Comment on above: Performed By: #### M G, URIC, RENAL #### [facility] [address] [place] [address] Dr. Son Higgins LIPID PROFILEon 12-10-2022 CHOL-HDL RATIO NORM SEE BELOW Normal [facility] Comment on above: Result Comment: 3.3 - 4.4 LOW RISK 4.4 - 7.1 AVERAGE RISK 7.1 - 11.0 MODERATE RISK >11.0 HIGH RISK Performed By: #### M G, URIC, RENAL #### [facility] [address] [address] [address] Son Higgins Cholesterol [Mass/Vol] 160 mg/dL Normal <=200 [facility] Comment on above: Performed By: #### M G, URIC, RENAL #### [facility] [address] [address] [address] Son Higgins Cholesterol in HDL [Mass/Vol] 37 mg/dL Critically low 40-60 [facility] Comment on above: Performed By: #### M G, URIC, RENAL #### [facility] [address] [address] [address] Son Higgins Cholesterol in LDL [Mass/Vol] 86.4 mg/dL Normal [facility] Comment on above: Performed By: #### M G, URIC, RENAL #### [facility] [address] [address] [address] Son Higgins Cholesterol.total/C holesterol in HDL [Mass ratio] 4.3 {ratio} Normal [facility] Comment on above: Performed By: #### M G, URIC, RENAL #### [facility] [address] [address] [address] Son Higgins HDL NORMAL > or = 60 mg/dl - LO W CARDIOVASCULAR RISK <40 mg/dl - HIGH CARDIOVASCULAR RISK Normal [facility] Comment on above: Performed By: #### M G, URIC, RENAL #### [facility] [address] [address] [address] Son Higgins LDL CALC NORMAL SEE BELOW Normal [facility] Comment on above: Result Comment: <100 mg/dl OPTIMAL 100 - 129 mg/dl NEAR OR ABOVE OPTIMAL 130 - 159 mg/dl BORDERLINE HIGH 160 - 189 mg/dl HIGH >190 mg/dl VERY HIGH Performed By: #### M G, URIC, RENAL #### [facility] [address] [address] [address] Son Higgins Triglyceride [Mass/Vol] 183 mg/dL Critically high <=150 [facility] Comment on above: Performed By: #### M G, URIC, RENAL #### [facility] [address] [address] [address] Son Higgins VLDL CALC 36.6 mg/dL Normal [facility] Comment on above: Performed By: #### M G, URIC, RENAL #### [facility] [address] [address] [address] Son Higgins PROF 14(COMP METB)on 023 Albumin [Mass/Vol] 3.7 g/dL Normal 3.4-5.0 [facility] Comment on above: Performed By: #### U AMIC #### [facility] [address] [address] [address] Son Higgins Albumin/Globulin [Mass ratio] 0.8 {ratio} Normal [facility] Comment on above: Performed By: #### U AMIC #### [facility] [address] [place] [address] Dr. Son Higgins ALP [Catalytic activity/Vol] 135 U/L Critically high 46-116 [facility] Comment on above: Performed By: #### U AMIC #### [facility] [address] [address] [address] Son Higgins ALT [Catalytic activity/Vol] 39 U/L Normal 14-59 [facility] Comment on above: Performed By: #### U AMIC #### [facility] [address] [address] [address] Son Higgins Anion gap [Moles/Vol] 14.0 mmol/L Normal [facility] Comment on above: Performed By: #### U AMIC #### [facility] [address] [address] [address] Son Higgins AST [Catalytic activity/Vol] 36 U/L Normal 15-37 [facility] Comment on above: Performed By: #### U AMIC #### [facility] [address] [address] [address] Son Higgins Bilirubin [Mass/Vol] 0.5 mg/dL Normal 0.2-1.0 [facility] Comment on above: Performed By: #### U AMIC #### [facility] [address] [address] [address] Son Higgins Calcium [Mass/Vol] 9.4 mg/dL Normal 8.5-10.1 [facility] Comment on above: Performed By: #### U AMIC #### [facility] [address] [address] [address] Son Higgins Chloride [Moles/Vol] 101 mmol/L Normal 98-107 [facility] Comment on above: Performed By: #### U AMIC #### [facility] [address] [address] [address] Son Higgins CO2 [Moles/Vol] 30.5 mmol/L Normal 21.0-32.0 [facility] Comment on above: Performed By: #### U AMIC #### [facility] [address] [address] [address] Son Higgins Creatinine [Mass/Vol] 1.40 mg/dL Critically high 0.55-1.02 [facility] Comment on above: Performed By: #### U AMIC #### [facility] [address] [address] [address] Son Higgins EGFR-AF MALAYSIAN 47 mL/min/1.73m2 Critically low >=60 [facility] Comment on above: Performed By: #### U AMIC #### [facility] [address] [address] [address] Son Higgins EGFR-NON AF MALAYSIAN 39 mL/min/1.73m2 Critically low >=60 [facility] Comment on above: Performed By: #### U AMIC #### [facility] [address] [address] [address] Son Higgins Globulin (S) [Mass/Vol] 4.9 g/dL Normal [facility] Comment on above: Performed By: #### U AMIC #### [facility] [address] [address] [address] Son Higgins Glucose [Mass/Vol] 92 mg/dL Normal 74-106 [facility] Comment on above: Performed By: #### U AMIC #### [facility] [address] [address] [address] Son Higgins Potassium [Moles/Vol] 3.5 mmol/L Normal 3.5-5.1 [facility] Comment on above: Performed By: #### U AMIC #### [facility] [address] [address] [address] Son Higgins Protein [Mass/Vol] 8.6 g/dL Critically high 6.4-8.2 [facility] Comment on above: Performed By: #### U AMIC #### [facility] [address] [address] [address] Son Higgins Sodium [Moles/Vol] 142 mmol/L Normal 136-145 [facility] Comment on above: Performed By: #### U AMIC #### [facility] [address] [place] [address] Dr. Son Higgins Urea nitrogen [Mass/Vol] 12.0 mg/dL Normal 7.0-18.0 [facility] Comment on above: Performed By: #### U AMIC #### [facility] [address] [address] [address] Son Higgins Urea nitrogen/Creatinine [Mass ratio] 8.6 mg/mg Normal [facility] Comment on above: Performed By: #### U AMIC #### [facility] [address] [place] [address] Dr. Son Higgins TSHon 12-10-2022 TSH 4.005 uIU/mL Critically high 0.358-3.740 [facility] Comment on above: Performed By: #### M G, URIC, RENAL #### [facility] [id number] Son Higgins UA RANDOM W/MICROSCOPICon BACTERIA NONE SEEN Normal NONE SEEN [facility] Comment on above: Performed By: #### U AMIC #### [facility] [address] [address] [address] Son Higgins Bilirubin Ql (U) Negative Normal NEGATIVE [facility] Comment on above: Performed By: #### U AMIC #### [facility] [address] [address] [address] Son Higgins CAST NONE SEEN Normal NONE SEEN [facility] Comment on above: Performed By: #### U AMIC #### [facility] [address] [address] [address] Son Higgins Clarity (U) CLEAR Normal CLEAR [facility] Comment on above: Performed By: #### U AMIC #### [facility] [address] [address] [address] Son Higgins Color (U) LT. YELLOW Normal YELLOW [facility] Comment on above: Performed By: #### U AMIC #### [facility] [address] [address] [address] Son Higgins Crystals LM Nom (Urine sed) NONE SEEN Normal NONE SEEN [facility] Comment on above: Performed By: #### U AMIC #### [facility] [address] [place] [address] Dr. Son Higgins Epithelial cells LM Ql (Urine sed) FEW Abnormal NONE SEEN /RARE [facility] Comment on above: Performed By: #### U AMIC #### [facility] [address] [place] [address] Dr. Son Higgins Glucose Ql (U) Negative Normal NEGATIVE [facility] Comment on above: Performed By: #### U AMIC #### [facility] [address] [place] [address] Dr. Son Higgins Hemoglobin Ql (U) Negative Normal NEGATIVE [facility] Comment on above: Performed By: #### U AMIC #### [facility] [address] [place] [address] Dr. Son Higgins Ketones Ql (U) Negative Normal NEGATIVE [facility] Comment on above: Performed By: #### U AMIC #### [facility] [address] [address] [address] Son Higgins LEUKOCYTES Negative Normal NEGATIVE [facility] Comment on above: Performed By: #### U AMIC #### [facility] [address] [address] [address] Son Higgins MUCOUS NONE SEEN Normal NONE SEEN [facility] Comment on above: Performed By: #### U AMIC #### [facility] [address] [address] [address] Son Higgins Nitrite Ql (U) Negative Normal NEGATIVE [facility] Comment on above: Performed By: #### U AMIC #### [facility] [id number] Son Higgins pH (U) 6.0 [pH] Normal 5-9 [facility] Comment on above: Performed By: #### U AMIC #### [facility] [address] [address] [address] Son Higgins RBC 0-2 Normal 0-2 [facility] Comment on above: Performed By: #### U AMIC #### [facility] [address] [place] [address] Dr. Son Higgins SPEC GRAVITY <=1.005 Abnormal 1.005-<=1.025 [facility] Comment on above: Performed By: #### U AMIC #### [facility] [address] [place] [address] Dr. Son Higgins UA PROTEIN Negative Normal NEGATIVE/ TRACE [facility] Comment on above: Performed By: #### U AMIC #### [facility] [address] [place] [address] Dr. Son Higgins Urobilinogen Qn (U) 0.2 {Lopez'U}/dL Normal 0.2 - 1. 0 [facility] Comment on above: Performed By: #### U AMIC #### [facility] [address] [place] [address] Dr. Son Higgins WBC NONE SEEN Normal NONE SEEN [facility] Comment on above: Performed By: #### U AMIC #### [facility] [address] [place] [address] Dr. Son Higgins VITAMIN B12on 12-10-2022 Cobalamin (Vitamin B12) [Mass/Vol] 448.0 pg/mL Normal 193.0-986.0 [facility] Comment on above: Performed By: #### M G, URIC, RENAL #### [facility] [address], [place] [address] Dr. Son Higgins VITAMIN D 25 OHon 12-10-2022 VIT D 25-OH 48.2 ng/mL Normal [facility] Comment on above: Performed By: #### M G, URIC, RENAL #### [facility] [address] [place], [place] [address] Dr. Son Higgins VIT D RANGES SEE BELOW Normal [facility] Comment on above: Result Comment: <20 ng/mL Vit D deficient 20 - <30 ng/mL Vit D insufficient 30 - 100 ng/mL Vit D sufficient >100 ng/mL Potential Toxicity Performed By: #### M G, URIC, RENAL #### [facility] [id number] Son Higgins MG MAMM SCREEN 3D KYLEE CADon 08-13-2022 MG MAMM SCREEN 3D KYLEE CAD Patient: DAMIEN DOVER Exam Date: 08/13/2022 : 1965 Gender:F Ordering : [facility] Admission #: [id number] Family : Order #: [id number] CLICK HERE TO VIEW EXAM RADIOLOGY REPORT [...] lung cancer at age 62. LOCATION: [facility] BREAST COMPOSITION: Scattered areas fibroglandular density. [...] MD on 08/13/2022 at 13:43 Normal [facility] US THYROIDon 08-13-2022 US THYROID EXAMINATION: [...] MICHAEL PATTERSON Date: 2022-08-13 15:05 Normal [facility] PTH INTACTon 05-29-2022 PTH, Intact 49 pg/mL Normal 15-65 [facility] Comment on above: Performed By: #### M G, URIC, RENAL #### [facility] [address] [address] [address] Son Higgins HEMOGRAM AND PLATELon 2021 Hematocrit (Bld) [Volume fraction] 43.1 % Normal 36.0-48.0 [facility] Comment on above: Performed By: #### U AMIC #### [facility] [address] [place] [address] Dr. Son Higgins Hemoglobin (Bld) [Mass/Vol] 14.0 g/dL Normal 12.0-16.0 [facility] Comment on above: Performed By: #### U AMIC #### [facility] [address] [place] [address] Dr. Son Higgins MCH (RBC) [Entitic mass] 30.4 pg Normal 26.7-34.0 [facility] Comment on above: Performed By: #### U AMIC #### [facility] [address] [place] [address] Dr. Son Higgins MCHC (RBC) [Mass/Vol] 32.5 g/dL Normal 29.9-35.2 [facility] Comment on above: Performed By: #### U AMIC #### [facility] [address] [address] [address] Son Higgins MCV (RBC) [Entitic vol] 93.5 fL Normal 81.0-99.0 [facility] Comment on above: Performed By: #### U AMIC #### [facility] [address] [address] [address] Son Higgins PLT 218 103/ul Normal 150-450 [facility] Comment on above: Performed By: #### U AMIC #### [facility] [address] [address] [address] Son Higgins RBC 4.61 106/ul Normal 4.20-5.40 [facility] Comment on above: Performed By: #### U AMIC #### [facility] [address] [place] [address] Dr. Son Higgins WBC 9.0 103/ul Normal 4.0-11.0 [facility] Comment on above: Performed By: #### U AMIC #### [facility] [address] [place] [address] Dr. Son Higgins MAGNESIUMon 05-28-2022 Magnesium [Mass/Vol] 1.7 mg/dL Critically low 1.8-2.4 [facility] Comment on above: Performed By: #### M G, URIC, RENAL #### [facility] [address] [place] [address] Dr. Son Higgnis RENAL FUNCTION PANELon 05-28 Albumin [Mass/Vol] 3.3 g/dL Critically low 3.4-5.0 [facility] [place] Comment on above: Performed By: #### M G, URIC, RENAL #### [facility] [address] [place] [address] Dr. Son Higgins Calcium [Mass/Vol] 8.9 mg/dL Normal 8.5-10.1 [facility] Comment on above: Performed By: #### M G, URIC, RENAL #### [facility] [address] [place] [address] Dr. Son Higgins Chloride [Moles/Vol] 107 mmol/L Normal 98-107 [facility] Comment on above: Performed By: #### M G, URIC, RENAL #### [facility] [address] [place] [address] Dr. Son Higgins CO2 [Moles/Vol] 29.1 mmol/L Normal 21.0-32.0 [facility] Comment on above: Performed By: #### M G, URIC, RENAL #### [facility] [address] [place] [address] Dr. Son Higgins Creatinine [Mass/Vol] 1.36 mg/dL Critically high 0.55-1.02 [facility] Comment on above: Performed By: #### M G, URIC, RENAL #### [facility] [address] [place] [address] Dr. Son Higgins EGFR-AF MALAYSIAN 49 mL/min/1.73m2 Critically low >=60 [facility] Comment on above: Performed By: #### M G, URIC, RENAL #### [facility] [address] [place] [address] Dr. Son Higgins EGFR-NON AF MALAYSIAN 41 mL/min/1.73m2 Critically low >=60 [facility] Comment on above: Performed By: #### M G, URIC, RENAL #### [facility] [address] [place] [address] Dr. Son Higgins Glucose [Mass/Vol] 91 mg/dL Normal 74-106 [facility] Comment on above: Performed By: #### M G, URIC, RENAL #### [facility] [address] [place] [address] Dr. Son Higgins Phosphate [Mass/Vol] 3.6 mg/dL Normal 2.6-4.7 [facility] Comment on above: Performed By: #### M G, URIC, RENAL #### [facility] [address] [place] [address] Dr. Son Higgins Potassium [Moles/Vol] 3.8 mmol/L Normal 3.5-5.1 [facility] Comment on above: Performed By: #### M G, URIC, RENAL #### [facility] [address] [place] [address] Dr. Son Higgins Sodium [Moles/Vol] 143 mmol/L Normal 136-145 [facility] Comment on above: Performed By: #### M G, URIC, RENAL #### [facility] [address] [place] [address] Dr. Son Higgins Urea nitrogen [Mass/Vol] 9.0 mg/dL Normal 7.0-18.0 [facility] Comment on above: Performed By: #### M G, URIC, RENAL #### [facility] [address] [place] [address] Dr. Son Higgins UA RANDOM W/MICROSCOPICon BACTERIA NONE SEEN Normal NONE SEEN [facility] Comment on above: Performed By: #### M G, URIC, RENAL #### [facility] [address] [place] [address] Dr. Son Higgins Bilirubin Ql (U) Negative Normal NEGATIVE [facility] Comment on above: Performed By: #### M G, URIC, RENAL #### [facility] [address] [place] [address] Dr. Son Higgins CAST NONE SEEN Normal NONE SEEN [facility] Comment on above: Performed By: #### M G, URIC, RENAL #### [facility] [address] [place] [address] Dr. Son Higgins Clarity (U) CLEAR Normal CLEAR [facility] Comment on above: Performed By: #### M G, URIC, RENAL #### [facility] [address] [place] [address] Dr. Son Higgins Color (U) LT. YELLOW Normal YELLOW [facility] Comment on above: Performed By: #### M G, URIC, RENAL #### [facility] [address] [place] [address] Dr. Son Higgins Crystals LM Nom (Urine sed) NONE SEEN Normal NONE SEEN [facility] Comment on above: Performed By: #### M G, URIC, RENAL #### [facility] [address] [place] [address] Dr. Son Higgins Epithelial cells LM Ql (Urine sed) RARE Normal NONE SEEN /RARE [facility] Comment on above: Performed By: #### M G, URIC, RENAL #### [facility] [address] [address] [address] Son Higgins Glucose Ql (U) Negative Normal NEGATIVE [facility] Comment on above: Performed By: #### M G, URIC, RENAL #### [facility] [address] [address] [address] Son Higgins Hemoglobin Ql (U) Negative Normal NEGATIVE [facility] Comment on above: Performed By: #### M G, URIC, RENAL #### [facility] [address] [address] [address] Son Higgins Ketones Ql (U) Negative Normal NEGATIVE [facility] Comment on above: Performed By: #### M G, URIC, RENAL #### [facility] [address] [address] [address] Son Higgins LEUKOCYTES Negative Normal NEGATIVE [facility] Comment on above: Performed By: #### M G, URIC, RENAL #### [facility] [address] [address] [address] Son Higgins MUCOUS NONE SEEN Normal NONE SEEN [facility] Comment on above: Performed By: #### M G, URIC, RENAL #### [facility] [address] [address] [address] Son Higgins Nitrite Ql (U) Negative Normal NEGATIVE [facility] Comment on above: Performed By: #### M G, URIC, RENAL #### [facility] [address] [address] [address] Son Higgins pH (U) 6.0 [pH] Normal 5-9 [facility] Comment on above: Performed By: #### M G, URIC, RENAL #### [facility] [address] [address] [address] Son Higgins RBC NONE SEEN Abnormal 0-2 [facility] Comment on above: Performed By: #### M G, URIC, RENAL #### [facility] [address] [place] [address] Dr. Son Higgins SPEC GRAVITY <=1.005 Abnormal 1.005-<=1.025 [facility] Comment on above: Performed By: #### M G, URIC, RENAL #### [facility] [address] [address] [address] Son Higgins UA PROTEIN Negative Normal NEGATIVE/ TRACE [facility] Comment on above: Performed By: #### M G, URIC, RENAL #### [facility] [address] [place] [address] Dr. Son Higgins Urobilinogen Qn (U) 0.2 {Lopez'U}/dL Normal 0.2 - 1. 0 [facility] Comment on above: Performed By: #### M G, URIC, RENAL #### [facility] [address] [place] [address] Dr. Son Higgins WBC NONE SEEN Normal NONE SEEN [facility] Comment on above: Performed By: #### M G, URIC, RENAL #### [facility] [address] [place] [address] Dr. Son Higgins URIC ACID SERUMon 05-28-2022 Urate [Mass/Vol] 6.7 mg/dL Critically high 2.6-6.0 [facility] Comment on above: Performed By: #### M G, URIC, RENAL #### [facility] [address] [place] [address] Dr. Son Higgins URINE T PROTEIN CREAT RATIOo n 05-28-2022 UR TOTAL PROTEIN <6.0 Normal <=12.0 [facility] Comment on above: Performed By: #### U RTPCR #### [facility] [address] [place] [address] Dr. Son Higgins URINE CREAT 9.79 mg/dL Critically low 20.00-300.00 [facility] Comment on above: Performed By: #### U RTPCR #### [facility] [address] [place] [address] Dr. Son Higgins VITAMIN D 25 OHon 05-28-2022 VIT D 25-OH 38.3 ng/mL Normal [facility] Comment on above: Performed By: #### U AMIC #### [facility] [address] [place] [address] Dr. Son Higgins VIT D RANGES SEE BELOW Normal [facility] Comment on above: Result Comment: <20 ng/mL Vit D deficient 20 - <30 ng/mL Vit D insufficient 30 - 100 ng/mL Vit D sufficient >100 ng/mL Potential Toxicity Performed By: #### U AMIC #### [facility] [address] [address] [address] Son Higgins US SINGLE QUAD RT [...] MICHAEL PATTERSON Date: 2022-03-29 10:00 Normal [facility] LIVER PROFILEon 03-26-2022 Albumin [Mass/Vol] 3.6 g/dL Normal 3.4-5.0 [facility] Comment on above: Performed By: #### U AMIC #### [facility] [address] [place] [address] Dr. Son Higgins Albumin/Globulin [Mass ratio] 0.8 {ratio} Normal [facility] Comment on above: Performed By: #### U AMIC #### [facility] [address] [address] [address] Son Higgins ALP [Catalytic activity/Vol] 141 U/L Critically high 46-116 [facility] Comment on above: Performed By: #### U AMIC #### [facility] [address] [address] [address] Son Higgins ALT [Catalytic activity/Vol] 50 U/L Normal 14-59 [facility] Comment on above: Performed By: #### U AMIC #### [facility] [address] [address] [address] Son Higgins AST [Catalytic activity/Vol] 32 U/L Normal 15-37 [facility] Comment on above: Performed By: #### U AMIC #### [facility] [address] [place] [address] Dr. Son Higgins BILI, CONJUGATED 0.1 mg/dL Normal 0.0-0.2 [facility] Comment on above: Performed By: #### U AMIC #### [facility] [address] [place] [address] Dr. Son Higgins Bilirubin [Mass/Vol] 0.5 mg/dL Normal 0.2-1.0 [facility] Comment on above: Performed By: #### U AMIC #### [facility] [address] [place] [address] Dr. Son Higgins Globulin (S) [Mass/Vol] 4.4 g/dL Normal [facility] Comment on above: Performed By: #### U AMIC #### [facility] [address] [place] [address] Dr. Son Higgins Protein [Mass/Vol] 8.0 g/dL Normal 6.1-8.2 [facility] Comment on above: Performed By: #### U AMIC #### [facility] [address] [place] [address] Dr. Son Higgnis CBC AUTO DIFFon 03-05-2022 BASO # 0.1 103/ul Normal 0.0-0.1 [facility] Comment on above: Performed By: #### C BC #### [facility] [address] [place] [address] Dr. Son Higgins Basophils/100 WBC (Bld) 0.6 % Normal 0.2-2.0 [facility] Comment on above: Performed By: #### C BC #### [facility] [address] [place] [address] Dr. Son Higgins EO # 0.3 103/ul Normal 0.0-0.7 [facility] Comment on above: Performed By: #### C BC #### [facility] [address] [place] [address] Dr. Son Higgins Eosinophils/100 WBC (Bld) 3.2 % Normal 0.9-7.0 [facility] Comment on above: Performed By: #### C BC #### [facility] [address] [place] [address] Dr. Son Higgins Erythrocyte distribution width (RBC) [Ratio] 15.9 % Critically high 11.0-15.0 [facility] Comment on above: Performed By: #### C BC #### [facility] [address] [place] [address] Dr. Son Higgins Hematocrit (Bld) [Volume fraction] 43.6 % Normal 36.0-48.0 [facility] Comment on above: Performed By: #### C BC #### [facility] [address] [place] [address] Dr. Son Higgins Hemoglobin (Bld) [Mass/Vol] 14.1 g/dL Normal 12.0-16.0 [facility] Comment on above: Performed By: #### C BC #### [facility] [address] [place] [address] Dr. Son Higgins IG # 0.04 10e3/ul Critically high 0.00-0.03 [facility] Comment on above: Performed By: #### C BC #### [facility] [address] [place] [address] Dr. Son Higgins IG % 0.4 % Normal 0.0-0.5 [facility] Comment on above: Performed By: #### C BC #### [facility] [address] [place] [address] Dr. Son Higgins LYMPH # 2.9 103/ul Normal 1.2-3.8 [facility] Comment on above: Performed By: #### C BC #### [facility] [address] [place] [address] Dr. Son Higgins Lymphocytes/100 WBC (Bld) 29.5 % Normal 20.5-60.0 [facility] Comment on above: Performed By: #### C BC #### [facility] [address] [place] [address] Dr. Son Higgins MANUAL DIFF REQ NO Normal [facility] Comment on above: Performed By: #### C BC #### [facility] [address] [place] [address] Dr. Son Higgins MCH (RBC) [Entitic mass] 30.3 pg Normal 26.7-34.0 [facility] Comment on above: Performed By: #### C BC #### [facility] [address] [place] [address] Dr. Son Higgins MCHC (RBC) [Mass/Vol] 32.3 g/dL Normal 29.9-35.2 [facility] Comment on above: Performed By: #### C BC #### [facility] [address] [place] [address] Dr. Son Higgins MCV (RBC) [Entitic vol] 93.6 fL Normal 81.0-99.0 [facility] Comment on above: Performed By: #### C BC #### [facility] [address] [place] [address] Dr. Son Higgins MONO # 0.5 103/ul Normal 0.3-0.8 [facility] Comment on above: Performed By: #### C BC #### [facility] [address] [place] [address] Dr. Son Higgins Monocytes/100 WBC (Bld) 4.8 % Normal 1.7-12.0 [facility] Comment on above: Performed By: #### C BC #### [facility] [address] [place] [address] Dr. Son Higgins NEUT # 6.1 103/ul Normal 1.4-6.5 [facility] Comment on above: Performed By: #### C BC #### [facility] [address] [place] [address] Dr. Son Higgins Neutrophils/100 WBC (Bld) 61.5 % Normal 43.0-75.0 [facility] Comment on above: Performed By: #### C BC #### [facility] [address] [place] [address] Dr. Son Higgins Platelet mean volume (Bld) [Entitic vol] 10.3 fL Normal 9.5-13.5 [facility] Comment on above: Performed By: #### C BC #### [facility] [address] [place] [address] Dr. Son Higgins PLT 225 103/ul Normal 150-450 [facility] Comment on above: Performed By: #### C BC #### [facility] [address] [address] [address] Son Higgins RBC 4.66 106/ul Normal 4.20-5.40 [facility] Comment on above: Performed By: #### C BC #### [facility] [address] [place] [address] Dr. Son Higgins WBC 9.9 103/ul Normal 4.0-11.0 [facility] Comment on above: Performed By: #### C BC #### [facility] [address] [place] [address] Dr. Son Higgins FREE T4on 03-05-2022 Free T4 [Mass/Vol] 1.07 ng/dL Normal 0.78-2.19 [facility] Comment on above: Performed By: #### M G, URIC, RENAL #### [facility] [address] [place] [address] Dr. Son Higgins PROF 14(COMP METB)on 022 Albumin [Mass/Vol] 3.4 g/dL Normal 3.4-5.0 [facility] Comment on above: Performed By: #### M G, URIC, RENAL #### [facility] [address] [place] [address] Dr. Son Higgins Albumin/Globulin [Mass ratio] 0.8 {ratio} Normal [facility] Comment on above: Performed By: #### M G, URIC, RENAL #### [facility] [address] [place] [address] Dr. Son Higgins ALP [Catalytic activity/Vol] 134 U/L Critically high 46-116 [facility] Comment on above: Performed By: #### M G, URIC, RENAL #### [facility] [address] [address] [address] Son Higgins ALT [Catalytic activity/Vol] 35 U/L Normal 14-59 [facility] Comment on above: Performed By: #### M G, URIC, RENAL #### [facility] [address] [address] [address] Son Higgins Anion gap [Moles/Vol] 10.8 mmol/L Normal [facility] Comment on above: Performed By: #### M G, URIC, RENAL #### [facility] [address] [address] [address] Son Higgins AST [Catalytic activity/Vol] 22 U/L Normal 15-37 [facility] Comment on above: Performed By: #### M G, URIC, RENAL #### [facility] [address] [place] [address] Dr. Son Higgins Bilirubin [Mass/Vol] 0.5 mg/dL Normal 0.2-1.3 [facility] Comment on above: Performed By: #### M G, URIC, RENAL #### [facility] [address] [address] [address] Son Higgins Calcium [Mass/Vol] 9.3 mg/dL Normal 8.5-10.1 [facility] Comment on above: Performed By: #### M G, URIC, RENAL #### [facility] [address] [address] [address] Son Higgins Chloride [Moles/Vol] 105 mmol/L Normal 98-107 [facility] Comment on above: Performed By: #### M G, URIC, RENAL #### [facility] [address] [address] [address] Son Higgins CO2 [Moles/Vol] 26.9 mmol/L Normal 22.0-30.0 [facility] Comment on above: Performed By: #### M G, URIC, RENAL #### [facility] [address] [address] [address] Son Higgins Creatinine [Mass/Vol] 1.32 mg/dL Critically high 0.52-1.04 [facility] Comment on above: Performed By: #### M G, URIC, RENAL #### [facility] [address] [address] [address] Son Higgins EGFR-AF MALAYSIAN 51 mL/min/1.73m2 Critically low >=60 [facility] Comment on above: Performed By: #### M G, URIC, RENAL #### [facility] [address] [place] [address] Dr. Son Higgins EGFR-NON AF MALAYSIAN 42 mL/min/1.73m2 Critically low >=60 [facility] Comment on above: Performed By: #### M G, URIC, RENAL #### [facility] [address] [place] [address] Dr. Son Higgins Globulin (S) [Mass/Vol] 4.4 g/dL Normal [facility] Comment on above: Performed By: #### M G, URIC, RENAL #### [facility] [address] [place] [address] Dr. Son Higgins Glucose [Mass/Vol] 92 mg/dL Normal 74-106 [facility] Comment on above: Performed By: #### M G, URIC, RENAL #### [facility] [address] [place] [address] Dr. Son Higgins Potassium [Moles/Vol] 3.7 mmol/L Normal 3.4-5.0 [facility] Comment on above: Performed By: #### M G, URIC, RENAL #### [facility] [address] [place] [address] Dr. Son Higgins Protein [Mass/Vol] 7.8 g/dL Normal 6.1-8.2 [facility] Comment on above: Performed By: #### M G, URIC, RENAL #### [facility] [address] [place] [address] Dr. Son Higgins Sodium [Moles/Vol] 139 mmol/L Normal 137-145 [facility] Comment on above: Performed By: #### M G, URIC, RENAL #### [facility] [address] [place] [address] Dr. Son Higgins Urea nitrogen [Mass/Vol] 11.0 mg/dL Normal 7.0-18.0 [facility] Comment on above: Performed By: #### M Jacqui URIC, RENAL #### [facility] [address] [place] [address] Dr. Son Higgins Urea nitrogen/Creatinine [Mass ratio] 8.3 mg/mg Normal [facility] Comment on above: Performed By: #### M Jacqui URIC, RENAL #### [facility] [address] [address] [address] Son Higgins TSHon 03-05-2022 TSH 1.935 uIU/mL Normal 0.470-4.680 [facility] Comment on above: Performed By: #### M JEIMY Osman, RENAL #### [facility] [address] [place] [address] Dr. Son Higgins TSH RANGE SEE BELOW Normal [facility] Comment on above: Result Comment: <0.3 4 UIU/ml HYPERTHYROID 0.34-5.60 UIU/ml EUTHYROID >5.60 UIU/ml HYPOTHYROID Performed By: #### JEIMY Mills, RENAL #### [facility] [address] [place] [address] Dr. Son Higgins VITAMIN B12on 03-05-2022 Cobalamin (Vitamin B12) [Mass/Vol] 361.0 pg/mL Normal 239.0-931.0 [facility] Comment on above: Performed By: #### M JEIMY Osman, RENAL #### [facility] [address] [place] [address] Dr. Son Higgins VITAMIN D 25 OHon 03-05-2022 VIT D 25-OH 39.4 ng/mL Normal [facility] Comment on above: Performed By: #### M JEIMY Osman, RENAL #### [facility] [address] [place] [address] Dr. Son Higgins VIT D RANGES SEE BELOW Normal [facility] Comment on above: Result Comment: <20 ng/mL Vit D deficient 20 - <30 ng/mL Vit D insufficient 30 - 100 ng/mL Vit D sufficient >100 ng/mL Potential Toxicity Performed By: #### M G, URIC, RENAL #### [facility] [address] [address] [address] Son Higgins NM gastric emptying studyon 07-03-2021 NM gastric emptying study [facility] [place] [address] Nuclear Medicine Report Signed Patient: Damien Dover MR#: [id number] : 1965 Acct:[id number] Age/Sex: 55 / F ADM Date: 07/03/21 Loc: NM Room: Type: [facility] Attending Dr: Michael Mcguire DO Ordering [...] Lex Velasquez M.D.07/03/2021 10:58 AM Dictation Location: [place] [address] Transcribed By: [facility] 07/03/21 1058 Dictated By: Lex Velasquez DO 07/03/21 1054 Signed By: 07/03/[address] [facility] BASIC METABOLIC PANELon Anion gap [Moles/Vol] 14 mmol/L Normal 10 - 20 [facility] Comment on above: Performed By: #### B MP #### [facility] [address] [place] [address] Calcium [Mass/Vol] 9.7 mg/dL Normal 8.6 - 10.3 [facility] [place] Comment on above: Performed By: #### B MP #### [facility] [address] [place] [address] Chloride [Moles/Vol] 103 mmol/L Normal 98 - 107 [facility] Comment on above: Performed By: #### B MP #### [address] [address] Creatinine [Mass/Vol] 1.20 mg/dL High 0.50 - 1.05 [facility] Comment on above: Performed By: #### B MP #### [address] [address] GFR- AM. 57 mL/min/1.73m2 Abnormal >60 [facility] Comment on above: Result Comment: CALC ULATIONS OF ESTIMATED GFR ARE PERFORMED USING THE MDRD STUDY EQUATION FOR THE IDMS-TRACEABLE CREATININE METHODS. CLIN CHEM 2007;53:766-72 Performed By: #### B MP #### [address] [address] GFR-NON AM. 47 mL/min/1.73m2 Abnormal >60 [facility] Comment on above: Performed By: #### B MP #### [address] [address] Glucose [Mass/Vol] 108 mg/dL High 74 - 99 [facility] [place] Comment on above: Performed By: #### B MP #### [address] [address] HCO3 (Bld) [Moles/Vol] 27 mmol/L Normal 21 - 32 [facility] Comment on above: Performed By: #### B MP #### [address] [address] Potassium [Moles/Vol] 3.6 mmol/L Normal 3.5 - 5.3 [facility] Comment on above: Performed By: #### B MP #### [address] [address] Sodium [Moles/Vol] 140 mmol/L Normal 136 - 145 [facility] [place] Comment on above: Performed By: #### B MP #### [address] [address] Urea nitrogen [Mass/Vol] 11 mg/dL Normal 6 - 23 [facility] Comment on above: Performed By: #### B MP #### [address] [place] [address] CBC AND DIFFERENTIALon 08-09 % AUTOMATED IMMATURE GRAN 0.2 % Normal 0.0 - 0.9 [facility] Comment on above: Result Comment: Perc ent differential counts (%) should be interpreted in the context of the absolute cell counts (cells/L). Performed By: #### C BCDF #### [facility] [address] [place] [address] Basophils (Bld) [#/Vol] 0.08 10*3/uL Normal 0.00 - 0.10 [facility] Comment on above: Performed By: #### C BCDF #### [facility] [address] [place] [address] Basophils/100 WBC (Bld) 0.8 % Normal 0.0 - 2.0 [facility] Comment on above: Performed By: #### C BCDF #### [facility] [address] [place] [address] Eosinophils (Bld) [#/Vol] 0.61 10*3/uL Normal 0.00 - 0.70 [facility] Comment on above: Performed By: #### C BCDF #### [address] [address] Eosinophils/100 WBC (Bld) 6.4 % Normal 0.0 - 6.0 [facility] Comment on above: Performed By: #### C BCDF #### [facility] [address] [place] [address] Lymphocytes (Bld) [#/Vol] 3.25 10*3/uL Normal 1.20 - 4.80 [facility] Comment on above: Performed By: #### C BCDF #### [address] [address] Lymphocytes/100 WBC (Bld) 33.9 % Normal 13.0 - 44.0 [facility] Comment on above: Performed By: #### C BCDF #### [facility] [address] [place] [address] Monocytes (Bld) [#/Vol] 0.62 10*3/uL Normal 0.10 - 1.00 [facility] Comment on above: Performed By: #### C BCDF #### [facility] [address] [place] [address] Monocytes/100 WBC (Bld) 6.5 % Normal 2.0 - 10.0 [facility] Comment on above: Performed By: #### C BCDF #### [facility] [address] [place] [address] Neutrophils (Bld) [#/Vol] 5.00 10*3/uL Normal 1.20 - 7.70 [facility] Comment on above: Performed By: #### C BCDF #### [facility] [address] [place] [address] Neutrophils/100 WBC (Bld) 52.2 % Normal 40.0 - 80.0 [facility] Comment on above: Performed By: #### C BCDF #### [facility] [address] [place] [address] Erythrocyte distribution width (RBC) [Ratio] 16.1 % High 11.5 - 14.5 [facility] Comment on above: Performed By: #### C BCDF #### [facility] [address] [place] [address] Hematocrit (Bld) [Volume fraction] 41.2 % Normal 36.0 - 46.0 [facility] Comment on above: Performed By: #### C BCDF #### [facility] [address] [place] [address] Hemoglobin (Bld) [Mass/Vol] 13.2 g/dL Normal 12.0 - 16.0 [facility] Comment on above: Performed By: #### C BCDF #### [facility] [address] [place] [address] MCHC (RBC) [Mass/Vol] 32.0 g/dL Normal 32.0 - 36.0 [facility] Comment on above: Performed By: #### C BCDF #### [facility] [address] [place] [address] MCV (RBC) [Entitic vol] 91 fL Normal 80 - 100 [facility] Comment on above: Performed By: #### C BCDF #### [facility] [address] [place] [address] Platelets (Bld) [#/Vol] 224 10*3/uL Normal 150 - 450 [facility] Comment on above: Performed By: #### C BCDF #### [facility] [address] [place] [address] RBC (Bld) [#/Vol] 4.52 x10E12/L Normal 4.00 - 5.20 [facility] Comment on above: Performed By: #### C BCDF #### [facility] [address] [place] [address] WBC (Bld) [#/Vol] 9.6 10*3/uL Normal 4.4 - 11.3 [facility] [place] Comment on above: Performed By: #### C BCDF #### [facility] [address] [place] [address] DUPLEX LOWER EXTREMITY VEINS , RIGHT, UNILATERALon 08-09-2019 DUPLEX LOWER EXTREMITY VEINS, RIGHT, UNILATERAL Patient Name: DAMIEN DOVER STUDY: DUPLEX LOWER EXTREMITY VEINS, RIGHT, UNILATERAL; 08/09/2019 3:08 pm INDICATION: rle swelling and rt thigh numbness. COMPARISON: None. ACCESSION NUMBER(S): [id number] ORDERING CLINICIAN: MARLEY MONAE TECHNIQUE: Vascular ultrasound [...] Electronically signed by: MICHELLE BHARDWAJ MD Normal [facility] PT/INRon 08-09-2019 INR Coag (PPP) [Relative time] 1.0 {INR} Normal 0.9 - 1.1 [facility] Comment on above: Performed By: #### P TINR #### [place] [address] PT Coag (PPP) [Time] 11.4 s Normal 9.7 - 12.7 [facility] Comment on above: Performed By: #### P TINR #### [place] [id number] Provider Note - ED v2on Provider Note [...] followed by a neurologist Dr. Donohue at [facility] in [place] she is pending epidural shots in her [...] is a local resident. [Lives in [facility] MEDICATIONS: Nursing notes were reviewed. 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: Is : no(1) Is : no(1) MEDICAL [...] From Triage - ED 09-Aug-2019 13:23 Normal [facility] Risk Screen - Adult Emergenc yon 08-09-2019 [...] Learning Preferenceswritten material Cultural Considerationsnone Developmental Considerationsnone Islam Considerationsnone Learning Assessment (Other Learner): Learning Assessment (Other Learner): Other learner availableno Pressure Injury/TB/Substance: Pressure Injury: Do you have a coughno Admission Risk Screen: Significant IndicatorsComplete CAGE: CAGE: Is this an injured patient at a Trauma Center ([facility]): no Electronic Signatures: Kimberly Reyes (BRYANT) (Signed 09-Aug-2019 14:09) Authored: Preferred Language, Advanced Directives, Family Violence Adult, Learning Assessment (Patient), Learning Assessment (Other Learner), Pressure Injury/TB/Substance, CAGE Last Updated: 09-Aug-2019 14:09 by Kimberly Reyes (BRYANT) Normal [facility] Triage - EDon 08-09-2019 Triage - ED [...] immunocompromised related to: N/A Travel outside of [facility]: no Allergies: no 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 CELLS 3+ /HPF Normal [facility] Comment on above: Performed By: #### U AMIC #### [facility] [address] [place] [address] WBC (Bld) [#/Vol] 0-5 Normal 0-5 [facility] Comment on above: Performed By: #### U AMIC #### [address] [address] URINALYSIS WITH REFLEX TO CU LTUREon 08-09-2019 Appearance (U) HAZY Normal CLEAR [facility] Comment on above: Performed By: #### U ARFX #### [facility] [address] [place] [address] Bilirubin (U) [Mass/Vol] Negative Normal NEGATIVE [facility] Comment on above: Performed By: #### U ARFX #### [facility] [address] [place] [address] BLOOD Negative Normal NEGATIVE [facility] Comment on above: Performed By: #### U ARFX #### [address] [address] Color (U) YELLOW Normal STRAW,YELLOW [facility] Comment on above: Performed By: #### U ARFX #### [address] [address] Glucose [Mass/Vol] Negative Normal NEGATIVE [facility] [place] Comment on above: Performed By: #### U ARFX #### [address] [address] Ketones Ql (U) Negative Normal NEGATIVE [facility] Comment on above: Performed By: #### U ARFX #### [address] [address] Leukocyte esterase Test strip Ql (U) TRACE Abnormal NEGATIVE [facility] Comment on above: Performed By: #### U ARFX #### [address] [address] Nitrite Ql (U) Negative Normal NEGATIVE [facility] Comment on above: Performed By: #### U ARFX #### [address] [address] pH (Bld) 7.0 Normal 5.0 - 8.0 [facility] Comment on above: Performed By: #### U ARFX #### [address] [address] Protein (U) [Mass/Vol] Negative Normal NEGATIVE [facility] Comment on above: Performed By: #### U ARFX #### [address] [address] Specific gravity (U) [Rel density] 1.004 Low 1.005 - 1.035 [facility] Comment on above: Performed By: #### U ARFX #### [facility] [address] [place] [address] Urobilinogen Qn (U) <2.0 Normal 0.0 - 1.9 [facility] Comment on above: Performed By: #### U ARFX #### [facility] [address] [place] [address] URINE CULTURE,BACTERIALon URINE CULTURE,BACTERIAL PATIENT: DAMIEN DOVER LOCATION: MAYDA OSORIO#: [id number] : 69 AGE: SEX: F ORDERED BY: MARLEY MONAE SOURCE: URINE COLLECTED: 08/09/19 14:55 ANTIBIOTICS AT [facility].: RECEIVED : 08/10/19 01:11 SITE: R E S U L T S URINE CULTURE,BACTERIAL FINAL 08/10/19 21:42 NO SIGNIFICANT GROWTH. Normal [facility] Comment on above: Performed By: #### U RINC #### [facility] [address] [place] [address] Coding Summary.on 11-09-2018 Coding Summary. CODING DATE: 018 FINAL [facility] DSC STATUS: Home (Routine DC) PAYOR: [...] Rocha Revised Date Saved: 11/09/2018 11:49 am [facility] Main OR Intraoperative Recor don 11-05-2018 Main OR Intraoperative Record IntraOp Document Type FTURO Summary Primary Physician: Brandon Mahmood Jr., MD Finalized Date/Time: 11/05/18 16:12:35 Pt. Name: DAMIEN DOVER Rubina Toscano/Sex: 1965 Female Med Rec #: [id number] Physician: Brandon Mahmood Jr., MD Financial #: [id number] Pt. Type: O Room/Bed: / Admit/Disch: 11/05/18 15:16:33 - Institution: Case Times FTURO Entry 1 Patient Times In Room 11/05/18 16:02:00 Out Room 11/05/18 16:13:00 Procedure Times Start 11/05/18 16:05:00 Stop 11/05/18 16:07:00 Anesthesia Times Last Modified By: MISHA Khan RN, Lou Ann 11/05/18 16:12:20 Case Attendance FTURO Entry 1 Entry 2 Entry 3 Case Attendee Brandon Mahmood Jr., MD, RN, BRYANTORShanna [facility] R Role Performed Surgeon - Primary Custom Applicator - Primary Scrub - Primary Time In [...] PAIN, rectocele, urethral stricture Last Modified By: MISHA Khan RN, Lou Ann 11/05/18 16:07:39 Post-Care [...] MISHA Khan RN, Lou Applicable) Zuly Oshea PROVIDER ENROLLMENT SPECIALIST, Mini R Time Out Complete 11/05/18 16:03:00 Allergies Reviewed? Yes Allergies Reviewed Self/Patient With Body Position Frog Legged Prep Area perinium Prep Agents Betadine Solution Skin. Condition Intact, [place], Warm, and Dry Additional None Specimens Collected [...] Khan RN, Lou Ann 11/05/18 16:[address] [facility] Main [place] Preoperative Recordo n 11-05-2018 Main OR Preoperative Record Holding Area Document Type FTURO Summary Primary Physician: Brandon Mahmood Jr., MD Finalized Date/Time: 11/05/18 16:12:55 Pt. Name: DAMIEN DOVER /Sex: 1965 Female Med Rec #: [id number] Physician: Brandon Mahmood Jr., MD Financial #: [id number] Pt. Type: O Room/Bed: / Admit/Disch: 11/05/18 [...] Complaints of Pain: No Skin Integrity Intact, [place], Warm, & Dry Vitals - EU Blood Pressure 165/98 Pulse 100 bpm Respirations 18 br/min SPO2 RN Reviewed Yes Last Modified By: MISHA Khan RN, Lou Ann 11/05/18 16:05:02 Finalized By: MISHA Khan RN, Lou Ann Document Signatures Signed By: MISHA Khna RN, Lou Ann 11/05/18 16:05 Jojo Barba LPN 11/05/18 15:34 MISHA Khan RN, Lou Ann 11/05/18 16:[address] [facility] Operative Reporton 8 Operative Report Patient: KYLE [...] urine. The Urethra was dilated to: 26 Albanian w/ sounds. Devices Implanted: None. Removal: Cystoscope is removed, The patient tolerated it well. Postoperative Information Discharge: Patient is discharged home with antibiotic coverage, Follow up arranged, The patient will follow-up in the office and 2-3 weeks. We will likely refer her to general surgery for repair of her rectocele once she is recovered from this procedure.. Normal [facility] Comment on above: Result Comment: Elec tronically Signed By: Timoteo Swann MD, Brandon Barajas\.br\Date and Time Signed: 11/05/18 16:13 EST Vital Signs Date Time Vital Sign Value Performing Clinician Facility 01-13-2024 09:44-0500 Body height 162.6 cm Zee Stevens NP Work Phone: [facility] 01-13-2024 09:44-0500 Body mass index (BMI) [Ratio] 40.51 kg/m2 Zee Stevens NP Work Phone: [facility] 01-13-2024 09:44-0500 Body temperature 97.3 [degF] Zee Stevens NP Work Phone: [facility] 01-13-2024 09:44-0500 Body weight 107.05 kg Zee Stevens NP Work Phone: [facility] 01-13-2024 09:44-0500 Diastolic blood pressure 82 mm[Hg] Zee Stevens MINE SUPERINTENDENT Work Phone: [facility] 01-13-2024 09:44-0500 Heart rate 83 /min Zee Stevens MINE SUPERINTENDENT Work Phone: [facility] 01-13-2024 09:44-0500 Respiratory rate 18 /min Zee Stevens MINE SUPERINTENDENT Work Phone: [facility] 01-13-2024 09:44-0500 SaO2% (BldA) [Mass fraction] 94 % Zee Stevens MINE SUPERINTENDENT Work Phone: [facility] 01-13-2024 09:44-0500 Systolic blood pressure 136 mm[Hg] Zee Stevens MINE SUPERINTENDENT Work Phone: [facility] 07-31-2023 09:00-0400 Body height 162.56 cm Rosanna Berny Other [facility] Other 07-31-2023 09:00-0400 Body mass index (BMI) [Ratio] 38.82 kg/m2 Rosanna Berny Other [facility] Other 07-31-2023 09:00-0400 Body temperature 96.9 [degF] Rosanna Berny Other [facility] Other 07-31-2023 09:00-0400 Body weight 102.6 kg Rosanna Berny Other [facility] Other 07-31-2023 09:00-0400 Diastolic blood pressure 80 mm[Hg] Rosanna Berny Other [facility] Other 07-31-2023 09:00-0400 Respiratory rate 18 /min Rosanna Berny Other [facility] Other 07-31-2023 09:00-0400 SaO2% (BldA) [Mass fraction] 97 % Rosanna Berny Other [facility] Other 07-31-2023 09:00-0400 Systolic blood pressure 130 mm[Hg] Rosanna Berny Other [facility] Other 11-01-2021 10:00-0500 Body height 162.56 cm Rosanna Berny Other [facility] Other 11-01-2021 10:00-0500 Body mass index (BMI) [Ratio] 39.92 kg/m2 Rosnana Berny Other [facility] Other 11-01-2021 10:00-0500 Body temperature 98.9 [degF] Rosanna Berny Other [facility] Other 11-01-2021 10:00-0500 Body weight 105.51 kg Rosanna Berny Other [facility] Other 11-01-2021 10:00-0500 Diastolic blood pressure 84 mm[Hg] Rosanna Berny Other [facility] Other 11-01-2021 10:00-0500 Respiratory rate 18 /min Rosanna Berny Other [facility] Other 11-01-2021 10:00-0500 SaO2% (BldA) [Mass fraction] 98 % Rosanna Berny Other [facility] Other 11-01-2021 10:00-0500 Systolic blood pressure 140 mm[Hg] Rosanna Sifuentes Other [facility] Other 09-12-2021 14:00-0400 Body height 162.56 cm Michael Mcguire Other [facility] Other 09-12-2021 14:00-0400 Body mass index (BMI) [Ratio] 39.65 kg/m2 Michael Maynor Other [facility] Other 09-12-2021 14:00-0400 Body weight 104.78 kg Michael Maynor Other [facility] Other 09-12-2021 14:00-0400 Diastolic blood pressure 100 mm[Hg] Michael Maynor Other [facility] Other 09-12-2021 14:00-0400 Systolic blood pressure 164 mm[Hg] Michael Maynor Other [facility] Other Encounters Encounter Date Encounter Type Care Provider Facility Start: 01-13-2024 Bamboo flowsheet Zee Stevens MINE SUPERINTENDENT Work Phone: [facility] Start: 01-13-2024 Bamboo flowsheet Zee Stevens MINE SUPERINTENDENT Work Phone: [facility] Start: 01-13-2024 End: 01-13-2024 ambulatory ZEE STEVENS Not Available Start: 01-13-2024 End: 01-13-2024 Office outpatient visit 25 minutes Zee Stevens MINE SUPERINTENDENT Work Phone: [facility] Comment on above: Primary hypertension (CMS/HCC) (Primary Dx); Tobacco user; BMI 40.0-44.9, adult (CMS/HCC); Hypothyroidism, unspecified type (CMS/HCC); Mixed hyperlipidemia (CMS/HCC); Acute non-recurrent sinusitis of other sinus; AYAH (obstructive sleep apnea); Stage 3 chronic kidney disease, unspecified whether stage 3a or 3b CKD (HCC) ([facility]); Class 3 severe obesity with serious comorbidity and body mass index (BMI) of 40.0 to 44.9 in adult, unspecified obesity type ([facility]) Start: 07-31-2023 End: 07-31-2023 ambulatory Rosanna Berny Other [facility] Other Start: 07-31-2023 Office outpatient vi sit 25 minutes Rosanna Berny [facility] Start: 02-03-2023 End: 02-04-2023 ambulatory NEUROCRITICAL CARE PHYSICIAN ZEE AICHHOLZ Facility:[facility] Start: 12-31-2022 End: 01-01-2023 ambulatory ROSANNA BERNY Facility:[facility] Start: 12-10-2022 End: 12-11-2022 ambulatory NEUROCRITICAL CARE PHYSICIAN ZEE AICHHOLZ Facility:[facility] Start: 08-13-2022 End: 08-14-2022 ambulatory NEUROCRITICAL CARE PHYSICIAN ZEE AICHHOLZ Facility:[facility] Start: 06-27-2022 Telephone encounter Michael Mcguire [facility] Start: 06-27-2022 End: 06-28-2022 ambulatory NEUROCRITICAL CARE PHYSICIAN ZEE AICHHOLZ [employer] Other Start: 05-28-2022 End: 05-29-2022 ambulatory ROSANNA BERNY Facility:[facility] Start: 03-29-2022 End: 03-30-2022 ambulatory NEUROCRITICAL CARE PHYSICIAN ZEE AICHHOLZ Facility:[facility] Start: 03-26-2022 End: 03-27-2022 ambulatory NEUROCRITICAL CARE PHYSICIAN ZEE AICHHOLZ Facility:[facility] Start: 03-05-2022 End: 03-06-2022 ambulatory NEUROCRITICAL CARE PHYSICIAN ZEE AICHHOLZ Facility:[facility] Start: 11-01-2021 End: 11-01-2021 ambulatory Rosanna Berny Other [facility] Other Start: 11-01-2021 Office outpatient vi sit 15 minutes Rosanna Berny [facility] Start: 10-05-2021 End: 10-05-2021 ambulatory Michael Mcguire Other [facility] [employer] Other Start: 10-05-2021 Telephone encounter Michael Mcguire [facility] Start: 09-12-2021 Office outpatient vi sit 25 minutes Michael Weissmargarita [facility] Gastroenterology Procedures Date Procedure Procedure Detail Performing Clinician Start: 09-24-2023 Mammography Zee lopez [employer] SUPERINTENDENT Work Phone: Plan of Treatment Date Care Activity Detail Author Start: 09-26-2026 Screening for malignant neoplasm of colon [facility] Start: 09-24-2024 Screening for malignant neoplasm of breast Mammogram [facility] Start: 05-30-2024 Influenza vaccination Influenza Vacc ine (#1) [facility] Comment on above: Postponed from 08/01 (Patient Refused) Start: 02-24-2024 End: 02-24-2024 Patient encounter procedure 02/24/2024 10:00 AM EDT Office Visit [facility] [address] [place] [address] Zee Stevens, PHILIPP [address] [place] [address] [facility] Start: 01-13-2024 End: 01-13-2025 Lipid 1996 panel - Serum or Plasma Lipid panel Lab Routine Mixed hyperlipidemia (CMS/HCC) Expected: 01/13/2024 (Approximate), Expires: 01/13/2025 [facility] Comment on above: Expected: 01/13/2024 (Approximate), Expires: 01/13/2025 Start: 01-13-2024 End: 01-13-2025 Thyrotropin [Units/volume] in Serum or Plasma TSH Lab Routine Hypothyroidism, unspecified type (CMS/HCC) Expected: 01/13/2024 (Approximate), Expires: 01/13/2025 [facility] Work Phone: Comment on above: Expected: 01/13/2024 (Approximate), Expires: 01/13/2025 Start: 01-13-2024 End: 01-13-2025 Thyroxine (T4) free [Mass/volume] in Serum or Plasma T4, free Lab Routine Hypothyroidism, unspecified type (CMS/HCC) Expected: 01/13/2024 (Approximate), Expires: 01/13/2025 [facility] Comment on above: Expected: 01/13/2024 (Approximate), Expires: 01/13/2025 Start: 01-13-2024 End: 01-13-2024 Patient encounter procedure 01/13/2024 9:40 AM EST Office Visit [facility] [address] [place] [phone] Zee Stevens NP [address] [place] [phone] Arrived [facility] Comment on above: Arrived Start: 08-01-2023 Influenza vaccination Influenza Vacc ine (#1) [facility] Start: 1967 Medicare Annual Wellness (AWV) Medicare Annual Wellness (AWV) [facility] Start: 1967 Screening for malignant neoplasm of colon [facility] Immunizations Immunization Date Immunization Notes Care Provider Fa [facility] 09-10-2022 influenza virus vacc ine, unspecified formulation Zee Stevens NP Work Phone: [facility] Payers Date Payer Category Payer Medicaid MEDICAID [facility] [id number] 2022-Present [phone] [address] [place] [address] Medicaid [id number] 2020 Medicare MEDICARE MEDICAR E PART B [id number] 2020-Present [address] [address] [place] [address] Medicare [id number] 1967 Unknown [id number] 1967 Unknown [id number] [id number] 1967 Unknown [id number] [id number] 1967 Unknown [id number] [id number] 1967 Unknown [id number] [id number] 1967 Unknown [id number] [id number] 1967 Unknown [id number] [id number] 1967 Unknown [id number] [id number] 1967 Unknown [id number] [id number] 1967 Unknown [id number] [id number] 1959 Medicaid [id number] 1957 Medicare [id number] Social History Date Type Detail Facility Unknown if ever smoked [facility] Other Start: 10-08-2023 End: 01-13-2024 Sex Assigned At [facility] Start: 06-18-2023 Tobacco smoking stat [facility] Smokes tobacco daily [facility] [...] (BMI) of 40.0 to 44.9 in adult ([facility]) Would like to take adipex again Pt [...] this also helps SALINAS Associated Problem(s): Hypothyroidism ([facility]) Check labs with next nephrology draw Associated [...] Medical History: Diagnosis Date Anxiety and depression ([facility]) 01/13/2024 Bilateral leg paresthesia Chronic renal disease, stage III (HCC) ([facility]) Constipation COPD (chronic obstructive pulmonary disease) ([facility]) 01/13/2024 COVID-19 virus infection DDD (degenerative disc [...] III (HCC) (CMS/HCC) Continue with Nephrology Hypothyroidism ([facility]) - Primary Check labs with next nephrology draw Relevant Orders TSH T4, free Tobacco user HLD (hyperlipidemia) ([facility]) Relevant Orders Lipid panel BMI 40.0-44.9, adult (CMS/HCC) Relevant Medications phentermine (Adipex-P) 37.5 MG tablet Other acute sinusitis Nasal and sinus exam support sinusitis Will trial atb to see if this also helps SALINAS Relevant Medications amoxicillin-clavulanate (Augmentin) 875-125 MG tablet Class 3 severe obesity with serious comorbidity and body mass index (BMI) of 40.0 to 44.9 in adult ([facility]) Would like to take adipex again Pt [...] contraindications OARRS reviewed documented in this encounter [facility] Evaluation note 07-31-2023 Note Date & Type [...] due to the PPI. Continue oral magnesium [facility] Other Evaluation note 06-27-2022 Note Date & Type Note Facility 06-27-2022 Evaluation note Encounter Date Diagnosis Assessment Notes May, Constipation (ICD-10 - K59.00) [facility] Other Evaluation note 11-01-2021 Note Date & [...] Oct, Hypokalemia (ICD-10 - E87.6) Continue spironolactone. [facility] Other Evaluation note 09-12-2021 Note Date & Type Note Facility 09-12-2021 Evaluation note Encounter Date Diagnosis Assessment Notes Aug, Irritable bowel syndrome with constipation (ICD-10 - K58.1) PT TO REPORT PROGRESS Aug, Gastroparesis (ICD-10 - K31.84) Aug, Upper abdominal pain (ICD-10 - R10.10) [facility] Other Evaluation note Note Date & Type Note Facility Evaluation note No Information [facility] Other Evaluation note Note Date & Type [...] BLADDER SUSPENSION 05/2019 Hospitalization History see above [facility] Other History general Narrative - Reported Note [...] BLADDER SUSPENSION 05/2019 Hospitalization History see above [facility] Other History general Narrative - Reported Note [...] IN LEFT HIP Hospitalization History see above [facility] Other Summary Purpose Family History No Family History Records FoundNo Family History Records FoundNo Family History Records FoundNo Family History Records FoundNo Family History Records Found Advance Directives No Advanced Directives Records FoundNo Advanced Directives Records FoundNo Advanced Directives Records FoundNo Advanced Directives Records FoundNo Advanced Directives Records Found Additional Source Comments INFORMATION SOURCE (unrecogn ized section and content) DATE CREATED AUTHOR 08/12/2019 [facility] DATE CREATED AUTHOR AUTHOR'S ORGANIZ ATION 09/16/2019 [facility] DATE CREATED AUTHOR AUTHOR'S ORGANIZ ATION 01/15/2022 [facility] DATE CREATED AUTHOR AUTHOR'S ORGANIZ ATION 02/05/2023 [facility] DATE CREATED AUTHOR AUTHOR'S ORGANIZ ATION 01/14/2024 [facility] d[facility] Specialists EPIC REASON FOR VISIT (unrecogniz ed section and content) PT HERE FOR 4-6 WEEK FOLLOW UP SHE WAS TO INCREASE LINZESS TO 145 MCG AND START ZOFRAN AND CARAFATE AT LAST OFFICE VISITClinical Acute IllnessCKDRefillsCKD and HTN Care Teams (unrecognized sec tion and content) Entry Level Installation Technician Relationship Specialty Start Date End Date Ry Tillman MD [address] [place] [address] PCP - General Family Medicine 01/12/24 Entry Level Installation Technician Relationship Specialty Start Date End Date Ry Tillman MD [address] [place] [phone] PCP - General Family Medicine [...] BE BASED ON THE PRIMARY CLINICAL RECORDS. [facility] [employer] [facility] provides no warranty or guarantee of the accuracy or completeness of information in this document.
[2024-02-17 09:49] LABS: Chol HDL Ratio 4.4; Cholesterol 162 mg/dL (<=200); HDL Cholesterol 37 mg/dL (40-60); Thyroid Stimulating Hormone 4.033 uIU/mL (0.358-3.740); Triglycerides 225 mg/dL (<=150)
[2024-02-17 09:50] LABS: Free T4 1.06 ng/dL (0.76-1.46)
== END 2024-02-17 08:28 | disposition home or self-care (01) ==
LOC: LAB 08:30
PROVIDERS: PCP Nurse Practitioner; Visit Provider Nurse Practitioner
DX: E03.9 Hypothyroidism, unspecified (principal); E78.2 Mixed hyperlipidemia
CPT/HCPCS: 36415; 80061; 84439; 84443

== ENCOUNTER 2024-04-23 08:29 | Outpatient (OUT) | payer MEDICARE, MEDICAID, SELFPAY ==
--- OUTSIDE RECORDS SUMMARY | 2024-04-23 08:40 | XMS_ITS | CCD ---
Author Organization [facility] Care Team Providers Care General Dentist/Owner Name Role Phone Michael Mcguire Unavailable Berny, Rosanna Unavailable AICHHOLZ, ABSTRACTER ZEE Primary Care Unavailable AICHHOLZ, ABSTRACTER ZEE Admitting Unavailable AICHHOLZ, ABSTRACTER ZEE Consulting Unavailable AICHHOLZ, ABSTRACTER ZEE Attending Unavailable AICHHOLZ, ABSTRACTER ZEE Attending Unavailable AICHHOLZ, ABSTRACTER ZEE Consulting Unavailable AICHHOLZ, ABSTRACTER ZEE Primary Care Unavailable AICHHOLZ, ABSTRACTER ZEE Admitting Unavailable BERNY, ROSANNA Consulting Unavailable BERNY, ROSANNA Attending Unavailable BERNY, ROSANNA Admitting Unavailable FAWWAD, HARVEY H Primary Care Unavailable AICHHOLZ, ABSTRACTER ZEE Attending Unavailable AICHHOLZ, ABSTRACTER ZEE Consulting Unavailable AICHHOLZ, ABSTRACTER ZEE Primary Care Unavailable AICHHOLZ, ABSTRACTER ZEE Admitting Unavailable AICHHOLZ, ABSTRACTER ZEE Attending Unavailable AICHHOLZ, ABSTRACTER ZEE Primary Care Unavailable AICHHOLZ, ABSTRACTER ZEE Admitting Unavailable DR MICHAEL PATTERSON V Consulting Unavailable AICHHOLZ, ABSTRACTER ZEE Consulting Unavailable AICHHOLZ, ABSTRACTER ZEE Attending Unavailable AICHHOLZ, ABSTRACTER ZEE Primary Care Unavailable AICHHOLZ, ABSTRACTER ZEE Consulting Unavailable AICHHOLZ, ABSTRACTER ZEE Admitting Unavailable BERNY, ROSANNA Admitting Unavailable BERNY, ROSANNA Consulting Unavailable BERNY, ROSANNA Attending Unavailable AICHHOLZ, ABSTRACTER ZEE Primary Care Unavailable AICHHOLZ, ABSTRACTER ZEE Attending Unavailable AICHHOLZ, ABSTRACTER ZEE Primary Care Unavailable DR MICHAEL PATTERSON V Consulting Unavailable AICHHOLZ, ABSTRACTER ZEE Admitting Unavailable AICHHOLZ, ABSTRACTER ZEE Consulting Unavailable AICHHOLZ, ABSTRACTER ZEE Attending Unavailable AICHHOLZ, ABSTRACTER ZEE Primary Care Unavailable PRAVIN STEVENS Consulting Unavailable PRAVIN STEVENS Admitting Unavailable Ry Tillman MD Primary Care Provider ZEE STEVENS Attending Unavailable ZEE STEVENS Attending Unavailable Allergies Allergy Classification Reported Allergen(s) Allergy Type Date of Onset Reaction(s) Facility (1 source) Codeine Drug Allergy 06-18-2023 [facility] Work Phone: Medications Current Medications Medication Drug Class(es) Dates Sig (Normalized) Sig (Original) [id number] 200 actuat albuterol 0.09 mg/actuat metered dose [...] Active amitriptyline hydrochloride 150 mg oral tablet (9 sources) Tricyclic Antidepressant Start: 02-26-2024 take 150 mg by mouth once daily at bedtime Amitriptyline Active 150 MG PO Daily at bedtime February 26, 2024 12:00am Start: 11-07-2023 take 1 tablet by juanita th at bedtime amitriptyline (Elavil) 150 MG tablet Indications: Polyneuropathy, unspecified Take 1 tablet (150 mg) by mouth at bedtime 30 tablet 5 11/07/2023 Active take 1 tablet by juanita th every twenty-four hours Amitriptyline HCl 150 MG 1 tablet at bedtime Orally Once a day Active amoxicillin 875 mg / clavulanate 125 mg oral tablet (6 sources) Penicillin-class Antibacterial Start: 02-26-2024 take 1 tablet by mouth twice daily Amoxicillin-Pot Clavulanate Active 1 TAB PO Twice daily February 26, 2024 12:00am Start: 01-13-2024 End: 01-23-2024 take 1 tablet [...] 04/15/2023 Active atorvastatin 80 mg oral tablet (9 sources) HMG-CoA Reductase Inhibitor Start: 12-22-2023 End: 03-21-2024 take 80 mg by mouth once daily Atorvastatin Active 80 MG PO Daily February 26, 2024 12:00am take 1 tablet by mouth once anshul [...] 10/15/2023 Active cholecalciferol 1.25 mg oral capsule (2 sources) Vitamin D Start: 02-26-2024 take 1250 ug by mouth every week Cholecalciferol (Vitamin D3) Active 1250 MCG PO every week February 26, 2024 12:00am take 1 capsule by mouth every we ek Vitamin D3 1.25 MG (77066 UT) 1 capsule Orally once a week Active ciclopirox 7.7 mg/ml topical cream (3 sources) Start: 12-09-2022 ciclopirox (Loprox) 0.77 % cream APPLY TO THE AFFECTED AREA(S) TWICE DAILY NEEDED 0 12/09/2022 Active cyclobenzaprine hydrochloride 10 mg oral tablet (9 sources) Muscle Relaxant Start: 02-26-2024 take 10 mg by mouth once daily Cyclobenzaprine Active 10 MG PO Daily February 26, 2024 12:00am take 1 tablet by mouth at bedtim e cyclobenzaprine (Flexeril) 10 MG tablet Take 10 mg by mouth at bedtime. 0 Active DULoxetine 60 mg delayed release oral capsule (9 sources) Serotonin and Norepinephrine Reuptake Inhibitor Start: 12-22-2023 End: 03-21-2024 take 1 capsule by mouth once daily Duloxetine Active 1 CAP PO Daily February 26, 2024 12:00am FreeTextSi capsule Orally Once a day; Note: Source Status: Taking; Provider: Berny Marte ( ) take 1 capsule by [facility] every twenty-four hours DULoxetine HCl 60 MG 1 capsule Orally Once a day Active ergocalciferol 1.25 mg oral capsule (7 sources) Provitamin D2 Compound Start: 12-22-2023 End: 03-15-2024 take 1 capsule by mouth every week ergocalciferol (Vitamin D2) 1.25 MG (90849 UT) capsule Indications: Vitamin D deficiency, unspecified Take 1 capsule (1.25 mg) by mouth 1 (one) time per week 12 capsule 0 12/22/2023 03/15/2024 Active take 1 capsule by mouth every we ek Vitamin D (Ergocalciferol) 50 MCG (2000 UT) 1 capsule Orally once a week Active take 1 capsule by mo ut every twenty-four hours Vitamin D (Ergocalciferol) 50 MCG (2000 UT) 1 capsule Orally Once a day Active gabapentin 600 mg oral tablet (9 sources) Anti-epileptic Agent Start: 02-26-2024 take 600 mg by mouth three times daily Gabapentin Active 600 MG PO Three times daily February 26, 2024 12:00am Start: 11-07-2023 [facility] 1 tablet [facility] every eight hours gabapentin (Neurontin) 600 MG tablet Indications: Fibromyalgia Take 1 tablet (600 mg) by mouth every 8 (eight) hours 90 tablet 5 11/07/2023 Active take 1 tablet by juanita th every eight hours Gabapentin 600 MG 1 tablet Orally three times a day Active levothyroxine sodium 0.15 mg oral capsule (9 sources) l-Thyroxine Start: 02-26-2024 take 150 ug by mouth once daily Levothyroxine Active 150 MCG PO Daily February 26, 2024 12:00am Start: 11-07-2023 take 1 tablet by juanita th before mealtime levothyroxine (Synthroid, Levoxyl) 137 MCG [...] Active magnesium oxide 400 mg oral tablet (6 sources) Start: 02-26-2024 take 1 tablet by mouth once daily Magnesium Oxide Active 1 TAB PO Daily February 26, 2024 12:00am FreeTextSig: TAKE 1 TABLET BY MOUTH DAILY; Note: Source Status: Start; Refills: 1; Qty: 90 Tablet; Provider: Berny Marte ( ) Start: 06-06-2022 take 1 tablet by juanita th in the morning magnesium oxide (Mag-Ox) 400 [...] succinate 100 mg extended release oral tablet (9 sources) beta-Adrenergic Arsenio Start: 02-26-2024 take 100 mg by mouth once daily Metoprolol Succinate Active 100 MG PO Daily February 26, 2024 12:00am Start: 05-20-2023 take 1 tablet by juanita th every twenty-four hours in the morning metoprolol [...] omeprazole 40 mg delayed release oral capsule (6 sources) Proton Pump Inhibitor Start: 02-26-2024 take 1 capsule by mouth once daily Omeprazole Active 1 CAP PO Daily February 26, 2024 12:00am FreeTextSi capsule 30 minutes before morning meal Orally Once a day; Note: Source Status: Taking; Provider: Berny Marte ( ) take 1 capsule by mouth once nithya ly Omeprazole 40 MG 1 capsule 30 minutes [...] meals. 30 tablet 0 01/13/2024 02/12/2024 Active predniSONE 20 mg oral tablet (1 source) Start: 02-26-2024 take 20 mg by mouth twice daily Prednisone Active 20 MG PO Twice daily February 26, 2024 12:00am spironolactone 50 mg oral tablet (9 sources) Aldosterone Antagonist Start: 02-26-2024 take 1 tablet by mouth once daily Spironolactone Active 1 TAB PO Daily February 26, 2024 12:00am FreeTextSig: TAKE 1 TABLET BY MOUTH DAILY; Note: Source Status: Start; Refills: 1; Qty: 90 Tablet; Provider: Berny Marte ( ) Start: 05-20-2023 take 1 tablet by juanita th in the morning spironolactone (Aldactone) 50 MG tablet Take 50 mg by mouth in the morning. 0 05/20/2023 Active Tab-A-Flavio - (4 sources) take 1 tablet by juanita th every twenty-four hours Tab-A-Flavio - 1 tablet [...] Onset: 4 01-13-2024 Chronic Chronic kidney disease (12 sources) Chronic kidney disease stage 3; Translations: [Chronic kidney disease, stage 3 (moderate)] Onset: 4 01-13-2024 Chronic Chronic kidney disease (5 sources) Chronic kidney disease; Translations: [Chronic kidney disease, stage III (moderate)] Onset: 1 Resolved: 1 Chronic obstructive pulmonary disease and bronchiectasis (3 [...] 3 01-13-2024 Chronic Fluid and electrolyte disorders (5 sources) Hypokalemia; Translations: [Hypokalemia] Onset: 1 Resolved: Episodic Headache; including migraine (3 sources) Migraine; Translations: [Migraine, unspecified, not intractable, without status migrainosus] Onset: 4 01-13-2024 Chronic Hypertension with complications and secondary hypertension (13 sources) Chronic kidney disease due to hypertension; [...] sources) Nausea; Translations: [Nausea] Episodic Nutritional deficiencies (13 sources) Vitamin D deficiency; Translations: [Vitamin D [...] nutritional; endocrine; and metabolic disorders (3 sources) Hypomagnesemia; Translations: [Hypomagnesemia] 02-26-2024 Chronic Other nutritional; endocrine; and metabolic disorders (2 sources) Hypomagnesemia; Translations: [Disorders of magnesium metabolism] Chronic Other nutritional; endocrine; and metabolic disorders (4 sources) Body mass index 40+ - severely obese; Translations: [Body mass index (BMI) 40.0-44.9, adult] Onset: 4 01-13-2024 Chronic Other nutritional; endocrine; and metabolic disorders (4 sources) Severe obesity; Translations: [Morbid (severe) obesity due to excess calories] Onset: 4 01-13-2024 Chronic Other nutritional; endocrine; and metabolic disorders (4 sources) Hyperuricemia without signs of inflammatory arthritis and tophaceous disease; Translations: [Other abnormal blood chemistry] Onset: 1 Resolved: 1 Episodic Other nutritional; endocrine; and metabolic disorders (4 sources) Hyperuricemia; Translations: [Hyperuricemia without signs of [...] Free T4 [Mass/Vol] 1.10 ng/dL Normal 0.76-1.46 [facility] Comment on above: Performed By: #### U AMIC #### [facility] [address] [address] [address] Son Higgins TSHon 02-03-2023 TSH 1.871 uIU/mL Normal 0.358-3.740 [facility] Comment on above: Performed By: #### U AMIC #### [facility] [address] [address] [address] Son Higgins PTH INTACTon 01-01-2023 PTH, Intact 18 pg/mL Normal 15-65 [facility] Comment on above: Performed By: #### P THINT #### [facility] [address] [place] [address] Dr. Son Higgins HEMOGRAM AND PLATELon 2022 Hematocrit (Bld) [Volume fraction] 47.4 % Normal 36.0-48.0 [facility] Comment on above: Performed By: #### U AMIC #### [facility] [address] [place] [address] Dr. Son Higgins Hemoglobin (Bld) [Mass/Vol] 15.5 g/dL Normal 12.0-16.0 [facility] Comment on above: Performed By: #### U AMIC #### [facility] [address] [place] [address] Dr. Son Higgins MCH (RBC) [Entitic mass] 30.3 pg Normal 26.7-34.0 [facility] Comment on above: Performed By: #### U AMIC #### [facility] [address] [place] [address] Dr. Son Higgins MCHC (RBC) [Mass/Vol] 32.7 g/dL Normal 29.9-35.2 [facility] Comment on above: Performed By: #### U AMIC #### [facility] [address] [place] [address] Dr. Son Higgins MCV (RBC) [Entitic vol] 92.6 fL Normal 81.0-99.0 [facility] Comment on above: Performed By: #### U AMIC #### [facility] [address] [place] [address] Dr. Son Higgins PLT 271 103/ul Normal 150-450 [facility] Comment on above: Performed By: #### U AMIC #### [facility] [address] [place] [address] Dr. Son Higgins RBC 5.12 106/ul Normal 4.20-5.40 [facility] Comment on above: Performed By: #### U AMIC #### [facility] [address] [place], [place] [id number] Dr. Son Higgins WBC 11.5 103/ul Critically high 4.0-11.0 [facility] Comment on above: Performed By: #### U AMIC #### [facility] [address] [address] [address] Son Higgins MAGNESIUMon 12-31-2022 Magnesium [Mass/Vol] 1.5 mg/dL Critically low 1.8-2.4 [facility] Comment on above: Performed By: #### M G, URIC, RENAL #### [facility] [address] [address] [address] Son Higgins RENAL FUNCTION PANELon 12-31 Albumin [Mass/Vol] 3.6 g/dL Normal 3.4-5.0 [facility] Comment on above: Performed By: #### M G, URIC, RENAL #### [facility] [address] [place] [address] Dr. Son Higgins Calcium [Mass/Vol] 9.5 mg/dL Normal 8.5-10.1 The [facility] Comment on above: Performed By: #### M G, URIC, RENAL #### [facility] [address] [address] [address] Son Higgins Chloride [Moles/Vol] 100 mmol/L Normal 98-107 [facility] Comment on above: Performed By: #### M G, URIC, RENAL #### [facility] [address] [address] [address] Son Higgins CO2 [Moles/Vol] 29.3 mmol/L Normal 21.0-32.0 [facility] Comment on above: Performed By: #### M G, URIC, RENAL #### [facility] [address] [address] [address] Son Higgins Creatinine [Mass/Vol] 1.32 mg/dL Critically high 0.55-1.02 [facility] Comment on above: Performed By: #### M G, URIC, RENAL #### [facility] [address] [address] [address] Son Higgins EGFR-AF SUDANESE 51 mL/min/1.73m2 Critically low >=60 [facility] Comment on above: Performed By: #### M G, URIC, RENAL #### [facility] [address] [place] [address] Dr. Son Higgins EGFR-NON AF SUDANESE 42 mL/min/1.73m2 Critically low >=60 [facility] Comment on above: Performed By: #### M G, URIC, RENAL #### [facility] [address] [place] [address] Dr. Son Higgins Glucose [Mass/Vol] 110 mg/dL Critically high 74-106 T [facility] Comment on above: Performed By: #### M G, URIC, RENAL #### [facility] [address] [place] [address] Dr. Son Higgins Phosphate [Mass/Vol] 4.3 mg/dL Normal 2.6-4.7 [facility] Comment on above: Performed By: #### M G, URIC, RENAL #### [facility] [address] [place] [address] Dr. Son Higgins Potassium [Moles/Vol] 3.5 mmol/L Normal 3.5-5.1 [facility] Comment on above: Performed By: #### M G, URIC, RENAL #### [facility] [address] [place] [address] Dr. Son Higgins Sodium [Moles/Vol] 140 mmol/L Normal 136-145 [facility] Comment on above: Performed By: #### M G, URIC, RENAL #### [facility] [address] [place] [address] Dr. Son Higgins Urea nitrogen [Mass/Vol] 12.0 mg/dL Normal 7.0-18.0 [facility] Comment on above: Performed By: #### M G, URIC, RENAL #### [facility] [address] [place] [address] Dr. Son Higgins UA RANDOM W/MICROSCOPICon BACTERIA NONE SEEN Normal NONE SEEN [facility] Comment on above: Performed By: #### U AMIC #### [facility] [address] [address] [address] Son Higgins Bilirubin Ql (U) Negative Normal NEGATIVE [facility] Comment on above: Performed By: #### U AMIC #### [facility] [address] [place] [address] Dr. Son Higgins CAST NONE SEEN Normal NONE SEEN [facility] Comment on above: Performed By: #### U AMIC #### [facility] [address] [place] [address] Dr. Son Higgins Clarity (U) CLEAR Normal CLEAR [facility] Comment on above: Performed By: #### U AMIC #### [facility] [address] [place] [address] Dr. Son Higgins Color (U) LT. YELLOW Normal YELLOW [facility] Comment on above: Performed By: #### U AMIC #### [facility] [address] [place] [address] Dr. Son Higgins Crystals LM Nom (Urine sed) NONE SEEN Normal NONE SEEN [facility] Comment on above: Performed By: #### U AMIC #### [facility] [address] [place] [address] Dr. Son Higgins Epithelial cells LM Ql (Urine sed) NONE SEEN Normal NONE SEEN /RARE [facility] Comment on above: Performed By: #### U AMIC #### [facility] [address] [place] [address] Dr. Son Higgins Glucose Ql (U) Negative Normal NEGATIVE The [facility] Comment on above: Performed By: #### U AMIC #### [facility] [address] [place] [address] Dr. Son Higgins Hemoglobin Ql (U) Negative Normal NEGATIVE The [facility] Comment on above: Performed By: #### U AMIC #### [facility] [address] [place] [address] Dr. Son Higgins Ketones Ql (U) Negative Normal NEGATIVE The [facility] Comment on above: Performed By: #### U AMIC #### [facility] [address] [place] [address] Dr. Son Higgins LEUKOCYTES Negative Normal NEGATIVE [facility] Comment on above: Performed By: #### U AMIC #### [facility] [address] [address] [address] Son Higgins MUCOUS NONE SEEN Normal NONE SEEN [facility] Comment on above: Performed By: #### U AMIC #### [facility] [address] [address] [address] Son Higgins Nitrite Ql (U) Negative Normal NEGATIVE The [facility] Comment on above: Performed By: #### U AMIC #### [facility] [address] [place] [address] Dr. Son Higgins pH (U) 5.5 [pH] Normal 5-9 [facility] Comment on above: Performed By: #### U AMIC #### [facility] [address] [place] [address] Dr. Son Higgins RBC 0-2 Normal 0-2 [facility] Comment on above: Performed By: #### U AMIC #### [facility] [address] [address] [address] Son Higgins SPEC GRAVITY <=1.005 Abnormal 1.005-<=1.025 [facility] Comment on above: Performed By: #### U AMIC #### [facility] [address] [place] [address] Dr. Son Higgins UA PROTEIN Negative Normal NEGATIVE/ TRACE [facility] Comment on above: Performed By: #### U AMIC #### [facility] [address] [address] [address] Son Higgins Urobilinogen Qn (U) 0.2 {Lopez'U}/dL Normal 0.2 - 1. 0 [facility] Comment on above: Performed By: #### U AMIC #### [facility] [address] [place] [address] Dr. Son Higgins WBC NONE SEEN Normal NONE SEEN [facility] Comment on above: Performed By: #### U AMIC #### [facility] [address] [place] [address] Dr. Son Higgins URIC ACID SERUMon 12-31-2022 Urate [Mass/Vol] 6.8 mg/dL Critically high 2.6-6.0 [facility] Comment on above: Performed By: #### M G, URIC, RENAL #### [facility] [address] [place] [address] Dr. Son Higgins URINE T PROTEIN CREAT RATIOo n 12-31-2022 UR PROT CREAT RAT 0.37 Normal [facility] Comment on above: Result Comment: Prev iously reported as: 0.30 On 12/31/2022 09:37 By [email or web address] Performed By: #### M G, URIC, RENAL #### [facility] [address] [place] [address] Dr. Son Higgins UR TOTAL PROTEIN <6.0 Normal <=12.0 [facility] Comment on above: Result Comment: Prev iously reported as: 4.8 On 12/31/2022 09:37 By [email or web address] Performed By: #### M G, URIC, RENAL #### [facility] [address] [place] [address] Dr. Son Higgins URINE CREAT 16.27 mg/dL Critically low 20.00-300.00 [facility] Comment on above: Performed By: #### M Jacqui, URIC, RENAL #### [facility] [address] [place] [address] Dr. Son Higgins VITAMIN D 25 OHon 12-31-2022 VIT D 25-OH 45.7 ng/mL Normal [facility] Comment on above: Performed By: #### V ITAD #### [facility] [address] [place] [address] Dr. Son Higgins VIT D RANGES SEE BELOW Normal [facility] Comment on above: Result Comment: <20 ng/mL Vit D deficient 20 - <30 ng/mL Vit D insufficient 30 - 100 ng/mL Vit D sufficient >100 ng/mL Potential Toxicity Performed By: #### V ITAD #### [facility] [address] [place] [address] Dr. Son Higgins CBC AUTO DIFFon 12-10-2022 BASO # 0.1 103/ul Normal 0.0-0.1 [facility] Comment on above: Performed By: #### C BC #### [facility] [address] [address] [address] Son Higgins Basophils/100 WBC (Bld) 0.9 % Normal 0.2-2.0 [facility] Comment on above: Performed By: #### C BC #### [facility] [address] [address] [address] Son Higgins EO # 0.4 103/ul Normal 0.0-0.7 [facility] Comment on above: Performed By: #### C BC #### [facility] [address] [address] [address] Son Higgins Eosinophils/100 WBC (Bld) 3.1 % Normal 0.9-7.0 [facility] Comment on above: Performed By: #### C BC #### [facility] [address] [address] [address] Son Higgins Erythrocyte distribution width (RBC) [Ratio] 15.0 % Normal 11.0-15.0 [facility] Comment on above: Performed By: #### C BC #### [facility] [address] [address] [address] Son Higgins Hematocrit (Bld) [Volume fraction] 44.5 % Normal 36.0-48.0 [facility] Comment on above: Performed By: #### C BC #### [facility] [address] [address] [address] Son Higgins Hemoglobin (Bld) [Mass/Vol] 15.0 g/dL Normal 12.0-16.0 [facility] Comment on above: Performed By: #### C BC #### [facility] [address] [address] [address] Son Higgins IG # 0.07 10e3/ul Critically high 0.00-0.03 [facility] Comment on above: Performed By: #### C BC #### [facility] [address] [address] [address] Son Higgins IG % 0.6 % Critically high 0.0-0.5 [facility] Comment on above: Performed By: #### C BC #### [facility] [address] [place] [address] Dr. Son Higgins LYMPH # 3.7 103/ul Normal 1.2-3.8 [facility] Comment on above: Performed By: #### C BC #### [facility] [address] [place] [address] Dr. Son Higgins Lymphocytes/100 WBC (Bld) 31.8 % Normal 20.5-60.0 [facility] Comment on above: Performed By: #### C BC #### [facility] [address] [place] [address] Dr. Son Higgins MANUAL DIFF REQ NO Normal [facility] Comment on above: Performed By: #### C BC #### [facility] [address] [place] [address] Dr. Son Higgins MCH (RBC) [Entitic mass] 30.4 pg Normal 26.7-34.0 [facility] Comment on above: Performed By: #### C BC #### [facility] [address] [place] [address] Dr. Son Higgins MCHC (RBC) [Mass/Vol] 33.7 g/dL Normal 29.9-35.2 [facility] Comment on above: Performed By: #### C BC #### [facility] [address] [place] [address] Dr. Son Higgins MCV (RBC) [Entitic vol] 90.3 fL Normal 81.0-99.0 [facility] Comment on above: Performed By: #### C BC #### [facility] [address] [place] [address] Dr. Son Higgins MONO # 0.6 103/ul Normal 0.3-0.8 [facility] Comment on above: Performed By: #### C BC #### [facility] [address] [place] [address] Dr. Son Higgins Monocytes/100 WBC (Bld) 5.1 % Normal 1.7-12.0 [facility] Comment on above: Performed By: #### C BC #### [facility] [address] [address] [address] Son Higgins NEUT # 6.8 103/ul Critically high 1.4-6.5 [facility] Comment on above: Performed By: #### C BC #### [facility] [address] [address] [address] Son Higgins Neutrophils/100 WBC (Bld) 58.5 % Normal 43.0-75.0 [facility] Comment on above: Performed By: #### C BC #### [facility] [address] [address] [address] Son Higgins Platelet mean volume (Bld) [Entitic vol] 10.5 fL Normal 9.5-13.5 [facility] Comment on above: Performed By: #### C BC #### [facility] [address] [place] [address] Dr. Son Higgins PLT 300 103/ul Normal 150-450 [facility] Comment on above: Performed By: #### C BC #### [facility] [address] [address] [address] Son Higgins RBC 4.93 106/ul Normal 4.20-5.40 [facility] Comment on above: Performed By: #### C BC #### [facility] [address] [address] [address] Son Higgins WBC 11.7 103/ul Critically high 4.0-11.0 [facility] Comment on above: Performed By: #### C BC #### [facility] [address] [address] [address] Son Higgins FREE T4on 12-10-2022 Free T4 [Mass/Vol] 0.99 ng/dL Normal 0.76-1.46 [facility] Comment on above: Performed By: #### M G, URIC, RENAL #### [facility] [address] [address] [address] Son Higgins LIPID PROFILEon 12-10-2022 CHOL-HDL RATIO NORM SEE BELOW Normal [facility] Comment on above: Result Comment: 3.3 - 4.4 LOW RISK 4.4 - 7.1 AVERAGE RISK 7.1 - 11.0 MODERATE RISK >11.0 HIGH RISK Performed By: #### M Jacqui URIC, RENAL #### [facility] [address] [address] [address] Son Higgins Cholesterol [Mass/Vol] 160 mg/dL Normal <=200 [facility] Comment on above: Performed By: #### M Jacqui URIC, RENAL #### [facility] [address] [address] [address] Son Higgins Cholesterol in HDL [Mass/Vol] 37 mg/dL Critically low 40-60 [facility] Comment on above: Performed By: #### M Jacqui URIC, RENAL #### [facility] [address] [address] [address] Son Higgins Cholesterol in LDL [Mass/Vol] 86.4 mg/dL Normal [facility] Comment on above: Performed By: #### M Jacqui URIC, RENAL #### [facility] [address] [address] [address] Son Higgins Cholesterol.total/C holesterol in HDL [Mass ratio] 4.3 {ratio} Normal [facility] Comment on above: Performed By: #### M Jacqui URIC, RENAL #### [facility] [address] [address] [address] Son Higgins HDL NORMAL > or = 60 mg/dl - LO W CARDIOVASCULAR RISK <40 mg/dl - HIGH CARDIOVASCULAR RISK Normal [facility] Comment on above: Performed By: #### M Jacqui URIC, RENAL #### [facility] [address] [address] [address] Son Higgins LDL CALC NORMAL SEE BELOW Normal [facility] Comment on above: Result Comment: <100 mg/dl OPTIMAL 100 - 129 mg/dl NEAR OR ABOVE OPTIMAL 130 - 159 mg/dl BORDERLINE HIGH 160 - 189 mg/dl HIGH >190 mg/dl VERY HIGH Performed By: #### M Jacqui URIC, RENAL #### [facility] [address] [address] [address] Son Higgins Triglyceride [Mass/Vol] 183 mg/dL Critically high <=150 [facility] Comment on above: Performed By: #### M G, URIC, RENAL #### [facility] [address] [address] [address] Son Higgins VLDL CALC 36.6 mg/dL Normal [facility] Comment on above: Performed By: #### M G, URIC, RENAL #### [facility] [address] [address] [address] Son Higgins PROF 14(COMP METB)on 023 Albumin [Mass/Vol] 3.7 g/dL Normal 3.4-5.0 [facility] Comment on above: Performed By: #### U AMIC #### [facility] [address] [place] [address] Dr. Son Higgins Albumin/Globulin [Mass ratio] 0.8 {ratio} Normal [facility] Comment on above: Performed By: #### U AMIC #### [facility] [address] [place] [address] Dr. Son Higgins ALP [Catalytic activity/Vol] 135 U/L Critically high 46-116 [facility] Comment on above: Performed By: #### U AMIC #### [facility] [address] [place] [address] Dr. Son Higgins ALT [Catalytic activity/Vol] 39 U/L Normal 14-59 [facility] Comment on above: Performed By: #### U AMIC #### [facility] [address] [address] [address] Son Higgins Anion gap [Moles/Vol] 14.0 mmol/L Normal [facility] Comment on above: Performed By: #### U AMIC #### [facility] [address] [address] [address] Son Higgins AST [Catalytic activity/Vol] 36 U/L Normal 15-37 [facility] Comment on above: Performed By: #### U AMIC #### [facility] [address] [address] [address] Son Higgins Bilirubin [Mass/Vol] 0.5 mg/dL Normal 0.2-1.0 [facility] Comment on above: Performed By: #### U AMIC #### [facility] [address] [address] [address] Son Higgins Calcium [Mass/Vol] 9.4 mg/dL Normal 8.5-10.1 [facility] Comment on above: Performed By: #### U AMIC #### [facility] [address] [address] [address] Son Higgins Chloride [Moles/Vol] 101 mmol/L Normal 98-107 [facility] Comment on above: Performed By: #### U AMIC #### [facility] [address] [address] [address] Son Higgins CO2 [Moles/Vol] 30.5 mmol/L Normal 21.0-32.0 [facility] Comment on above: Performed By: #### U AMIC #### [facility] [address] [address] [address] Son Higgins Creatinine [Mass/Vol] 1.40 mg/dL Critically high 0.55-1.02 [facility] Comment on above: Performed By: #### U AMIC #### [facility] [address] [address] [address] Son Higgins EGFR-AF SUDANESE 47 mL/min/1.73m2 Critically low >=60 [facility] Comment on above: Performed By: #### U AMIC #### [facility] [address] [address] [address] Son Higgins EGFR-NON AF SUDANESE 39 mL/min/1.73m2 Critically low >=60 [facility] Comment on above: Performed By: #### U AMIC #### [facility] [address] [address] [address] Son Higgins Globulin (S) [Mass/Vol] 4.9 g/dL Normal [facility] Comment on above: Performed By: #### U AMIC #### [facility] [address] [address] [address] Son Higgins Glucose [Mass/Vol] 92 mg/dL Normal 74-106 [facility] Comment on above: Performed By: #### U AMIC #### [facility] [address] [address] [address] Son Higgins Potassium [Moles/Vol] 3.5 mmol/L Normal 3.5-5.1 [facility] Comment on above: Performed By: #### U AMIC #### [facility] [address] [address] [address] Son Higgins Protein [Mass/Vol] 8.6 g/dL Critically high 6.4-8.2 [facility] Comment on above: Performed By: #### U AMIC #### [facility] [address] [address] [address] Son Higgins Sodium [Moles/Vol] 142 mmol/L Normal 136-145 [facility] Comment on above: Performed By: #### U AMIC #### [facility] [address] [address] [address] Son Higgins Urea nitrogen [Mass/Vol] 12.0 mg/dL Normal 7.0-18.0 [facility] Comment on above: Performed By: #### U AMIC #### [facility] [address] [address] [address] Son Higgins Urea nitrogen/Creatinine [Mass ratio] 8.6 mg/mg Normal [facility] Comment on above: Performed By: #### U AMIC #### [facility] [address] [address] [address] Son Higgins TSHon 12-10-2022 TSH 4.005 uIU/mL Critically high 0.358-3.740 [facility] Comment on above: Performed By: #### M G, URIC, RENAL #### [facility] [address] [address] [address] Son Higgins UA RANDOM W/MICROSCOPICon BACTERIA NONE SEEN Normal NONE SEEN [facility] Comment on above: Performed By: #### U AMIC #### [facility] [address] [address] [address] Son Higgins Bilirubin Ql (U) Negative Normal NEGATIVE [facility] Comment on above: Performed By: #### U AMIC #### [facility] [address] [address] [address] Son Higgins CAST NONE SEEN Normal NONE SEEN [facility] Comment on above: Performed By: #### U AMIC #### [facility] [address] [address] [address] Son Higgins Clarity (U) CLEAR Normal CLEAR [facility] Comment on above: Performed By: #### U AMIC #### [facility] [address] [address] [address] Son Higgins Color (U) LT. YELLOW Normal YELLOW [facility] Comment on above: Performed By: #### U AMIC #### [facility] [address] [address] [address] Son Higgins Crystals LM Nom (Urine sed) NONE SEEN Normal NONE SEEN [facility] Comment on above: Performed By: #### U AMIC #### [facility] [address] [address] [address] Son Higgins Epithelial cells LM Ql (Urine sed) FEW Abnormal NONE SEEN /RARE [facility] Comment on above: Performed By: #### U AMIC #### [facility] [address] [address] [address] Son Higgins Glucose Ql (U) Negative Normal NEGATIVE The [facility] Comment on above: Performed By: #### U AMIC #### [facility] [address] [address] [address] Son Higgins Hemoglobin Ql (U) Negative Normal NEGATIVE The [facility] Comment on above: Performed By: #### U AMIC #### [facility] [address] [address] [address] Son Higgins Ketones Ql (U) Negative Normal NEGATIVE The [facility] Comment on above: Performed By: #### U AMIC #### [facility] [address] [address] [address] Son Higgins LEUKOCYTES Negative Normal NEGATIVE [facility] Comment on above: Performed By: #### U AMIC #### [facility] [address] [address] [address] Son Higgins MUCOUS NONE SEEN Normal NONE SEEN [facility] Comment on above: Performed By: #### U AMIC #### [facility] [address] [address] [address] Son Higgins Nitrite Ql (U) Negative Normal NEGATIVE The [facility] Comment on above: Performed By: #### U AMIC #### [facility] [address] [address] [address] Son Higgins pH (U) 6.0 [pH] Normal 5-9 [facility] Comment on above: Performed By: #### U AMIC #### [facility] [address] [place] [address] Dr. Son Higgins RBC 0-2 Normal 0-2 [facility] Comment on above: Performed By: #### U AMIC #### [facility] [address] [place] [address] Dr. Son Higgins SPEC GRAVITY <=1.005 Abnormal 1.005-<=1.025 [facility] Comment on above: Performed By: #### U AMIC #### [facility] [address] [place] [address] Dr. Son Higgins UA PROTEIN Negative Normal NEGATIVE/ TRACE [facility] Comment on above: Performed By: #### U AMIC #### [facility] [address] [place] [address] Dr. oSn Higgins Urobilinogen Qn (U) 0.2 {Lopez'U}/dL Normal 0.2 - 1. 0 [facility] Comment on above: Performed By: #### U AMIC #### [facility] [address] [place] [address] Dr. Son Higgins WBC NONE SEEN Normal NONE SEEN [facility] Comment on above: Performed By: #### U AMIC #### [facility] [address] [place] [address] Dr. Son Higgins VITAMIN B12on 12-10-2022 Cobalamin (Vitamin B12) [Mass/Vol] 448.0 pg/mL Normal 193.0-986.0 [facility] Comment on above: Performed By: #### M G, URIC, RENAL #### [facility] [address] [address] [address] Son Higgins VITAMIN D 25 OHon 12-10-2022 VIT D 25-OH 48.2 ng/mL Normal [facility] Comment on above: Performed By: #### M G, URIC, RENAL #### [facility] [address] [id number] Son Higgins VIT D RANGES SEE BELOW Normal [facility] Comment on above: Result Comment: <20 ng/mL Vit D deficient 20 - <30 ng/mL Vit D insufficient 30 - 100 ng/mL Vit D sufficient >100 ng/mL Potential Toxicity Performed By: #### M G, URIC, RENAL #### [facility] [address] [address] [address] Son Higgins MG MAMM SCREEN 3D KYLEE CADon 08-13-2022 MG MAMM SCREEN 3D KYLEE CAD Patient: DAMIEN DOVER Exam Date: 08/13/2022 : 1965 Gender:F Ordering : [facility] Admission #: [id number] Family : Order #: [id number] CLICK HERE TO VIEW EXAM RADIOLOGY REPORT [...] lung cancer at age 62. LOCATION: [facility] BREAST COMPOSITION: Scattered areas fibroglandular density. [...] Patterson MD on 08/13/2022 at 13:43 Normal [facility] US THYROIDon 08-13-2022 US THYROID EXAMINATION: [...] by: MICHAEL PATTERSON Date: 2022-08-13 15:05 Normal [facility] PTH INTACTon 05-29-2022 PTH, Intact 49 pg/mL Normal 15-65 [facility] Comment on above: Performed By: #### M G, URIC, RENAL #### [facility] [address] [place] [address] Dr. Son Higgins HEMOGRAM AND PLATELon 2021 Hematocrit (Bld) [Volume fraction] 43.1 % Normal 36.0-48.0 [facility] Comment on above: Performed By: #### U AMIC #### [facility] [address] [place] [address] Dr. Son Higgins Hemoglobin (Bld) [Mass/Vol] 14.0 g/dL Normal 12.0-16.0 [facility] Comment on above: Performed By: #### U AMIC #### [facility] [address] [place] [address] Dr. Son Higgins MCH (RBC) [Entitic mass] 30.4 pg Normal 26.7-34.0 [facility] Comment on above: Performed By: #### U AMIC #### [facility] [address] [place] [address] Dr. Son Higgins MCHC (RBC) [Mass/Vol] 32.5 g/dL Normal 29.9-35.2 [facility] Comment on above: Performed By: #### U AMIC #### [facility] [address] [address] [address] Son Higgins MCV (RBC) [Entitic vol] 93.5 fL Normal 81.0-99.0 [facility] Comment on above: Performed By: #### U AMIC #### [facility] [address] [address] [address] Son Higgins PLT 218 103/ul Normal 150-450 [facility] Comment on above: Performed By: #### U AMIC #### [facility] [address] [place] [address] Dr. Son Higgins RBC 4.61 106/ul Normal 4.20-5.40 [facility] Comment on above: Performed By: #### U AMIC #### [facility] [address] [place] [address] Dr. Son Higgins WBC 9.0 103/ul Normal 4.0-11.0 [facility] Comment on above: Performed By: #### U AMIC #### [facility] [address] [place] [address] Dr. Son Higgins MAGNESIUMon 05-28-2022 Magnesium [Mass/Vol] 1.7 mg/dL Critically low 1.8-2.4 [facility] Comment on above: Performed By: #### M G, URIC, RENAL #### [facility] [address] [place] [address] Dr. Son Higgins RENAL FUNCTION PANELon 05-28 Albumin [Mass/Vol] 3.3 g/dL Critically low 3.4-5.0 [facility] Comment on above: Performed By: #### M G, URIC, RENAL #### [facility] [address] [place] [address] Dr. Son Higgins Calcium [Mass/Vol] 8.9 mg/dL Normal 8.5-10.1 [facility] Comment on above: Performed By: #### M G, URIC, RENAL #### [facility] [address] [place] [address] Dr. Son Higgins Chloride [Moles/Vol] 107 mmol/L Normal 98-107 [facility] Comment on above: Performed By: #### M G, URIC, RENAL #### [facility] [address] [address] [address] Son Higgins CO2 [Moles/Vol] 29.1 mmol/L Normal 21.0-32.0 [facility] Comment on above: Performed By: #### M G, URIC, RENAL #### [facility] [address] [address] [address] Son Higgins Creatinine [Mass/Vol] 1.36 mg/dL Critically high 0.55-1.02 [facility] Comment on above: Performed By: #### M Jacqui, URIC, RENAL #### [facility] [address] [place] [address] Dr. Son Higgins EGFR-AF SUDANESE 49 mL/min/1.73m2 Critically low >=60 [facility] Comment on above: Performed By: #### M Jacqui, URIC, RENAL #### [facility] [address] [place] [address] Dr. Son Higgins EGFR-NON AF SUDANESE 41 mL/min/1.73m2 Critically low >=60 [facility] Comment on above: Performed By: #### M G, URIC, RENAL #### [facility] [address] [place] [address] Dr. Son Higgins Glucose [Mass/Vol] 91 mg/dL Normal 74-106 [facility] Comment on above: Performed By: #### M G, URIC, RENAL #### [facility] [address] [place] [address] Dr. Son Higgins Phosphate [Mass/Vol] 3.6 mg/dL Normal 2.6-4.7 [facility] Comment on above: Performed By: #### M G, URIC, RENAL #### [facility] [address] [place] [address] Dr. Son Higgins Potassium [Moles/Vol] 3.8 mmol/L Normal 3.5-5.1 [facility] Comment on above: Performed By: #### M G, URIC, RENAL #### [facility] [address] [address] [address] Son Higgins Sodium [Moles/Vol] 143 mmol/L Normal 136-145 [facility] Comment on above: Performed By: #### M G, URIC, RENAL #### [facility] [address] [place] [address] Dr. Son Higgins Urea nitrogen [Mass/Vol] 9.0 mg/dL Normal 7.0-18.0 [facility] Comment on above: Performed By: #### M G, URIC, RENAL #### [facility] [address] [place] [address] Dr. Son Higgins UA RANDOM W/MICROSCOPICon BACTERIA NONE SEEN Normal NONE SEEN [facility] Comment on above: Performed By: #### M G, URIC, RENAL #### [facility] [address] [place] [address] Dr. Son Higgins Bilirubin Ql (U) Negative Normal NEGATIVE [facility] Comment on above: Performed By: #### M G, URIC, RENAL #### [facility] [address] [place] [address] Dr. Son Higgins CAST NONE SEEN Normal NONE SEEN [facility] Comment on above: Performed By: #### M G, URIC, RENAL #### [facility] [address] [place] [address] Dr. Son Higgins Clarity (U) CLEAR Normal CLEAR [facility] Comment on above: Performed By: #### M G, URIC, RENAL #### [facility] [address] [place] [address] Dr. Son Higgins Color (U) LT. YELLOW Normal YELLOW [facility] Comment on above: Performed By: #### M G, URIC, RENAL #### [facility] [address] [place] [address] Dr. Son Higgins Crystals LM Nom (Urine sed) NONE SEEN Normal NONE SEEN [facility] Comment on above: Performed By: #### M G, URIC, RENAL #### [facility] [address] [place] [address] Dr. Son Higgins Epithelial cells LM Ql (Urine sed) RARE Normal NONE SEEN /RARE [facility] Comment on above: Performed By: #### M G, URIC, RENAL #### [facility] [address] [address] [address] Son Higgins Glucose Ql (U) Negative Normal NEGATIVE The [facility] Comment on above: Performed By: #### M G, URIC, RENAL #### [facility] [address] [address] [address] Son Higgins Hemoglobin Ql (U) Negative Normal NEGATIVE The [facility] Comment on above: Performed By: #### M G, URIC, RENAL #### [facility] [address] [address] [address] Son Higgins Ketones Ql (U) Negative Normal NEGATIVE The [facility] Comment on above: Performed By: #### M G, URIC, RENAL #### [facility] [address] [place] [address] Dr. Son Higgins LEUKOCYTES Negative Normal NEGATIVE [facility] Comment on above: Performed By: #### M G, URIC, RENAL #### [facility] [address] [address] [address] Son Higgins MUCOUS NONE SEEN Normal NONE SEEN [facility] Comment on above: Performed By: #### M G, URIC, RENAL #### [facility] [address] [address] [address] Son Higgins Nitrite Ql (U) Negative Normal NEGATIVE The [facility] Comment on above: Performed By: #### M G, URIC, RENAL #### [facility] [address] [address] [address] Son Higgins pH (U) 6.0 [pH] Normal 5-9 [facility] Comment on above: Performed By: #### M G, URIC, RENAL #### [facility] [address] [place] [address] Dr. Son Higgins RBC NONE SEEN Abnormal 0-2 [facility] Comment on above: Performed By: #### M G, URIC, RENAL #### [facility] [address] [address] [address] Son Higgins SPEC GRAVITY <=1.005 Abnormal 1.005-<=1.025 [facility] Comment on above: Performed By: #### M G, URIC, RENAL #### [facility] [address] [address] [address] Son Higgins UA PROTEIN Negative Normal NEGATIVE/ TRACE [facility] Comment on above: Performed By: #### M G, URIC, RENAL #### [facility] [address] [address] [address] Son Higgins Urobilinogen Qn (U) 0.2 {Lopez'U}/dL Normal 0.2 - 1. 0 [facility] Comment on above: Performed By: #### M G, URIC, RENAL #### [facility] [address] [place] [address] Dr. Son Higgins WBC NONE SEEN Normal NONE SEEN [facility] Comment on above: Performed By: #### M G, URIC, RENAL #### [facility] [address] [place] [address] Dr. Son Higgins URIC ACID SERUMon 05-28-2022 Urate [Mass/Vol] 6.7 mg/dL Critically high 2.6-6.0 [facility] Comment on above: Performed By: #### M G, URIC, RENAL #### [facility] [address] [place] [address] Dr. Son Higgins URINE T PROTEIN CREAT RATIOo n 05-28-2022 UR TOTAL PROTEIN <6.0 Normal <=12.0 [facility] Comment on above: Performed By: #### U RTPCR #### [facility] [address] [place] [address] Dr. Son Higgins URINE CREAT 9.79 mg/dL Critically low 20.00-300.00 [facility] Comment on above: Performed By: #### U RTPCR #### [facility] [address] [place] [address] Dr. Son Higgins VITAMIN D 25 OHon 05-28-2022 VIT D 25-OH 38.3 ng/mL Normal [facility] Comment on above: Performed By: #### U AMIC #### [facility] [address] [place] [address] Dr. Son Higgins VIT D RANGES SEE BELOW Normal [facility] Comment on above: Result Comment: <20 ng/mL Vit D deficient 20 - <30 ng/mL Vit D insufficient 30 - 100 ng/mL Vit D sufficient >100 ng/mL Potential Toxicity Performed By: #### U AMIC #### [facility] [address] [place] [address] Dr. Son Higgins US SINGLE QUAD RT [...] MICHAEL PATTERSON Date: 2022-03-29 10:00 Normal [facility] LIVER PROFILEon 03-26-2022 Albumin [Mass/Vol] 3.6 g/dL Normal 3.4-5.0 [facility] Comment on above: Performed By: #### U AMIC #### [facility] [address] [place] [address] Dr. Son Higgins Albumin/Globulin [Mass ratio] 0.8 {ratio} Normal [facility] Comment on above: Performed By: #### U AMIC #### [facility] [address] [place] [address] Dr. Son Higgins ALP [Catalytic activity/Vol] 141 U/L Critically high 46-116 [facility] Comment on above: Performed By: #### U AMIC #### [facility] [address] [place] [address] Dr. Son Higgins ALT [Catalytic activity/Vol] 50 U/L Normal 14-59 [facility] Comment on above: Performed By: #### U AMIC #### [facility] [address] [address] [address] Son Higgins AST [Catalytic activity/Vol] 32 U/L Normal 15-37 [facility] Comment on above: Performed By: #### U AMIC #### [facility] [address] [address] [address] Son Higgins BILI, CONJUGATED 0.1 mg/dL Normal 0.0-0.2 [facility] Comment on above: Performed By: #### U AMIC #### [facility] [address] [address] [address] Son Higgins Bilirubin [Mass/Vol] 0.5 mg/dL Normal 0.2-1.0 [facility] Comment on above: Performed By: #### U AMIC #### [facility] [address] [address] [address] Son Higgins Globulin (S) [Mass/Vol] 4.4 g/dL Normal [facility] Comment on above: Performed By: #### U AMIC #### [facility] [address] [address] [address] Son Higgins Protein [Mass/Vol] 8.0 g/dL Normal 6.1-8.2 [facility] Comment on above: Performed By: #### U AMIC #### [facility] [address] [address] [address] Son Higgins CBC AUTO DIFFon 03-05-2022 BASO # 0.1 103/ul Normal 0.0-0.1 [facility] Comment on above: Performed By: #### C BC #### [facility] [address] [place] [address] Dr. Son Higgins Basophils/100 WBC (Bld) 0.6 % Normal 0.2-2.0 [facility] Comment on above: Performed By: #### C BC #### [facility] [address] [place] [address] Dr. Son Higgins EO # 0.3 103/ul Normal 0.0-0.7 [facility] Comment on above: Performed By: #### C BC #### [facility] [address] [place] [address] Dr. Son Higgins Eosinophils/100 WBC (Bld) 3.2 % Normal 0.9-7.0 [facility] Comment on above: Performed By: #### C BC #### [facility] [address] [place] [address] Dr. Son Higgins Erythrocyte distribution width (RBC) [Ratio] 15.9 % Critically high 11.0-15.0 [facility] Comment on above: Performed By: #### C BC #### [facility] [address] [place] [address] Dr. Son Higgins Hematocrit (Bld) [Volume fraction] 43.6 % Normal 36.0-48.0 [facility] Comment on above: Performed By: #### C BC #### [facility] [address] [place] [address] Dr. Son Higgins Hemoglobin (Bld) [Mass/Vol] 14.1 g/dL Normal 12.0-16.0 [facility] Comment on above: Performed By: #### C BC #### [facility] [address] [place] [address] Dr. Son Higgins IG # 0.04 10e3/ul Critically high 0.00-0.03 [facility] Comment on above: Performed By: #### C BC #### [facility] [address] [place] [address] Dr. Son Higgins IG % 0.4 % Normal 0.0-0.5 [facility] Comment on above: Performed By: #### C BC #### [facility] [address] [place] [address] Dr. Son Higgins LYMPH # 2.9 103/ul Normal 1.2-3.8 [facility] Comment on above: Performed By: #### C BC #### [facility] [address] [place] [address] Dr. Son Higgins Lymphocytes/100 WBC (Bld) 29.5 % Normal 20.5-60.0 [facility] Comment on above: Performed By: #### C BC #### [facility] [address] [place] [address] Dr. Son Higgins MANUAL DIFF REQ NO Normal [facility] Comment on above: Performed By: #### C BC #### [facility] [address] [place] [address] Dr. Son Higgins MCH (RBC) [Entitic mass] 30.3 pg Normal 26.7-34.0 [facility] Comment on above: Performed By: #### C BC #### [facility] [address] [place] [address] Dr. Son Higgins MCHC (RBC) [Mass/Vol] 32.3 g/dL Normal 29.9-35.2 [facility] Comment on above: Performed By: #### C BC #### [facility] [address] [place] [address] Dr. Son Higgins MCV (RBC) [Entitic vol] 93.6 fL Normal 81.0-99.0 [facility] Comment on above: Performed By: #### C BC #### [facility] [address] [place] [address] Dr. Son Higgins MONO # 0.5 103/ul Normal 0.3-0.8 [facility] Comment on above: Performed By: #### C BC #### [facility] [address] [place] [address] Dr. Son Higgins Monocytes/100 WBC (Bld) 4.8 % Normal 1.7-12.0 [facility] Comment on above: Performed By: #### C BC #### [facility] [address] [place] [address] Dr. Son Higgins NEUT # 6.1 103/ul Normal 1.4-6.5 [facility] Comment on above: Performed By: #### C BC #### [facility] [address] [place] [address] Dr. Son Higgins Neutrophils/100 WBC (Bld) 61.5 % Normal 43.0-75.0 [facility] Comment on above: Performed By: #### C BC #### [facility] [address] [place] [address] Dr. Son Higgins Platelet mean volume (Bld) [Entitic vol] 10.3 fL Normal 9.5-13.5 [facility] Comment on above: Performed By: #### C BC #### [facility] [address] [place] [address] Dr. Son Higgins PLT 225 103/ul Normal 150-450 [facility] Comment on above: Performed By: #### C BC #### [facility] [address] [place] [address] Dr. Son Higgins RBC 4.66 106/ul Normal 4.20-5.40 [facility] Comment on above: Performed By: #### C BC #### [facility] [address] [place] [address] Dr. Son Higgins WBC 9.9 103/ul Normal 4.0-11.0 [facility] Comment on above: Performed By: #### C BC #### [facility] [address] [place] [address] Dr. Son Higgins FREE T4on 03-05-2022 Free T4 [Mass/Vol] 1.07 ng/dL Normal 0.78-2.19 [facility] Comment on above: Performed By: #### M G, URIC, RENAL #### [facility] [address] [place] [address] Dr. Son Higgins PROF 14(COMP METB)on 022 Albumin [Mass/Vol] 3.4 g/dL Normal 3.4-5.0 [facility] Comment on above: Performed By: #### M G, URIC, RENAL #### [facility] [address] [place] [address] Dr. Son Higgins Albumin/Globulin [Mass ratio] 0.8 {ratio} Normal [facility] Comment on above: Performed By: #### M G, URIC, RENAL #### [facility] [address] [place] [address] Dr. Son Higgins ALP [Catalytic activity/Vol] 134 U/L Critically high 46-116 [facility] Comment on above: Performed By: #### M G, URIC, RENAL #### [facility] [address] [place] [address] Dr. Son Higgins ALT [Catalytic activity/Vol] 35 U/L Normal 14-59 [facility] Comment on above: Performed By: #### M G, URIC, RENAL #### [facility] [address] [place] [address] Dr. Son Higgins Anion gap [Moles/Vol] 10.8 mmol/L Normal [facility] Comment on above: Performed By: #### M G, URIC, RENAL #### [facility] [address] [place] [address] Dr. Son Higgins AST [Catalytic activity/Vol] 22 U/L Normal 15-37 [facility] Comment on above: Performed By: #### M G, URIC, RENAL #### [facility] [address] [place] [address] Dr. Son Higgins Bilirubin [Mass/Vol] 0.5 mg/dL Normal 0.2-1.3 [facility] Comment on above: Performed By: #### M G, URIC, RENAL #### [facility] [address] [place] [address] Dr. Son Higgins Calcium [Mass/Vol] 9.3 mg/dL Normal 8.5-10.1 [facility] Comment on above: Performed By: #### M G, URIC, RENAL #### [facility] [address] [place] [address] Dr. Son Higgins Chloride [Moles/Vol] 105 mmol/L Normal 98-107 [facility] Comment on above: Performed By: #### M G, URIC, RENAL #### [facility] [address] [place] [address] Dr. Son Higgins CO2 [Moles/Vol] 26.9 mmol/L Normal 22.0-30.0 [facility] Comment on above: Performed By: #### M G, URIC, RENAL #### [facility] [address] [place] [address] Dr. Son Higgins Creatinine [Mass/Vol] 1.32 mg/dL Critically high 0.52-1.04 [facility] Comment on above: Performed By: #### M G, URIC, RENAL #### [facility] [address] [place] [address] Dr. Son Higgins EGFR-AF SUDANESE 51 mL/min/1.73m2 Critically low >=60 [facility] Comment on above: Performed By: #### M G, URIC, RENAL #### [facility] [address] [place] [address] Dr. Son Higgins EGFR-NON AF SUDANESE 42 mL/min/1.73m2 Critically low >=60 [facility] Comment on above: Performed By: #### M G, URIC, RENAL #### [facility] [address] [place] [address] Dr. Son Higgins Globulin (S) [Mass/Vol] 4.4 g/dL Normal [facility] Comment on above: Performed By: #### M G, URIC, RENAL #### [facility] [address] [place] [address] Dr. Son Higgins Glucose [Mass/Vol] 92 mg/dL Normal 74-106 [facility] Comment on above: Performed By: #### M G, URIC, RENAL #### [facility] [address] [place] [address] Dr. Son Higgins Potassium [Moles/Vol] 3.7 mmol/L Normal 3.4-5.0 [facility] Comment on above: Performed By: #### M G, URIC, RENAL #### [facility] [address] [place] [address] Dr. Son Higgins Protein [Mass/Vol] 7.8 g/dL Normal 6.1-8.2 [facility] Comment on above: Performed By: #### M G, URIC, RENAL #### [facility] [address] [address] [address] Son Higgins Sodium [Moles/Vol] 139 mmol/L Normal 137-145 [facility] Comment on above: Performed By: #### M G, URIC, RENAL #### [facility] [address] [place] [address] Dr. Son Higgins Urea nitrogen [Mass/Vol] 11.0 mg/dL Normal 7.0-18.0 [facility] Comment on above: Performed By: #### M G, URIC, RENAL #### [facility] [address] [place] [address] Dr. Son Higgins Urea nitrogen/Creatinine [Mass ratio] 8.3 mg/mg Normal [facility] Comment on above: Performed By: #### M G, URIC, RENAL #### [facility] [address] [place] [address] Dr. Son Higgins TSHon 03-05-2022 TSH 1.935 uIU/mL Normal 0.470-4.680 [facility] Comment on above: Performed By: #### M G, URIC, RENAL #### [facility] [address] [place] [address] Dr. Son Higgins TSH RANGE SEE BELOW Normal [facility] Comment on above: Result Comment: <0.3 4 UIU/ml HYPERTHYROID 0.34-5.60 UIU/ml EUTHYROID >5.60 UIU/ml HYPOTHYROID Performed By: #### M G, URIC, RENAL #### [facility] [address] [place] [address] Dr. Son Higgins VITAMIN B12on 03-05-2022 Cobalamin (Vitamin B12) [Mass/Vol] 361.0 pg/mL Normal 239.0-931.0 [facility] Comment on above: Performed By: #### M G, URIC, RENAL #### [facility] [address] [place] [address] Dr. Son Higgins VITAMIN D 25 OHon 03-05-2022 VIT D 25-OH 39.4 ng/mL Normal [facility] Comment on above: Performed By: #### M G, URIC, RENAL #### [facility] [address] [place] [address] Dr. Son Higgins VIT D RANGES SEE BELOW Normal [facility] Comment on above: Result Comment: <20 ng/mL Vit D deficient 20 - <30 ng/mL Vit D insufficient 30 - 100 ng/mL Vit D sufficient >100 ng/mL Potential Toxicity Performed By: #### M G, URIC, RENAL #### [facility] [id number] Son BRUCE gastric emptying studyon 07-03-2021 NM gastric emptying study [facility] [place] [address] [place] [address] Nuclear Medicine Report Signed Patient: Damien Dover MR#: [id number] : 1965 Acct:[id number] Age/Sex: 55 / F ADM Date: 07/03/21 Loc: [place] Room: Type: [facility] Attending Dr: Michael Mcguire DO Ordering Provider: [...] Lex Velasquez M.D.07/03/2021 10:58 AM Dictation Location: [place] [address] Transcribed By: [facility] 07/03/21 1058 Dictated By: Lex Velasquez DO 07/03/21 1054 Signed By: 07/03/21 1058 Normal [facility] BASIC METABOLIC PANELon 09-0 Anion gap [Moles/Vol] 14 mmol/L Normal 10 - 20 [facility] Comment on above: Performed By: #### B MP #### [address] [address] Calcium [Mass/Vol] 9.7 mg/dL Normal 8.6 - 10.3 [facility] Comment on above: Performed By: #### B MP #### [address] [address] Chloride [Moles/Vol] 103 mmol/L Normal 98 - 107 [facility] Comment on above: Performed By: #### B MP #### [address] [address] Creatinine [Mass/Vol] 1.20 mg/dL High 0.50 - 1.05 [facility] Comment on above: Performed By: #### B MP #### [address] [address] GFR- AM. 57 mL/min/1.73m2 Abnormal >60 [facility] Comment on above: Result Comment: CALC ULATIONS OF ESTIMATED GFR ARE PERFORMED USING THE MDRD STUDY EQUATION FOR THE IDMS-TRACEABLE CREATININE METHODS. CLIN CHEM 2007;53:766-72 Performed By: #### B MP #### [address] [address] GFR-NON AM. 47 mL/min/1.73m2 Abnormal >60 [facility] Comment on above: Performed By: #### B MP #### [address] [address] Glucose [Mass/Vol] 108 mg/dL High 74 - 99 [facility] Comment on above: Performed By: #### B MP #### [address] [address] HCO3 (Bld) [Moles/Vol] 27 mmol/L Normal 21 - 32 [facility] Comment on above: Performed By: #### B MP #### [address] [address] Potassium [Moles/Vol] 3.6 mmol/L Normal 3.5 - 5.3 [facility] Comment on above: Performed By: #### B MP #### [address] [address] Sodium [Moles/Vol] 140 mmol/L Normal 136 - 145 [facility] Comment on above: Performed By: #### B MP #### [address] [address] Urea nitrogen [Mass/Vol] 11 mg/dL Normal 6 - 23 [facility] Comment on above: Performed By: #### B MP #### [address] [address] CBC AND DIFFERENTIALon 08-09 % AUTOMATED IMMATURE GRAN 0.2 % Normal 0.0 - 0.9 [facility] Comment on above: Result Comment: Perc ent differential counts (%) should be interpreted in the context of the absolute cell counts (cells/L). Performed By: #### C BCDF #### [address] [address] Basophils (Bld) [#/Vol] 0.08 10*3/uL Normal 0.00 - 0.10 [facility] Comment on above: Performed By: #### C BCDF #### [address] [address] Basophils/100 WBC (Bld) 0.8 % Normal 0.0 - 2.0 [facility] Comment on above: Performed By: #### C BCDF #### [address] [address] Eosinophils (Bld) [#/Vol] 0.61 10*3/uL Normal 0.00 - 0.70 [facility] Comment on above: Performed By: #### C BCDF #### [address] [address] Eosinophils/100 WBC (Bld) 6.4 % Normal 0.0 - 6.0 [facility] Comment on above: Performed By: #### C BCDF #### [address] [address] Lymphocytes (Bld) [#/Vol] 3.25 10*3/uL Normal 1.20 - 4.80 [facility] Comment on above: Performed By: #### C BCDF #### [address] [address] Lymphocytes/100 WBC (Bld) 33.9 % Normal 13.0 - 44.0 [facility] Comment on above: Performed By: #### C BCDF #### [address] [place] [address] Monocytes (Bld) [#/Vol] 0.62 10*3/uL Normal 0.10 - 1.00 [facility] Comment on above: Performed By: #### C BCDF #### [facility] [address] [place] [address] Monocytes/100 WBC (Bld) 6.5 % Normal 2.0 - 10.0 [facility] Comment on above: Performed By: #### C BCDF #### [facility] [address] [place] [address] Neutrophils (Bld) [#/Vol] 5.00 10*3/uL Normal 1.20 - 7.70 [facility] Comment on above: Performed By: #### C BCDF #### [facility] [address] [place] [address] Neutrophils/100 WBC (Bld) 52.2 % Normal 40.0 - 80.0 [facility] Comment on above: Performed By: #### C BCDF #### [facility] [address] [place] [address] Erythrocyte distribution width (RBC) [Ratio] 16.1 % High 11.5 - 14.5 [facility] Comment on above: Performed By: #### C BCDF #### [address] [address] Hematocrit (Bld) [Volume fraction] 41.2 % Normal 36.0 - 46.0 [facility] Comment on above: Performed By: #### C BCDF #### [facility] [address] [place] [address] Hemoglobin (Bld) [Mass/Vol] 13.2 g/dL Normal 12.0 - 16.0 [facility] Comment on above: Performed By: #### C BCDF #### [address] [address] MCHC (RBC) [Mass/Vol] 32.0 g/dL Normal 32.0 - 36.0 [facility] Comment on above: Performed By: #### C BCDF #### [address] [place] [address] MCV (RBC) [Entitic vol] 91 fL Normal 80 - 100 [facility] Comment on above: Performed By: #### C BCDF #### [address] [address] Platelets (Bld) [#/Vol] 224 10*3/uL Normal 150 - 450 [facility] Comment on above: Performed By: #### C BCDF #### [address] [address] RBC (Bld) [#/Vol] 4.52 x10E12/L Normal 4.00 - 5.20 [facility] Comment on above: Performed By: #### C BCDF #### [address] [address] WBC (Bld) [#/Vol] 9.6 10*3/uL Normal 4.4 - 11.3 [facility] Comment on above: Performed By: #### C BCDF #### [address] [address] DUPLEX LOWER EXTREMITY VEINS , RIGHT, UNILATERALon 08-09-2019 DUPLEX LOWER EXTREMITY VEINS, RIGHT, UNILATERAL Patient Name: DAMIEN DOVER STUDY: DUPLEX LOWER EXTREMITY VEINS, RIGHT, UNILATERAL; 08/09/2019 3:08 pm INDICATION: rle swelling and rt thigh numbness. COMPARISON: None. ACCESSION NUMBER(S): [id number] ORDERING CLINICIAN: MARLEY MONAE TECHNIQUE: Vascular ultrasound [...] Electronically signed by: MICHELLE BHARDWAJ MD Normal [facility] PT/INRon 08-09-2019 INR Coag (PPP) [Relative time] 1.0 {INR} Normal 0.9 - 1.1 [facility] Comment on above: Performed By: #### P TINR #### [facility] [address] [place] [address] PT Coag (PPP) [Time] 11.4 s Normal 9.7 - 12.7 [facility] Comment on above: Performed By: #### P TINR #### [facility] [address] [place] [address] Provider Note - ED v2on Provider Note [...] followed by a neurologist Dr. Donohue at [facility] in [place] she is pending epidural shots in her [...] patient is a local resident. [Lives in [facility] MEDICATIONS: Nursing notes were reviewed. 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 Data Referenced From Triage - ED 09-Aug-2019 13:23 Normal [facility] Risk Screen - Adult Emergenc yon 08-09-2019 [...] Learning Preferenceswritten material Cultural Considerationsnone Developmental Considerationsnone Nondenominational Considerationsnone Learning Assessment (Other Learner): Learning Assessment (Other Learner): Other learner availableno Pressure Injury/TB/Substance: Pressure Injury: Do you have a coughno Admission Risk Screen: Significant IndicatorsComplete CAGE: CAGE: Is this an injured patient at a Trauma Center ([facility]): no Electronic Signatures: Kimberly Reyes (BRYANT) (Signed 09-Aug-2019 14:09) Authored: Preferred Language, Advanced Directives, Family Violence Adult, Learning Assessment (Patient), Learning Assessment (Other Learner), Pressure Injury/TB/Substance, CAGE Last Updated: 09-Aug-2019 14:09 by Kimberly Reyes (BRYANT) Normal [facility] Triage - EDon 08-09-2019 Triage - ED [...] obeys commands Best Verbal Response: (V5) oriented [place] Score: 15 Cough lasting greater than 3 weeks: no Patient immunocompromised related to: N/A Travel outside of [facility]: no Allergies: no [employer] 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 CELLS 3+ /HPF Normal [facility] Comment on above: Performed By: #### U AMIC #### [address] [address] WBC (Bld) [#/Vol] 0-5 Normal 0-5 [facility] Comment on above: Performed By: #### U AMIC #### [address] [address] URINALYSIS WITH REFLEX TO CU LTUREon 08-09-2019 Appearance (U) HAZY Normal CLEAR [facility] Comment on above: Performed By: #### U ARFX #### [address] [address] Bilirubin (U) [Mass/Vol] Negative Normal NEGATIVE [facility] [facility] Comment on above: Performed By: #### U ARFX #### [address] [address] BLOOD Negative Normal NEGATIVE [facility] Comment on above: Performed By: #### U ARFX #### [address] [address] Color (U) YELLOW Normal STRAW,YELLOW [facility] Comment on above: Performed By: #### U ARFX #### [address] [address] Glucose [Mass/Vol] Negative Normal NEGATIVE [facility] Comment on above: Performed By: #### U ARFX #### [address] [address] Ketones Ql (U) Negative Normal NEGATIVE [facility] Comment on above: Performed By: #### U ARFX #### [address] [address] Leukocyte esterase Test strip Ql (U) TRACE Abnormal NEGATIVE [facility] Comment on above: Performed By: #### U ARFX #### [address] [address] Nitrite Ql (U) Negative Normal NEGATIVE [facility] Comment on above: Performed By: #### U ARFX #### [address] [address] pH (Bld) 7.0 Normal 5.0 - 8.0 [facility] Comment on above: Performed By: #### U ARFX #### [address] [address] Protein (U) [Mass/Vol] Negative Normal NEGATIVE [facility] Comment on above: Performed By: #### U ARFX #### [address] [address] Specific gravity (U) [Rel density] 1.004 Low 1.005 - 1.035 [facility] Comment on above: Performed By: #### U ARFX #### [facility] [address] [place] [address] Urobilinogen Qn (U) <2.0 Normal 0.0 - 1.9 [facility] Comment on above: Performed By: #### U ARFX #### [facility] [address] [place] [address] URINE CULTURE,BACTERIALon URINE CULTURE,BACTERIAL PATIENT: DAMIEN DOVER [facility]#: [id number] : 69 AGE: SEX: F ORDERED BY: MARLEY MONAE SOURCE: URINE COLLECTED: 08/09/19 14:55 ANTIBIOTICS AT MARY LOU.: RECEIVED : 08/10/19 01:11 SITE: R E S U L T S URINE CULTURE,BACTERIAL FINAL 08/10/19 21:42 NO SIGNIFICANT GROWTH. Normal [facility] Comment on above: Performed By: #### U RINC #### [facility] [address] [place] [address] Coding Summary.on 11-09-2018 Coding Summary. CODING DATE: 018 [facility] STATUS: Home (Routine DC) PAYOR: Medicaid EAPG [...] Rocha Revised Date Saved: 11/09/2018 11:49 am [facility] Main OR Intraoperative Recor ramona 11-05-2018 Main OR Intraoperative Record IntraOp Document Type FTURO Summary Primary Physician: Brandon Mahmood Jr., MD Finalized Date/Time: 11/05/18 16:12:35 Pt. Name: DAMIEN DOVER Rubina Toscano/Sex: 1965 Female Med Rec #: [id number] Physician: Brandon Mahmood Jr., MD Financial #: [id number] Pt. Type: O Room/Bed: / Admit/Disch: 11/05/18 15:16:33 - Institution: Case Times FTURO Entry 1 Patient Times In Room 11/05/18 16:02:00 Out Room 11/05/18 16:13:00 Procedure Times Start 11/05/18 16:05:00 Stop 11/05/18 16:07:00 Anesthesia Times Last Modified By: Erin HOWARD, BRYANTOR, Shanna Oshea 11/05/18 16:12:20 Case Attendance FTURO Entry 1 Entry 2 Entry 3 Case Attendee Brandon Mahmood Jr., MD RN, CNOR, JeniferDorie Caruso BANK TELLER MACHINE MECHANIC, Shasha Kowalski Role Performed Surgeon - Primary Locomotive Inspector - Primary Scrub - Primary Time In 11/05/18 16:02:00 11/05/18 16:02:00 11/05/18 16:02:00 Time Out 11/05/18 16:13:00 11/05/18 16:13:00 11/05/18 16:13:00 Procedure CYSTOSCOPY LOCAL WITH CYSTOSCOPY LOCAL WITH CYSTOSCOPY LOCAL WITH URETHRAL DILATION(.) URETHRAL DILATION(.) URETHRAL DILATION(.) Comments Last Modified By: Erin RN, CNOR, JeniferDorie Khan RN, CNOR, Shanna Khan RN, CNOR, Jenifer 11/05/18 16:12:21 11/05/18 16:12:21 11/05/18 16:12:21 Surgical [...] Position Verified Availability Equipment, Medication Time Out Timoteo Swann MD, Brandon Barajas, Verified (If Participants MISHA Khan RN, Lou Applicable) Zuly Oshea CST, Shasha Kowalski Time Out Complete 11/05/18 16:03:00 Allergies Reviewed? Yes Allergies Reviewed Self/Patient With Body Position Frog Legged Prep Area perinium Prep Agents Betadine Solution Skin. Condition Intact, [employer], Warm, and Dry Additional None Specimens Collected [...] MISHA Khan RN, Lou Ann 11/05/18 16:12 [facility] Main OR Preoperative Recordo n 11-05-2018 Main OR Preoperative Record Holding Area Document Type FTURO Summary Primary Physician: Brandon Mahmood Jr., MD Finalized Date/Time: 11/05/18 16:12:55 Pt. Name: DAMIEN DOVER /Sex: 1965 Female Med Rec #: [id number] Physician: Brandon Mahmood Jr., MD Financial #: [id number] Pt. Type: O Room/Bed: / Admit/Disch: 11/05/18 [...] Complaints of Pain: No Skin Integrity Intact, [employer], Warm, & Dry Vitals - EU Blood Pressure 165/98 Pulse 100 bpm Respirations 18 br/min SPO2 RN Reviewed Yes Last Modified By: MISHA Khan RN, Lou Ann 11/05/18 16:05:02 Finalized By: MISHA Khan RN, Lou Ann Document Signatures Signed By: MISHA Khan RN, Lou Ann 11/05/18 16:05 Jojo Barba LPN 11/05/18 15:34 MISHA Khan RN, Lou Ann 11/05/18 16:[address] [facility] Operative Reporton 8 Operative Report [...] urine. The Urethra was dilated to: 26 Greek w/ sounds. Devices Implanted: None. Removal: Cystoscope is removed, The patient tolerated it well. Postoperative Information Discharge: Patient is discharged home with antibiotic coverage, Follow up arranged, The patient will follow-up in the office and 2-3 weeks. We will likely refer her to general surgery for repair of her rectocele once she is recovered from this procedure.. Normal [facility] Comment on above: Result Comment: Elec tronically Signed By: Timoteo Swann MD, Brandon Barajas\.vladimir\Date and Time Signed: 11/05/18 16:13 EST Vital Signs Date Time Vital Sign Value Performing Clinician Facility 02-26-2024 09:00-0400 Body height 162.[address] [facility] 02-26-2024 09:00-0400 Body mass index (BMI) [Ratio] 39.8 kg/m2 [facility] 02-26-2024 09:00-0400 Body temperature 99.2 [degF] [facility] 02-26-2024 09:00-0400 Body weight 105.[address] [facility] 02-26-2024 09:00-0400 Diastolic blood pressure 82 mm[Hg] [facility] 02-26-2024 09:00-0400 Heart rate 93 /min [facility] 02-26-2024 09:00-0400 Respiratory rate 16 /min [facility] 02-26-2024 09:00-0400 SaO2% (BldA) [Mass fraction] 96 % [facility] 02-26-2024 09:00-0400 Systolic blood pressure 120 mm[Hg] [facility] 01-13-2024 09:44-0500 Body height 162.6 cm Zee Rodney [employer] Work Phone: [facility] 01-13-2024 09:44-0500 Body mass index (BMI) [Ratio] 40.51 kg/m2 Zee Odessaholz [employer] Work Phone: [facility] 01-13-2024 09:44-0500 Body temperature 97.3 [degF] Zee Mansoorz [employer] Work Phone: [facility] 01-13-2024 09:44-0500 Body weight 107.05 kg Zee Jennhholz [employer] Work Phone: [facility] 01-13-2024 09:44-0500 Diastolic blood pressure 82 mm[Hg] Zee Aichholz [employer] Work Phone: [facility] 01-13-2024 09:44-0500 Heart rate 83 /min Zee Aichholz [employer] Work Phone: [facility] 01-13-2024 09:44-0500 Respiratory rate 18 /min Zee Aichholz [employer] Work Phone: [facility] 01-13-2024 09:44-0500 SaO2% (BldA) [Mass fraction] 94 % Zee Jennhholz [employer] Work Phone: [facility] 01-13-2024 09:44-0500 Systolic blood pressure 136 mm[Hg] Zee Aichholz [employer] Work Phone: [facility] 07-31-2023 09:00-0400 Body height 162.56 cm Rosanna Berny Other [facility] Other 07-31-2023 09:00-0400 Body mass index (BMI) [Ratio] 38.82 kg/m2 Rosanna Berny Other [facility] Other 07-31-2023 09:00-0400 Body temperature 96.9 [degF] Rosanna Berny Other [facility] Other 07-31-2023 09:00-0400 Body weight 102.6 kg Rosanna Berny Other [facility] Other 07-31-2023 09:00-0400 Diastolic blood pressure 80 mm[Hg] Rosanna Berny Other [facility] Other 07-31-2023 09:00-0400 Respiratory rate 18 /min Rosanna Berny Other [facility] Other 07-31-2023 09:00-0400 SaO2% (BldA) [Mass fraction] 97 % Rosanna Berny Other [facility] Other 07-31-2023 09:00-0400 Systolic blood pressure 130 mm[Hg] Rosanna Berny Other [facility] Other 11-01-2021 10:00-0500 Body height 162.56 cm Rosanna Berny Other [facility] Other 11-01-2021 10:00-0500 Body mass index (BMI) [Ratio] 39.92 kg/m2 Rosanna Berny Other [facility] Other 11-01-2021 10:00-0500 Body temperature 98.9 [degF] Rosanna Berny Other [facility] Other 11-01-2021 10:00-0500 Body weight 105.51 kg Rosanna Berny Other [facility] Other 11-01-2021 10:00-0500 Diastolic blood pressure 84 mm[Hg] Rosanna Berny Other [facility] Other 11-01-2021 10:00-0500 Respiratory rate 18 /min Rosanna Berny Other [facility] Other 11-01-2021 10:00-0500 SaO2% (BldA) [Mass fraction] 98 % Rosanna Berny Other [facility] Other 11-01-2021 10:00-0500 Systolic blood pressure 140 mm[Hg] Rosanna Berny Other [facility] Other 09-12-2021 14:00-0400 Body height 162.56 cm Michael Abhishekmargarita Other [facility] Other 09-12-2021 14:00-0400 Body mass index (BMI) [Ratio] 39.65 kg/m2 Michael Mcguire Other [facility] Other 09-12-2021 14:00-0400 Body weight 104.78 kg Michael Mcguire Other [facility] Other 09-12-2021 14:00-0400 Diastolic blood pressure 100 mm[Hg] Michael Mcguire Other [facility] Other 09-12-2021 14:00-0400 Systolic blood pressure 164 mm[Hg] Michael Mcguire Other [facility] Other Encounters Encounter Date Encounter Type Care Provider Facility Start: 02-26-2024 End: 02-26-2024 ambulatory [facility] Work Phone: Start: 02-26-2024 End: 02-26-2024 Patient encounter procedure [facility] Physician [facility] Nephrology Jose Guadalupe Work Phone: Start: 02-24-2024 End: 02-24-2024 ambulatory ZEE AICHHOLZ Not Available Start: 01-13-2024 Bamboo flowsheet Zee Aichholz [employer] Work Phone: [facility] Start: 01-13-2024 Bamboo flowsheet Zee Aichholz [employer] Work Phone: [facility] Start: 01-13-2024 End: 01-13-2024 ambulatory ZEE AICHHOLZ Not Available Start: 01-13-2024 End: 01-13-2024 Office outpatient visit 25 minutes Zee Aichholz [employer] Work Phone: [facility] Comment on above: Primary hypertension (CMS/HCC) (Primary Dx); Tobacco user; BMI 40.0-44.9, adult (CMS/HCC); Hypothyroidism, unspecified type (CMS/HCC); Mixed hyperlipidemia (CMS/HCC); Acute non-recurrent sinusitis of other sinus; AYAH (obstructive sleep apnea); Stage 3 chronic kidney disease, unspecified whether stage 3a or 3b CKD (HCC) (CMS/HCC); Class 3 severe obesity with serious comorbidity and body mass index (BMI) of 40.0 to 44.9 in adult, unspecified obesity type (CMS/HCC) Start: 07-31-2023 End: 07-31-2023 ambulatory Rosanna Berny Other [facility] Other Start: 07-31-2023 Office outpatient vi sit 25 minutes Rosanna Berny [facility] Jose Guadalupe Start: 02-03-2023 End: 02-04-2023 ambulatory ABSTRACTER ZEE AICHHOLZ Facility:[facility]1 Start: 12-31-2022 End: 01-01-2023 ambulatory ROSANNA BERNY Facility:[facility] Start: 12-10-2022 End: 12-11-2022 ambulatory ABSTRACTER ZEE AICHHOLZ Facility:[facility] Start: 08-13-2022 End: 08-14-2022 ambulatory ABSTRACTER ZEE AICHHOLZ Facility:[facility] Start: 06-27-2022 Telephone encounter Michael Mcguire [facility] Gastroenterology Start: 06-27-2022 End: 06-28-2022 ambulatory ABSTRACTER ZEE AICHHOLZ Melty Other Start: 05-28-2022 End: 05-29-2022 ambulatory ROSANNA BERNY Facility:[facility]1 Start: 03-29-2022 End: 03-30-2022 ambulatory ABSTRACTER ZEE AICCarisaHOLZ Facility:[facility]1 Start: 03-26-2022 End: 03-27-2022 ambulatory ABSTRACTER ZEE AICHHOLZ Facility:[facility]1 Start: 03-05-2022 End: 03-06-2022 ambulatory ABSTRACTER ZEE AICHHOLZ Facility:[facility]1 Start: 11-01-2021 End: 11-01-2021 ambulatory Rosanna Berny Other [facility] Other Start: 11-01-2021 Office outpatient vi sit 15 minutes Rosanna Berny [facility] Jose Guadalupe Start: 10-05-2021 End: 10-05-2021 ambulatory Michael Mcguire Other [facility] Other Start: 10-05-2021 Telephone encounter Michael Mcguire [facility] Gastroenterology Start: 09-12-2021 Office outpatient vi sit 25 minutes Michael Mcguire [facility] Gastro[facility] Procedures Date Procedure Procedure Detail Performing Clinician Start: 09-24-2023 Mammography Zeerubina Barajaschad lopez [employer] Work Phone: Plan of Treatment Date Care Activity Detail Author Start: 09-26-2026 Screening for malignant neoplasm of colon [facility] Start: 09-24-2024 Screening for malignant neoplasm of breast Mammogram [facility] Start: 05-30-2024 Influenza vaccination Influenza Vacc ine (#1) [facility] Comment on above: Postponed from 08/01 (Patient Refused) Start: 02-24-2024 End: 02-24-2024 Patient encounter procedure 02/24/2024 10:00 AM EDT Office Visit [facility] [address] [place] [address] Zee Stevens, [employer] [address] [place] [address] [facility] Start: 01-13-2024 End: 01-13-2025 Lipid 1996 panel - Serum or Plasma Lipid panel Lab Routine Mixed hyperlipidemia (CMS/HCC) Expected: 01/13/2024 (Approximate), Expires: 01/13/2025 [facility] Comment on above: Expected: 01/13/2024 (Approximate), Expires: 01/13/2025 Start: 01-13-2024 End: 01-13-2025 Thyrotropin [Units/volume] in Serum or Plasma TSH Lab Routine Hypothyroidism, unspecified type (CMS/HCC) Expected: 01/13/2024 (Approximate), Expires: 01/13/2025 [facility] Work Phone: Comment on above: Expected: 01/13/2024 (Approximate), Expires: 01/13/2025 Start: 01-13-2024 End: 01-13-2025 Thyroxine (T4) free [Mass/volume] in Serum or Plasma T4, free Lab Routine Hypothyroidism, unspecified type (CMS/HCC) Expected: 01/13/2024 (Approximate), Expires: 01/13/2025 [facility] Comment on above: Expected: 01/13/2024 (Approximate), Expires: 01/13/2025 Start: 01-13-2024 End: 01-13-2024 Patient encounter procedure 01/13/2024 9:40 AM EST Office Visit [facility] [address] [place] [id number] Zee Stevens NP [address] [place] [address] Arrived [facility] Comment on above: Arrived Start: 08-01-2023 Influenza vaccination Influenza Vacc ine (#1) [facility] Start: 1965 Medicare Annual Wellness (AWV) Medicare Annual Wellness (AWV) [facility] Start: 1965 Screening for malignant neoplasm of colon [facility] Renal function 2000 panel - Serum or Plasma [facility] Immunizations Immunization Date Immunization Notes Care Provider Fa cility 09-10-2022 influenza virus vacc ine, unspecified formulation Zee Stevens NP Work Phone: [facility] Payers Date Payer Category Payer Medicaid MEDICAID [facility] [id number] 2022-Present [phone] [address] [place] [address] Medicaid [id number] 2020 Medicare MEDICARE MEDICAR E PART B [id number] 2020-Present [address] [address] [place] [address] Medicare [id number] 1965 Unknown [id number] [id number]. 593 1965 Unknown [id number] 2.16.840.1.990825.3.579.2. 593 1967 Unknown [id number] 2.16.840.1.211419.3.579.2. 593 1965 Unknown [id number] 2.16.840.1.823438.3.579.2. 593 1965 Unknown [id number] 2.16.840.1.975955.3.579.2. 593 1965 Unknown [id number] 2.16.840.1.302273.3.579.2. 593 1965 Unknown [id number] 2.16.840.1.318383.3.579.2. 593 1965 Unknown [id number] 2.16.840.1.644181.3.579.2. 593 1967 Unknown [id number] 2.16.840.1.910063.3.579.2. 593 1965 Unknown [id number] 2.16.840.1.773036.3.579.2. 1259 1965 Unknown [id number] 2.16.840.1.027437.3.579.2. 1259 1957 Medicaid [id number] [id number] 1957 Medicare [id number] Medicaid [place] Advantage [id number] Self-pay Self Pay [id number] Unknown Ankit BC/BS [id number] Worker's [facility] [id number] Social History Date Type Detail Facility Unknown if ever smoked [facility] Other Start: 10-08-2023 End: 01-13-2024 Sex Assigned At [facility] Start: 06-18-2023 [facility] History of tobacco use Cigarette Smoker [facility] Start: 06-18-2023 End: 01-13-2024 Cigarettes smoked [...] more than 4 cups per day; coffee/soda [facility] Start: 1965 Sex Assigned At Not on file [facility] Start: 02-26-2024 Tobacco smoking stat [facility] Smoker (finding) [facility] Start: 1965 Sex Assigned At Female F [facility] Clinical Notes 09-12-2021 to 01-13-2024 Zee Stevens NP - 01/13/2024 11:07 AM Fe Stevens, PHILIPP - 01/13/2024 11:04 AM Fe Stevens, PHILIPP - 01/13/2024 11:04 AM ESTZee Stevens, PHILIPP - 01/13/2024 11:02 AM EST Note Date & Type Note Facility 01-13-2024 History of Presen t illness Narrative Associated Problem(s): Class 3 severe obesity with serious comorbidity and body mass index (BMI) of 40.0 to 44.9 in adult (CMS/[facility]) Would like to take adipex [...] this also helps SALINAS Associated Problem(s): Hypothyroidism (CMS/HCC) Check labs with next nephrology draw Associated [...] Medical History: Diagnosis Date Anxiety and depression ([facility]) 01/13/2024 Bilateral leg paresthesia Chronic renal disease, stage III (HCC) ([facility]) Constipation COPD (chronic obstructive pulmonary disease) ([facility]) 01/13/2024 COVID-19 virus infection DDD (degenerative disc disease), cervical Elevated alkaline phosphatase level Elevated blood uric acid level Environmental and seasonal allergies Fibromyalgia GERD (gastroesophageal reflux disease) HLD (hyperlipidemia) ([facility]) Hypertension ([facility]/HCC) Hypothyroidism ([facility]) Lumbar degenerative disc disease Major depression, chronic ([facility]) Migraine headache ([facility]) Neuropathy, peripheral AYAH (obstructive sleep apnea) CPAP titration @10cm H2O, small air touch, ramp time 20 minutes Positive MINI (antinuclear antibody) PVD (peripheral vascular disease) ([facility]) Raynauds phenomenon Spinal stenosis Spondylolisthesis Thyroid disease ([facility]) Tobacco user Vitamin B12 deficiency Vitamin D [...] also cause some degree of SALINAS Hypertension ([facility]/HCC) Stable at this time No changes in med dose Chronic renal disease, stage III (HCC) ([facility]) Continue with Nephrology Hypothyroidism ([facility]) - Primary Check labs with next nephrology draw Relevant Orders TSH T4, free Tobacco user HLD (hyperlipidemia) ([facility]) Relevant Orders Lipid panel BMI 40.0-44.9, adult ([facility]) Relevant Medications phentermine (Adipex-P) 37.5 MG tablet Other acute sinusitis Nasal and sinus exam support sinusitis Will trial atb to see if this also helps SALINAS Relevant Medications amoxicillin-clavulanate (Augmentin) 875-125 MG tablet Class 3 severe obesity with serious comorbidity and body mass index (BMI) of 40.0 to 44.9 in adult ([facility]) Would like to take adipex [...] contraindications OARRS reviewed documented in this encounter [facility] 07-31-2023 Evaluation note Encounter Date Diagnosis Assessment [...] due to the PPI. Continue oral magnesium [facility] Other 07-28-2022 Evaluation note* Encounter Date Diagnosis Assessment Notes Treatment Notes Treatment Clinical Notes May, Constipation (ICD-10 - K59.00) [facility] Other 12-02-2021 Evaluation note* Encounter Date Diagnosis Assessment Notes Treatment Notes Treatment Clinical Notes Oct, Holger hy kid w cr [...] Oct, Hypokalemia (ICD-10 - E87.6) Continue spironolactone. [facility] Other 10-13-2021 Evaluation note* Encounter Date Diagnosis Assessment Notes Treatment Notes Treatment Clinical Notes Aug, Irritable bowel syndrome with constipation (ICD-10 - K58.1) PT TO REPORT PROGRESS Aug, Gastroparesis (ICD-1 0 - K31.84) Aug, Upper abdominal pain (ICD-10 - R10.10) [facility] Other Evaluation noteNo InformationNort [employer] Other Evaluation note* Diagnosis Primary hypertension (CMS/HCC)- Primary Unspecified essential [...] type (CMS/HCC) [facility] Diagnosis Onset Date Resolution Status CKD (chronic kidney disease) stage 3, GFR 30-59 ml/min acute [id number] acute Hyperuricemia acute Hypokalemia acute Hypomagnesemia acute Vitamin D deficiency acute [facility] Work Phone: Hism[facility] general Narrative - Reported* Type Description Date Medical History Hypothyroidism Medical History peripheral neuropathy sensory ne uropathy Medical History fibromyalgia Medical History rheumatic heart disease Medical History COPD Medical History anxiety Medical History chronic depression Medical History kidney issues Medical History low back nerve issues Medical History gastro issues Surgical History hysterectomy Surgical History ganglion cyst Surgical History carpal tunnel release Surgical History cholecystectomy Surgical History ORAL SURGERY 12/13/2019 Surgical History RECTAL PROLAPSE AND BLADDER TAHIR PENSION 05/2019 Hospitalization History see above [facility] Other Hiso[facility] general Narrative - Reported* Type Description Date Medical History Hypothyroidism Medical History peripheral neuropathy sensory ne uropathy Medical History fibromyalgia Medical History rheumatic heart disease Medical History COPD Medical History anxiety Medical History chronic depression Medical History kidney issues Medical History low back nerve issues Medical History gastro issues Medical History FATTY LIVER Surgical History hysterectomy Surgical History ganglion cyst Surgical History carpal tunnel release Surgical History cholecystectomy Surgical History ORAL SURGERY 12/13/2019 Surgical History RECTAL PROLAPSE AND BLADDER TAHIR PENSION 05/2019 Hospitalization History see above [facility] Other History general Narrative - Reported* Type Description Date Medical History Hypothyroidism Medical History peripheral neuropathy sensory ne uropathy Medical History fibromyalgia Medical History rheumatic heart disease Medical History COPD Medical History anxiety Medical History chronic depression Medical History kidney issues Medical History low back nerve issues Medical History gastro issues Medical History FATTY LIVER Surgical History hysterectomy Surgical History ganglion cyst Surgical History carpal tunnel release Surgical History cholecystectomy Surgical History ORAL SURGERY 12/13/2019 Surgical History RECTAL PROLAPSE AND BLADDER TAHIR PENSION 05/2019 Surgical History INJECTIONS IN LEFT HIP Hospitalization History see above [employer] Other Summary Purpose Family History Relationship Condition Age at Onset Recorded Date/T opal father Unknown Malignant neoplasm Unknown Hypertension Unknown Heart disease Unknown Not Specified Unknown Advance Directives Advance Directive Response Recorded Date/ Time Advance Directives No May 18 12:36pm Chief Complaint and Reason for Visit Chief Complaint RENAL 6 month Follow up Reason for Visit CKD (chronic kidney disease) stage 3, GFR 30-59 ml/min [id number] Hyperuricemia Hypokalemia Hypomagnesemia Vitamin D deficiency Additional Source Comments INFORMATION SOURCE (unrecogn ized section and content) DATE CREATED AUTHOR 08/12/2019 [facility] DATE CREATED AUTHOR AUTHOR'S ORGANIZ ATION 09/16/2019 [facility] DATE CREATED AUTHOR AUTHOR'S ORGANIZ ATION 01/15/2022 [facility] DATE CREATED AUTHOR AUTHOR'S ORGANIZ ATION 02/05/2023 [facility] DATE CREATED AUTHOR AUTHOR'S ORGANIZ ATION 02/25/2024 [facility] EPIC REASON FOR VISIT (unrecogniz ed section and content) PT HERE FOR 4-6 WEEK FOLLOW UP SHE WAS TO INCREASE LINZESS TO [address] AND START ZOFRAN AND CARAFATE AT LAST OFFICE VISITClinical Acute IllnessCKDRefillsCKD and HTN Care Teams (unrecognized sec tion and content) General Dentist/Owner Relationship Specialty Start Date End Date Ry Tillman MD [address] [place] [address] PCP - General Family Medicine 01/12/24 General Dentist/Owner Relationship Specialty Start Date End Date Ry Tillman MD [address] [place] [address] PCP - General Family Medicine 01/12/24 Team Status: Active Member Role Status Dates NON STAFF Primary Care Provider Active Team Status: Inactive Member Role Status Dates NON STAFF Primary Care Provider Active Start: February 26, 2024 End: February 26, 2024 Rosanna Sifuentes MD Attending Provider Active Start : February 26, 2024 End: February 26, 2024 Goals (unrecognized section and content) Goals may be documented in a n alternate section FOR RECORDS PERTAINING TO PATIENTS WHO ARE [...] BE BASED ON THE PRIMARY CLINICAL RECORDS. [employer] provides no warranty or guarantee of the accuracy or completeness of information in this document.
[2024-04-23 11:02] LABS: Free T4 1.24 ng/dL (0.76-1.46); Thyroid Stimulating Hormone 0.122 uIU/mL (0.358-3.740)
== END 2024-04-23 08:30 | disposition home or self-care (01) ==
LOC: LAB 08:29
PROVIDERS: PCP Nurse Practitioner; Visit Provider Nurse Practitioner
DX: E03.9 Hypothyroidism, unspecified (principal)
CPT/HCPCS: 36415; 84439; 84443